=== PATIENT | male | born 1935 | race Caucasian/White ===

== ENCOUNTER → 2016-08-21 | Outpatient (CLI) | payer MEDICARE ==
--- NOTE | 2016-08-21 13:20 | CT ---
EXAMINATION TYPE: CT brain wo con DATE OF EXAM: 08/21/2016 COMPARISON: NONE HISTORY: memory loss CT DLP: [address] of the brain was performed. The ventricles, basal cisterns and sulci overlying the cerebral convexities demonstrate moderate enla rgement. There is no evidence for intracranial hemorrhage or sulcal effacement. There is decreased attenuation about the periventricular white matter and deep white matter of both c erebral hemispheres, compatible with chronic small vessel ischemia. Differential diagnosis does inclu de demyelination. No mass effects are seen.No midline shift. Osseous calvarium is intact. If symptoms persist consider MRI. IMPRESSION: 1. Age related atrophic and chronic small vessel ischemic change without acute intracranial process s een at this time.
--- NOTE | 2016-08-21 14:07 | US ---
EXAMINATION TYPE: US carotid duplex BILAT DATE OF EXAM: 08/21/2016 COMPARISON: NONE CLINICAL HISTORY: R41.3 amnesia. Neck pain EXAM MEASUREMENTS: RIGHT: Peak Systolic Velocity (PSV) cm/sec ----- Right CCA: 63.9 ----- Right ICA: 123.6 ----- Right ECA: 110.2 ICA/CCA ratio: 1.9 RIGHT: End Diastole cm/sec ----- Right CCA: 11.9 ----- Right ICA: 26.2 ----- Right ECA: 10.1 LEFT: Peak Systolic Velocity (PSV) cm/sec ----- Left CCA: 76.9 ----- Left ICA: 95.6 ----- Left ECA: 103.6 ICA/CCA ratio: 1.2 LEFT: End Diastole cm/sec ----- Left CCA: 15.5 ----- Left ICA: 22.2 ----- Left ECA: 11.5 VERTEBRALS (direction of flow): Right Vertebral: Antegrade Left Vertebral: Antegrade Bilateral intimal thickening, plaque: throughout bilateral CCA, bulb, ICA and ECA, no elevated veloci ties, no significant stenosis seen at this time Technically difficult and suboptimal visualization of right ICA due to tortuous vessel IMPRESSION: I DO NOT SEE EVIDENCE OF A HEMODYNAMICALLY SIGNIFICANT STENOSIS IN EITHER CAROTID SYSTEM. Criteria for Assigning % of Stenosis / Diameter reduction (Estimation based on the indirect measurements of the internal carotid artery velocities (ICA PSV). 1. Normal (no stenosis)=ICA PSV < 125 cm/s: ratio < 2.0: ICA EDV<40 cm/s. 2. Less than 50% stenosis=ICA PSV < 125 cm/s: ratio < 2.0: ICA EDV<40 cm/s. 3. 50 to 69% stenosis=ICA PSV of 125 to 230 cm/s: ration 2.0 ? 4.0: ICA EDV 40-100 cm/s. 4. Greater than 70% stenosis to near occlusion= ICA PSV > 230 cm/s: ratio > 4.0: ICA EDV > 100 cm/s. 5. Near occlusion= ICA PSV velocities may be low or undetectable: variable ratio and ICA EDV. 6. Total occlusion=unable to detect flow.
== END | disposition home or self-care (01) ==
LOC: RADCTMAIN 12:42
PROVIDERS: ATTEND Family Medicine
DX: I67.82 Cerebral ischemia (principal)
CPT/HCPCS: 70450; 93880

== ENCOUNTER → 2016-09-11 | Outpatient (CLI) | payer MEDICARE ==
--- NOTE | 2016-09-11 09:23 | US ---
EXAMINATION TYPE: US abdomen complete DATE OF EXAM: 09/11/2016 COMPARISON: CT abdomen and pelvis July 08, 2015. PET/CT December 21, 2015 CLINICAL HISTORY: R10.9 ABD Pain. LUQ per patient. History of lung cancer. EXAM MEASUREMENTS: Liver Length: 11.9 cm Gallbladder Wall: 0.4 cm CBD: 0.4 cm Spleen: 8.7 cm Right Kidney: 10.5 x 4.8 x 5.3 cm Left Kidney: 10.4 x 5.2 x 4.9 cm Pancreas: not visualized ankit to bowel gas Liver: wnl Gallbladder: many stones with shadowing Evidence for sonographic Ritchie's sign: No CBD: wnl Spleen: wnl Right Kidney: No hydronephrosis or masses seen Left Kidney: No hydronephrosis or masses seen Upper IVC: wnl Abd Aorta: calcified The visualized liver is slightly heterogeneous. The intrahepatic portion of the IVC is within normal limits. There is some ectasia and atherosclerotic change of visualized abdominal aorta. Multiple sha dowing mobile gallstones are seen in gallbladder. Common bile duct is unremarkable. The pancreas is obscured by overlying bowel gas. The spleen is unremarkable. Kidneys are symmetric and free of hyd ronephrosis. No renal lesions are seen. IMPRESSION: Gallstones without secondary ultrasound evidence for acute cholecystitis. Suboptimal eval uation of pancreas otherwise no significant finding is seen to account for patient's symptoms.
== END | disposition home or self-care (01) ==
LOC: RADUSWWP 07:47
PROVIDERS: ATTEND Family Medicine
DX: K80.20 Calculus of gallbladder without cholecystitis without obstruction (principal); K86.9 Disease of pancreas, unspecified
CPT/HCPCS: 76700

== ENCOUNTER 2016-09-15 17:58 | Observation (INO) | payer MEDICARE ==
[2016-09-15] MEDS ORDERED: SODIUM CHLORIDE 0.9% 500 ML IV STA (18:27)
[2016-09-15] MEDS ORDERED: RX INFO: IV CONTRAST WAS GIVEN 1 EACH MISC MISCELLANE PRN (18:27)
[2016-09-15] MEDS ORDERED: PANTOPRAZOLE 40 MG/10 ML VIAL IVP STA (18:33)
[2016-09-15 19:18] LABS: Basophils # (A) 0.1 k/uL (0-0.2); Basophils % (A) 1 %; CH 34.5; CHCM 32.8; Eosinophils # (A) 0.1 k/uL (0-0.7); Eosinophils % (A) 1 %; HDW 3.25; Luc # (Auto) 0.22; Luc % (Auto) 2; Lymphocytes # (A) 0.6 k/uL (1.0-4.8); Lymphocytes % (A) 7 %; MCH 35.3 pg (25.0-35.0); MCHC 33.3 g/dL (31.0-37.0); MCV 106.1 fL (80.0-100.0); Macrocytosis Moderate; Mean Platelet Volume 8.4; Monocytes # (A) 0.4 k/uL (0-1.0); Monocytes % (A) 5 %; Neutrophils # (A) 7.8 k/uL (1.3-7.7); Neutrophils % (A) 85 %; RBC 2.83 m/uL (4.30-5.90); RDW 14.9 % (11.5-15.5); WBC 9.2 k/uL (3.8-10.6); WBC (Perox) 9.41
[2016-09-15 19:27] LABS: Partial Thromboplastin Time 23.8 sec (22.0-30.0); Prothrombin Time 9.8 sec (9.0-12.0)
[2016-09-15 19:33] LABS: ALT 21 U/L (21-72); AST 22 U/L (17-59); Alkaline Phosphatase 88 U/L (38-126); Amylase 118 U/L (30-110); Anion Gap 11 mmol/L; Blood Urea Nitrogen 27 mg/dL (9-20); Calcium 9.2 mg/dL (8.4-10.2); Carbon Dioxide 29 mmol/L (22-30); Chloride 105 mmol/L (98-107); Glucose 93 mg/dL (74-99); Non-African American GFR(MDRD) >60 (>60 ml/min/1.73 sqM); Potassium 5.1 mmol/L (3.5-5.1); Sodium 145 mmol/L (137-145); Total Bilirubin 0.5 mg/dL (0.2-1.3)
[2016-09-15] MEDS ORDERED: ONDANSETRON 4 MG/2 ML VIAL IVP STA (19:55)
[2016-09-15] MEDS ORDERED: MORPHINE SULFATE 4 MG/ML SYRINGE IVP STA (19:55)
--- NOTE | 2016-09-15 20:23 | CT ---
EXAMINATION TYPE: CT abdomen pelvis w con DATE OF EXAM: 09/15/2016 COMPARISON: 07/08/2015 HISTORY: History of gall stones. Right upper quadrant pain x 3-[address] DLP: 364.60 mGycm CONTRAST: CT scan of the abdomen and pelvis is performed without Oral Contrast and with IV Contrast, patient in jected with 100 mL of Omnipaque 300. FINDINGS: LUNG BASES-: No visible nodule. No infiltrate. LIVER/GB: Small air-containing gallstones are noted. No evidence for wall thickening. No space occ upying hepatic lesion. Biliary tree is of normal caliber. PANCREAS: No inflammation. No distinct mass. SPLEEN: No splenic enlargement. No lesion seen. ADRENALS: No nodule. No thickening. KIDNEYS/BLADDER: No hydronephrosis. Nonobstructing nephrolithiasis of the lower pole left kidney. No disctinct renal mass. Urinary bladder grossly unremarkable. BOWEL: Normal appendix. Normal bowel caliber. No inflammation. Right inguinal hernia contains a gordy rt segment of small bowel. No evidence for strangulation or bowel obstruction. Moderate fecal stasis. GENITAL ORGANS: No gross abnormality. LYMPH NODES: No greater than 1cm abdominal or pelvic lymph nodes are appreciated. AORTA: No significant abnormality. OSSEOUS STRUCTURES: No significant abnormality is seen. OTHER: No significant additional abnormality is seen. IMPRESSION: 1. Right inguinal hernia contains a short segment of small bowel. No evidence for strangulation or genia wel obstruction. 2. Cholelithiasis. 2. Nonobstructing left-sided nephrolithiasis.
--- NOTE | 2016-09-15 20:23 | XR ---
EXAMINATION TYPE: XR KUB DATE OF EXAM: 09/15/2016 COMPARISON: NONE HISTORY: Pain TECHNIQUE: Single supine KUB image of the abdomen is obtained FINDINGS: Small bowel demonstrates no evidence for dilatation or air fluid levels. Gas and fecal material is seen in non-distended colon. No convincing evidence for pneumoperitoneum. No unusual calcifications. The lung bases are clear. The osseous structures are intact. IMPRESSION: 1. Overall nonobstructive bowel gas pattern.
[2016-09-15] MEDS ORDERED: NALOXONE 0.4 MG/ML 1 ML VIAL IV PRN (20:35)
[2016-09-15] MEDS ORDERED: ONDANSETRON 4 MG/2 ML VIAL IVP PRN (20:40)
[2016-09-15] MEDS ORDERED: MORPHINE SULFATE 4 MG/ML SYRINGE IV PRN (20:40)
--- NOTE | 2016-09-15 20:58 | ED ---
General Adult HPI - General Chief complaint: Abdominal Pain Stated complaint: abd pain-dx w/ gall stones last week Time Seen by Provider: 09/15/16 18:09 Source: patient Mode of arrival: ambulatory Limitations: no limitations - History of Present Illness Initial comments: 81-year-old male presents with a 2 month history of generalized abdominal pain. Patient is accompanied by his who states that over the past several days his pain has worsened. Denies any nausea vomiting or diarrhea. Pain is diffuse although does seem to be located in the left upper quadrant. Sharp in nature. Currently 5 out of 10 in severity. Patient was recently diagnosed with gallstones approximately one month ago and currently has an appointment to see general surgery. Patient denies chest pain or shortness of breath. Denies fever or chills. States he has had dark tarry stools for the last several days. He is currently only taking vitamins no current prescription medications. Denies NSAID use. Denies alcohol abuse. Patient does have past medical history of gastric reflux although he is not currently on any medication. - Related Data Home Medications Medication Instructions Recorded Confirmed Cholecalciferol [Vitamin D3] 1,000 unit PO DAILY 09/15/16 09/15/16 Cyanocobalamin (Vitamin B-12) 1,000 mcg PO DAILY 09/15/16 09/15/16 [Vitamin B-12] Allergies Allergy/AdvReac Type Severity Reaction Status Date / Time No Known Allergies Allergy Verified 09/15/16 18:56 Review of Systems ROS Statement: Those systems with pertinent positive or pertinent negative responses have been documented in the HPI. ROS Other: All systems not noted in ROS Statement are negative. 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-pt denies, history of pneumothorax, hx scarlet fever, chronic gastritis, left upper lobe lung mass History of Any Multi-Drug Resistant Organisms: None Reported Past Surgical History: Adenoidectomy, Tonsillectomy Additional Past Surgical History / Comment(s): LEFT CAROTID ENDARTERECTOMY Past Anesthesia/Blood Transfusion Reactions: No Reported Reaction Past Psychological History: No Psychological Hx Reported Smoking Status: Former smoker Past Alcohol Use History: None Reported Past Drug Use History: None Reported - Past Family History Father Family Medical History: Diabetes Mellitus Brother(s) Family Medical History: Deep Vein Thrombosis (DVT) General Exam Limitations: no limitations General appearance: alert, in no apparent distress Head exam: Present: atraumatic, normocephalic, normal inspection Eye exam: Present: normal appearance, PERRL, EOMI ENT exam: Present: normal exam Neck exam: Present: normal inspection, full ROM. Absent: tenderness Respiratory exam: Present: normal lung sounds bilaterally Cardiovascular Exam: Present: regular rate, normal rhythm GI/Abdominal exam: Present: soft, tenderness, hyperactive bowel sounds. Absent : distended, guarding Rectal exam: Present: heme (+) stool, black stool exam: Present: normal inspection External exam: Present: normal external exam Extremities exam: Present: normal inspection Neurological exam: Present: alert, oriented X3, CN II-XII intact Psychiatric exam: Present: normal affect, normal mood Skin exam: Present: warm, dry Course Vital Signs 09/15/16 09/15/16 09/15/16 18:03 18:14 18:53 Temperature 99.1 F 97.3 F L 98.7 F Pulse Rate 95 83 78 Respiratory 20 16 18 Rate Blood Pressure 147/67 187/77 175/72 O2 Sat by Pulse 98 97 96 Oximetry 09/15/16 20:18 Temperature Pulse Rate 95 Respiratory 18 Rate Blood Pressure 155/70 O2 Sat by Pulse 97 Oximetry - Reevaluation(s) Time: 20:00 Medical Decision Making - Medical Decision Making 81-year-old male presenting with 2 month history of abdominal pain. This pain is worse over the past 2 days. Patient does report melanotic stool. He has received an outpatient workup for his abdominal pain including ultrasound which cholelithiasis and no signs of cholecystitis. On examination patient has generalized tenderness to palpation, hyperactive bowel sounds, non-distended abdomen. Stool is melanotic and Hemoccult positive. Remainder of the physical examination is unremarkable. Patient receives IV pain medication and antiemetics in the emergency department as well as Protonix. Abdominal x-ray shows normal gas pattern, CT of the abdomen and pelvis with IV contrast is obtained and is negative for any acute intra-abdominal process. Laboratory studies reveal hemoglobin 10.0, no elevation in white count, lactic acid is 1 which is normal. Electrolytes are within normal limits. EKG shows normal sinus rhythm with first-degree AV block, ventricular rate of 84 , NE interval is 252, QRS duration is 96, QTC is 444 Patient is made NPO, given IV fluids and will be admitted to internal medicine, Gen. surgery was placed on consult. - Lab Data Result diagrams: 09/15/16 18:50 09/15/16 18:50 Lab Results 09/15/16 09/15/16 09/15/16 Range/Units 18:50 18:50 18:50 WBC 9.2 (3.8-10.6) k/uL RBC 2.83 L (4.30-5.90) m/uL Hgb 10.0 L (13.0-17.5) gm/dL Hct 30.0 L (39.0-53.0) % MCV 106.1 H (80.0-100.0) fL MCH 35.3 H (25.0-35.0) pg MCHC 33.3 (31.0-37.0) g/dL RDW 14.9 (11.5-15.5) % Plt Count 167 (150-450) k/uL Neutrophils % 85 % Lymphocytes % 7 % Monocytes % 5 % Eosinophils % 1 % Basophils % 1 % Neutrophils # 7.8 H (1.3-7.7) k/uL Lymphocytes # 0.6 L (1.0-4.8) k/uL Monocytes # 0.4 (0-1.0) k/uL Eosinophils # 0.1 (0-0.7) k/uL Basophils # 0.1 (0-0.2) k/uL Macrocytosis Moderate PT 9.8 (9.0-12.0) sec INR 1.0 (<1.1) APTT 23.8 (22.0-30.0) sec Sodium 145 (137-145) mmol/L Potassium 5.1 (3.5-5.1) mmol/L Chloride 105 (98-107) mmol/L Carbon Dioxide 29 (22-30) mmol/L Anion Gap 11 mmol/L BUN 27 H (9-20) mg/dL Creatinine 0.91 (0.66-1.25) mg/dL Est GFR (MDRD) Af Amer >60 (>60 ml/min/1.73 sqM) Est GFR (MDRD) Non-Af >60 (>60 ml/min/1.73 sqM) Glucose 93 (74-99) mg/dL Plasma Lactic Acid Jam (0.7-2.0) mmol/L Calcium 9.2 (8.4-10.2) mg/dL Total Bilirubin 0.5 (0.2-1.3) mg/dL AST 22 (17-59) U/L ALT 21 (21-72) U/L Alkaline Phosphatase 88 (38-126) U/L Troponin I (0.000-0.034) ng/mL Total Protein 7.0 (6.3-8.2) g/dL Albumin 3.7 (3.5-5.0) g/dL Amylase 118 H (30-110) U/L Lipase 279 (23-300) U/L Stool Occult Blood (Negative) Blood Type Blood Type Recheck Antibody Screen Spec Expiration Date 09/15/16 09/15/16 09/15/16 Range/Units 18:50 18:50 19:15 WBC (3.8-10.6) k/uL RBC (4.30-5.90) m/uL Hgb (13.0-17.5) gm/dL Hct (39.0-53.0) % MCV (80.0-100.0) fL MCH (25.0-35.0) pg MCHC (31.0-37.0) g/dL RDW (11.5-15.5) % Plt Count (150-450) k/uL Neutrophils % % Lymphocytes % % Monocytes % % Eosinophils % % Basophils % % Neutrophils # (1.3-7.7) k/uL Lymphocytes # (1.0-4.8) k/uL Monocytes # (0-1.0) k/uL Eosinophils # (0-0.7) k/uL Basophils # (0-0.2) k/uL Macrocytosis PT (9.0-12.0) sec INR (<1.1) APTT (22.0-30.0) sec Sodium (137-145) mmol/L Potassium (3.5-5.1) mmol/L Chloride (98-107) mmol/L Carbon Dioxide (22-30) mmol/L Anion Gap mmol/L BUN (9-20) mg/dL Creatinine (0.66-1.25) mg/dL Est GFR (MDRD) Af Amer (>60 ml/min/1.73 sqM) Est GFR (MDRD) Non-Af (>60 ml/min/1.73 sqM) Glucose (74-99) mg/dL Plasma Lactic Acid Jam 1.0 (0.7-2.0) mmol/L Calcium (8.4-10.2) mg/dL Total Bilirubin (0.2-1.3) mg/dL AST (17-59) U/L ALT (21-72) U/L Alkaline Phosphatase (38-126) U/L Troponin I 0.032 (0.000-0.034) ng/mL Total Protein (6.3-8.2) g/dL Albumin (3.5-5.0) g/dL Amylase (30-110) U/L Lipase (23-300) U/L Stool Occult Blood (Negative) Blood Type O Positive Blood Type Recheck No Antibody Screen NEGATIVE Spec Expiration Date 09/18/2016 - 234909/15/16 Range/Units 19:30 WBC (3.8-10.6) k/uL RBC (4.30-5.90) m/uL Hgb (13.0-17.5) gm/dL Hct (39.0-53.0) % MCV (80.0-100.0) fL MCH (25.0-35.0) pg MCHC (31.0-37.0) g/dL RDW (11.5-15.5) % Plt Count (150-450) k/uL Neutrophils % % Lymphocytes % % Monocytes % % Eosinophils % % Basophils % % Neutrophils # (1.3-7.7) k/uL Lymphocytes # (1.0-4.8) k/uL Monocytes # (0-1.0) k/uL Eosinophils # (0-0.7) k/uL Basophils # (0-0.2) k/uL Macrocytosis PT (9.0-12.0) sec INR (<1.1) APTT (22.0-30.0) sec Sodium (137-145) mmol/L Potassium (3.5-5.1) mmol/L Chloride (98-107) mmol/L Carbon Dioxide (22-30) mmol/L Anion Gap mmol/L BUN (9-20) mg/dL Creatinine (0.66-1.25) mg/dL Est GFR (MDRD) Af Amer (>60 ml/min/1.73 sqM) Est GFR (MDRD) Non-Af (>60 ml/min/1.73 sqM) Glucose (74-99) mg/dL Plasma Lactic Acid Jam (0.7-2.0) mmol/L Calcium (8.4-10.2) mg/dL Total Bilirubin (0.2-1.3) mg/dL AST (17-59) U/L ALT (21-72) U/L Alkaline Phosphatase (38-126) U/L Troponin I (0.000-0.034) ng/mL Total Protein (6.3-8.2) g/dL Albumin (3.5-5.0) g/dL Amylase (30-110) U/L Lipase (23-300) U/L Stool Occult Blood Positive (Negative) Blood Type Blood Type Recheck Antibody Screen Spec Expiration Date Disposition Clinical Impression: GI bleed, Abdominal pain Disposition: ADMITTED IP TO THIS [facility] Condition: Stable Referrals: Luis Armando Rubio DO [Primary Care Provider] - 1-2 days Time of Disposition: 20:48 Decision to Admit Reason: Admit from EC Decision Date: 09/15/16 Decision Time: 20:49
[2016-09-15] MEDS: DEXTROSE 5%-0.45% NACL 1,000 ML IV SCH (22:31)
[2016-09-16 01:31] LABS: Basophils # (A) 0.1 k/uL (0-0.2); Basophils % (A) 1 %; CH 34.2; CHCM 31.6; Eosinophils # (A) 0.2 k/uL (0-0.7); Eosinophils % (A) 2 %; HCT 27.6 % (39.0-53.0); HDW 3.23; HGB 9.2 gm/dL (13.0-17.5); Hypochromasia Moderate; Luc # (Auto) 0.27; Luc % (Auto) 4; Lymphocytes # (A) 0.7 k/uL (1.0-4.8); Lymphocytes % (A) 10 %; MCH 36.5 pg (25.0-35.0); MCHC 33.3 g/dL (31.0-37.0); MCV 109.6 fL (80.0-100.0); Macrocytosis Marked; Mean Platelet Volume 8.3; Monocytes # (A) 0.4 k/uL (0-1.0); Monocytes % (A) 5 %; Neutrophils # (A) 5.3 k/uL (1.3-7.7); Neutrophils % (A) 78 %; RBC 2.52 m/uL (4.30-5.90); RDW 14.9 % (11.5-15.5); WBC 6.8 k/uL (3.8-10.6); WBC (Perox) 6.99
[2016-09-16 02:44] LABS: Manual Review Performed
[2016-09-16 02:45] LABS: Polychromasia Present
[2016-09-16] MEDS: PANTOPRAZOLE 40 MG/10 ML VIAL IV SCH ×2 (05:56→16:01)
[2016-09-16] MEDS: DEXTROSE 5%-0.45% NACL 1,000 ML IV SCH ×2 (05:57→13:46)
[2016-09-16 06:50] LABS: Appearance,Urine Clear (Clear); Bacteria,Urine Rare /hpf; Bilirubin,Urine Negative (Negative); Glucose,Urine (UA) Negative (Negative); Ketones,Urine Negative (Negative); Leukocyte Esterase,Urine Large (Negative); Mucus,Urine Rare /hpf; Nitrite,Urine Negative (Negative); PH, Urine 5.5 (5.0-8.0); Particle Count 3053; Protein,Urine Trace (Negative); RBC,Urine 1 /hpf (0-5); Squamous Epithelial Cell,Urine <1 /hpf (0-4); UA Billing (MACRO vs. MICRO) MICRO; Urobilinogen,Urine <2.0 mg/dL (<2.0); WBC,Urine 24 /hpf (0-5)
[2016-09-16 07:18] LABS: Basophils % (A) 1 %; CH 34.7; CHCM 32.1; Eosinophils # (A) 0.2 k/uL (0-0.7); Eosinophils % (A) 4 %; HCT 27.6 % (39.0-53.0); HDW 3.19; HGB 8.7 gm/dL (13.0-17.5); Hypochromasia Slight; Luc # (Auto) 0.17; Luc % (Auto) 4; Lymphocytes # (A) 0.5 k/uL (1.0-4.8); Lymphocytes % (A) 13 %; MCH 34.4 pg (25.0-35.0); MCHC 31.6 g/dL (31.0-37.0); MCV 108.9 fL (80.0-100.0); Macrocytosis Marked; Mean Platelet Volume 8.4; Monocytes # (A) 0.3 k/uL (0-1.0); Monocytes % (A) 7 %; Neutrophils # (A) 2.8 k/uL (1.3-7.7); Neutrophils % (A) 71 %; RBC 2.53 m/uL (4.30-5.90); RDW 14.9 % (11.5-15.5); WBC (Perox) 4.29
[2016-09-16 07:35] LABS: Anion Gap 9 mmol/L; Blood Urea Nitrogen 20 mg/dL (9-20); Calcium 8.3 mg/dL (8.4-10.2); Carbon Dioxide 28 mmol/L (22-30); Chloride 106 mmol/L (98-107); Glucose 93 mg/dL (74-99); Non-African American GFR(MDRD) >60 (>60 ml/min/1.73 sqM); Potassium 3.8 mmol/L (3.5-5.1); Sodium 143 mmol/L (137-145)
--- NOTE | 2016-09-16 09:29 | P.GSCN ---
History of Present Illness Consult date: 09/16/16 Reason for Consult: GI bleed History of present illness: Patient hospitalized with complaints of abdominal pain and rectal bleeding. The patient himself actually is a poor historian and denies having any troubles and is unsure as to why he is in the hospital. Per the chart the patient is been having pain in the abdomen for the last 2 months or so. Pain seemed to be most severe in the left upper quadrant. He does have a history of known gallstones. He had a CAT scan performed showing gallstones as well as a right inguinal hernia. Some thickening of the prepyloric region was also appreciated. No mass was seen. The patient still having a small amount of bloody stools. Hemoglobin has gone from 10.0 to 8.7. He states he has never had an endoscopy before. Both gastritis and colitis are listed in his problem list but I am unsure as to how those diagnoses were made. 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-pt denies, history of pneumothorax, hx scarlet fever, chronic gastritis, left upper lobe lung mass History of Any Multi-Drug Resistant Organisms: None Reported Past Surgical History: Adenoidectomy, Tonsillectomy Additional Past Surgical History / Comment(s): LEFT CAROTID ENDARTERECTOMY Past Anesthesia/Blood Transfusion Reactions: No Reported Reaction Past Psychological History: No Psychological Hx Reported Smoking Status: Former smoker Past Alcohol Use History: None Reported Past Drug Use History: None Reported - Past Family History Father Family Medical History: Diabetes Mellitus Brother(s) Family Medical History: Deep Vein Thrombosis (DVT) Medications and Allergies Home Medications Medication Instructions Recorded Confirmed Type Cholecalciferol [Vitamin D3] 1,000 unit PO DAILY 09/15/16 09/15/16 History Cyanocobalamin (Vitamin B-12) 1,000 mcg PO DAILY 09/15/16 09/15/16 History [Vitamin B-12] Allergies Allergy/AdvReac Type Severity Reaction Status Date / Time No Known Allergies Allergy Verified 09/15/16 18:56 Surgical - Exam Vital Signs Temp Pulse Resp BP Pulse Ox 99.1 F 95 20 147/67 98 09/15/16 18:03 09/15/16 18:03 09/15/16 18:03 09/15/16 18:03 09/15/16 18:03 Physical exam: General: Well-developed, well-nourished HEENT: Normocephalic, sclerae nonicteric Abdomen: Nontender, nondistended Extremities: No edema Neuro: Alert and oriented Results - Labs 09/16/16 06:54 09/16/16 06:54 Abnormal Lab Results - Last 24 Hours (Table) 09/15/16 09/15/16 09/16/16 Range/Units 18:50 18:50 00:00 RBC 2.83 L 2.52 L (4.30-5.90) m/uL Hgb 10.0 L 9.2 L (13.0-17.5) gm/dL Hct 30.0 L 27.6 L (39.0-53.0) % MCV 106.1 H 109.6 H (80.0-100.0) fL MCH 35.3 H 36.5 H (25.0-35.0) pg Plt Count 144 L (150-450) k/uL Neutrophils # 7.8 H (1.3-7.7) k/uL Lymphocytes # 0.6 L 0.7 L (1.0-4.8) k/uL BUN 27 H (9-20) mg/dL Calcium (8.4-10.2) mg/dL Amylase 118 H (30-110) U/L Ur Specific [place] (1.001-1.035) Urine Protein (Negative) Ur Leukocyte Esterase (Negative) Urine WBC (0-5) /hpf Urine WBC Clumps (None) /hpf Urine Bacteria (None) /hpf Urine Mucus (None) /hpf 09/16/16 09/16/16 09/16/16 Range/Units 06:30 06:54 06:54 RBC 2.53 L (4.30-5.90) m/uL Hgb 8.7 L (13.0-17.5) gm/dL Hct 27.6 L (39.0-53.0) % MCV 108.9 H (80.0-100.0) fL MCH (25.0-35.0) pg Plt Count 146 L (150-450) k/uL Neutrophils # (1.3-7.7) k/uL Lymphocytes # (1.0-4.8) k/uL BUN (9-20) mg/dL Calcium 8.3 L (8.4-10.2) mg/dL Amylase (30-110) U/L Ur Specific [place] 1.050 H (1.001-1.035) Urine Protein Trace H (Negative) Ur Leukocyte Esterase Large H (Negative) Urine WBC 24 H (0-5) /hpf Urine WBC Clumps Rare H (None) /hpf Urine Bacteria Rare H (None) /hpf Urine Mucus Rare H (None) /hpf Diabetes panel 09/15/16 09/16/16 Range/Units 18:50 06:54 Sodium 145 143 (137-145) mmol/L Potassium 5.1 3.8 (3.5-5.1) mmol/L Chloride 105 106 (98-107) mmol/L Carbon Dioxide 29 28 (22-30) mmol/L BUN 27 H 20 (9-20) mg/dL Creatinine 0.91 0.75 (0.66-1.25) mg/dL Glucose 93 93 (74-99) mg/dL Calcium 9.2 8.3 L (8.4-10.2) mg/dL AST 22 (17-59) U/L ALT 21 (21-72) U/L Alkaline Phosphatase 88 (38-126) U/L Total Protein 7.0 (6.3-8.2) g/dL Albumin 3.7 (3.5-5.0) g/dL Calcium panel 09/15/16 09/16/16 Range/Units 18:50 06:54 Calcium 9.2 8.3 L (8.4-10.2) mg/dL Albumin 3.7 (3.5-5.0) g/dL Pituitary panel 09/15/16 09/16/16 Range/Units 18:50 06:54 Sodium 145 143 (137-145) mmol/L Potassium 5.1 3.8 (3.5-5.1) mmol/L Chloride 105 106 (98-107) mmol/L Carbon Dioxide 29 28 (22-30) mmol/L BUN 27 H 20 (9-20) mg/dL Creatinine 0.91 0.75 (0.66-1.25) mg/dL Glucose 93 93 (74-99) mg/dL Calcium 9.2 8.3 L (8.4-10.2) mg/dL Adrenal panel 09/15/16 09/16/16 Range/Units 18:50 06:54 Sodium 145 143 (137-145) mmol/L Potassium 5.1 3.8 (3.5-5.1) mmol/L Chloride 105 106 (98-107) mmol/L Carbon Dioxide 29 28 (22-30) mmol/L BUN 27 H 20 (9-20) mg/dL Creatinine 0.91 0.75 (0.66-1.25) mg/dL Glucose 93 93 (74-99) mg/dL Calcium 9.2 8.3 L (8.4-10.2) mg/dL Total Bilirubin 0.5 (0.2-1.3) mg/dL AST 22 (17-59) U/L ALT 21 (21-72) U/L Alkaline Phosphatase 88 (38-126) U/L Total Protein 7.0 (6.3-8.2) g/dL Albumin 3.7 (3.5-5.0) g/dL Assessment and Plan (1) GI bleed Narrative/Plan: Will prep for upper and lower endoscopy tomorrow. Risks of bleeding and perforation were discussed. Status: Acute
[2016-09-16] MEDS ORDERED: PEG 3350-NA SULF,BICARB,CL/KCL 4,000 ML BOTTLE PO ONE (09:30)
[2016-09-16 09:41] LABS: Manual Review Performed
[2016-09-16 12:01] LABS: Basophils % (A) 1 %; CH 34.6; CHCM 32.1; Eosinophils # (A) 0.1 k/uL (0-0.7); Eosinophils % (A) 2 %; HCT 28.7 % (39.0-53.0); HDW 3.18; HGB 9.1 gm/dL (13.0-17.5); Hypochromasia Slight; Luc # (Auto) 0.13; Luc % (Auto) 3; Lymphocytes # (A) 0.4 k/uL (1.0-4.8); Lymphocytes % (A) 9 %; MCH 34.5 pg (25.0-35.0); MCHC 31.7 g/dL (31.0-37.0); Macrocytosis Marked; Mean Platelet Volume 8.3; Monocytes # (A) 0.3 k/uL (0-1.0); Monocytes % (A) 6 %; Neutrophils # (A) 3.8 k/uL (1.3-7.7); Neutrophils % (A) 80 %; RBC 2.63 m/uL (4.30-5.90); RDW 14.8 % (11.5-15.5); WBC 4.7 k/uL (3.8-10.6); WBC (Perox) 4.87
[2016-09-16] MEDS ORDERED: FUROSEMIDE 10 MG/ML 2 ML VIAL IV STA (14:02)
[2016-09-16 14:15] LABS: Manual Review Performed
[2016-09-16 14:18] LABS: Polychromasia Present
--- NOTE | 2016-09-16 14:21 | XR ---
EXAMINATION TYPE: XR chest 1V DATE OF EXAM: 09/16/2016 HISTORY: left lower rib pain. REFERENCE: Previous study dated 05/29/2015. FINDINGS: Left upper lobe Mass. Is less conspicuous on today's examination. The lungs are overinflate d. There is scarring in both apices. The heart is not enlarged. There is blunting of the right CP ang le. I could not exclude a small effusion. IMPRESSION: 1. COPD. 2. UPPER LOBE SCARRING BILATERALLY. 3. I SUSPECT A SMALL RIGHT EFFUSION.
[2016-09-16] MEDS ORDERED: IPRATROPIUM-ALBUTEROL 3 ML NEB INHALATION PRN (22:14)
[2016-09-16] MEDS ORDERED: SODIUM CHLORIDE 0.9% 1,000 ML IV SCH (22:15)
[2016-09-16 23:52] VITALS: RESP 18
[2016-09-17] MEDS: PANTOPRAZOLE 40 MG/10 ML VIAL IV SCH (05:58)
[2016-09-17 07:49] LABS: Anion Gap 9 mmol/L; Blood Urea Nitrogen 11 mg/dL (9-20); Calcium 8.7 mg/dL (8.4-10.2); Carbon Dioxide 29 mmol/L (22-30); Chloride 103 mmol/L (98-107); Glucose 82 mg/dL (74-99); Non-African American GFR(MDRD) >60 (>60 ml/min/1.73 sqM); Potassium 4.2 mmol/L (3.5-5.1); Sodium 141 mmol/L (137-145)
[2016-09-17 08:41] VITALS: BP 141/63; TEMP 97.6
[2016-09-17 08:43] VITALS: PULSE 83
--- NOTE | 2016-09-17 09:02 | US ---
EXAMINATION TYPE: US kidneys/renal and bladder DATE OF EXAM: 09/17/2016 COMPARISON: NONE CLINICAL HISTORY: Nephrolithiasis. EXAM MEASUREMENTS: Right Kidney: 11.0 x 4.9 x 4.9 cm Left Kidney: 11.1 x 4.3 x 4.1 cm Incidental finding of gallstones. Right Kidney: probable right stone measuring 0.5 x 0.4 x 0.4cm Left Kidney: upper pole slightly obscured by overlying bowel gas Bladder: wnl Bilateral Jets seen: yes IMPRESSION: 1. Cholelithiasis. 2. Inferior pole right renal stone without evidence of obstruction.
[2016-09-17 11:20] LABS: Vitamin B12 865 pg/mL
[2016-09-17] MEDS ORDERED: PROPOFOL 10 MG/ML 20 ML VIAL IV ONE (12:35)
[2016-09-17] MEDS ORDERED: LIDOCAINE 1% INJ 10MG/ML (20 ML MDV) ONE (12:35)
[2016-09-17] MEDS ORDERED: IV FLUID CONTINUATION 1,000 ML IV ONE (12:37)
--- NOTE | 2016-09-17 13:05 | P.PCN ---
Date of Procedure: 09/17/16 Preoperative Diagnosis: Postoperative Diagnosis: Procedure(s) Performed: PREOPERATIVE DIAGNOSIS: GI bleed, abdominal pain POSTOPERATIVE DIAGNOSIS: Duodenal ulcerations, gastritis with numerous small gastric ulcerations, diverticulosis PROCEDURE: 1. EGD with biopsy 2. Colonoscopy [place]: [facility] [place] SURGEON: Jack Yepez M.D. SPECIMENS: Duodenum, antral ulcer ENDOSCOPIC PROCEDURE: The patient was on the endoscopy table in the left decubitus position. The Olympus gastroscope was inserted into the oropharynx and passed under direct visualization to the region of the third portion of the duodenum. From that point the scope was slowly withdrawn inspecting all surfaces carefully. The patient had evidence of duodenitis with a few small superficial gastric ulcerations present. The pylorus was widely patent. The stomach revealed numerous small gastric ulceration the 2 largest were in the prepyloric region. A biopsy of that area place. The largest ulcer measured approximately 8-10 mm in size. Retroflexion revealed a normal-appearing hiatus. The patient's esophagus appear normal. The patient was kept on the endoscopy table in the left decubitus position. The Olympus colonoscope was inserted into the anus and passed under direct visualization to the base of the cecum. The appendiceal orifice was visualized. From that point the scope was slowly withdrawn inspecting all surfaces carefully. There were no neoplastic inflammatory or polypoid lesions throughout the cecum, ascending, transverse, descending, sigmoid and rectum. There was extensive diverticulosis noted about the colon. Digital rectal examination was normal. The patient was taken to the recovery room in stable condition per anesthesia guidelines. RECOMMENDATIONS: Continue antiacid therapy. Await biopsies results. Resume diet. Consider short-term follow-up upper endoscopy in 3-6 months. Implants: Indications for Procedure: Operative Findings: Description of Procedure:
[2016-09-17] MEDS ORDERED: SUCRALFATE 1 GM TAB PO SCH (17:30)
--- NOTE | 2016-09-19 11:40 | HP ---
DATE OF ADMISSION: 09/16/16 CHIEF COMPLAINT: Abdominal pain. HISTORY OF PRESENT ILLNESS: Mr. Alfredo is an 81 year old male with a known history of COPD, GERD, dementia, and memory impairment, was brought in by his as he was complaining of generalized abdominal pain. The patient apparently has been having decreased abdominal discomfort for the past two months. Over the past several days, his pain worsened. Otherwise, denied any nausea, vomiting or diarrhea. Patient says she is having left upper quadrant pain, sharp in nature 5 out of 10 in severity. The patient was recently diagnosed with gallstones approximately one month ago and currently has an appointment to see general surgery. Otherwise, denied any complaints of chest pain or short of breath. Denied any fever or chills. The patient states that he had dark tarry stools for the last several days. Currently he is not taking any vitamins or iron pills. Denied any NSAID used. Denied alcohol use. The patient does have history of GERD. The patient had CT scan of the abdomen showed right inguinal hernia, contains a short segment of the small bowel. No evidence of strangulation or bowel obstruction noted. Cholelithiasis, nonobstructing. Left sided nephrolithiasis. REVIEW OF SYSTEMS: Constitutional: The patient denied any complaints of chest pain or short of breath. The patient does have pain in the left upper quadrant. No nausea. No vomiting. No diarrhea. No dysuria. No hematuria. ENDOCRINE: Negative. PSYCHIATRIC: Negative. SKIN: Negative. MUSCULOSKELETAL: Negative. All other review of systems, negative except as above. Otherwise, the patient is a poor historian. 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 PAST SURGICAL HISTORY: appendectomy, tonsillectomy, left carotid endarterectomy. SOCIAL HISTORY: The patient is a former smoker. Quit several years ago. Denied any alcohol. Denied any drugs or IVDA. FAMILY HISTORY: Father had diabetes mellitus. Brother had DVT. ALLERGIES: No known drug allergies. HOME MEDICATIONS: 1. Vitamin D3. 2. Vitamin B12. PHYSICAL EXAMINATION: An 81 year old male lying in bed awake, alert and oriented times two to three, appears to be in no apparent distress. The patient does have underlying memory impairment. VITALS: Blood pressure 123/60. Pulse 74. Respiratory rate 16. Temperature afebrile. Pulse ox 94% on room air. HEENT: Atraumatic, normocephalic. NECK: Supple. No JVD. CVS: S1, S2 heard. No murmurs. No gallop. LUNGS: Bilateral air entry is present. No wheezing. No crackles. Nonlabored breathing. ABDOMEN: Soft, left upper quadrant tenderness below the ribs. No guarding. No rigidity. Bowel sounds present. WINDOWS INFRASTRUCTURE ENGINEER: Awake, alert and oriented times two to three. The patient does have underlying memory impairment, able to move all his extremities. EXTREMITIES: No edema. Pulses palpable bilaterally. No clubbing or cyanosis. PSYCHIATRIC: Cooperative. LABORATORY DATA: WBC 6.5, hemoglobin 9.2. MCV 109.6, platelets 144. Sodium 143, potassium 3.8, chloride 106, bicarb 28, BUN 20, creatinine 0.75. Calcium 8.3. ( ) positive. UA showed large leukocyte esterase. WBC 24. Squamous epithelial less then 1 and rare bacteremia, specific gravity, 1.050. IMPRESSION: 1. Left upper quadrant abdominal pain. CT of the abdomen and pelvis showed no evidence at this time. No evidence of pneumonia. We will continue pain management. 2. Dark tarry colored stools. Possible gastrointestinal bleed. General surgery is planning for endoscopy and colonoscopy tomorrow. 3. Cholelithiasis. 4. Nonobstructing left sided nephrolithiasis. 5. Right inguinal hernia containing small segment of small bowel, no evidence of strangulation or obstruction noted. 6. Memory impairment. 7. History of gastroesophageal reflux disease and chronic gastritis. 8. Macrocytic anemia. 9. Chronic obstructive pulmonary disease. 10. Hyperlipidemia. 11. History of colitis. 12. Peripheral vascular disease with carotid artery involvement status post carotid endarterectomy. 13. History of hemothorax. 14. Deep vein thrombosis prophylaxis with SCDs. DISCUSSION AND PLAN: The patient will be continued on IV Fluids and pain management. CT of the abdomen and pelvis showed no etiology for left upper quadrant pain. We will get ultrasound renal due to nephrolithiasis. The patient does have abnormal urine sample. We will check for urine cultures. The patient otherwise denied any dysuria. No fever or leukocytosis noted. We will get chest x-ray as well and continue with breathing treatments prn. Will follow up closely. Further recommendations based on clinical course. MTDD
== END 2016-09-17 15:00 | disposition home or self-care (01) ==
LOC: EC 17:58 → 5MS5E 20:35
PROVIDERS: ADMIT Hospitalist; ATTEND Hospitalist
DX: K80.20 Calculus of gallbladder without cholecystitis without obstruction (principal); K57.90 Diverticulosis of intestine, part unspecified, without perforation or abscess without bleeding; K29.50 Unspecified chronic gastritis without bleeding; K26.9 Duodenal ulcer, unspecified as acute or chronic, without hemorrhage or perforation; K25.9 Gastric ulcer, unspecified as acute or chronic, without hemorrhage or perforation; K40.90 Unilateral inguinal hernia, without obstruction or gangrene, not specified as recurrent; N20.0 Calculus of kidney; K21.9 Gastro-esophageal reflux disease without esophagitis; J44.9 Chronic obstructive pulmonary disease, unspecified; E78.5 Hyperlipidemia, unspecified; F03.90 Unspecified dementia, unspecified severity, without behavioral disturbance, psychotic disturbance, mood disturbance, and anxiety; I73.9 Peripheral vascular disease, unspecified; I44.0 Atrioventricular block, first degree; D53.9 Nutritional anemia, unspecified; Z85.9 Personal history of malignant neoplasm, unspecified; Z87.19 Personal history of other diseases of the digestive system; Z87.891 Personal history of nicotine dependence
CPT/HCPCS: 96376 ×2; 96361 ×2; 96375 ×2; 96374; 99285; 36415; 93005; 86900; 86901; 88305; 80053; 80048 ×2; 82607; 82150; 83605; 83690; 84484; 85025 ×2; 85610; 85730; 86850; 82272; 81001; 88342; 87086; 71010; 74000; 76770; 74177; 45378; 43239; G0378 ×3; J2270; J1940; J2405; J2001; Q9967; J2704; C9113 ×3

== ENCOUNTER 2017-03-10 10:52 | Day surgery (SDC) | payer MEDICARE ==
[2017-03-09 09:11] VITALS: BMI 21.0
[~2017-03-10 10:52] MED LIST: LACTATED RINGERS 1,000 ML IV SCH; LIDOCAINE 1% 20 ML VIAL (10MG/ML) FOR IV START INTRADERMA PRN
[2017-03-10 11:13] VITALS: TEMP 98.4
[2017-03-10 11:31] LABS: Basophils # (A) 0.1 k/uL (0-0.2); Basophils % (A) 1 %; CH 33.8; CHCM 31.1; Eosinophils # (A) 0.1 k/uL (0-0.7); Eosinophils % (A) 1 %; HCT 28.7 % (39.0-53.0); HDW 3.72; HGB 8.9 gm/dL (13.0-17.5); Hypochromasia Marked; Luc # (Auto) 0.24; Luc % (Auto) 2; Lymphocytes # (A) 0.8 k/uL (1.0-4.8); Lymphocytes % (A) 8 %; MCHC 30.9 g/dL (31.0-37.0); Macrocytosis Marked; Mean Platelet Volume 7.9; Monocytes # (A) 0.3 k/uL (0-1.0); Monocytes % (A) 3 %; Neutrophils # (A) 8.3 k/uL (1.3-7.7); Neutrophils % (A) 84 %; Poikilocytosis Slight; RBC 2.61 m/uL (4.30-5.90); RDW 15.8 % (11.5-15.5); WBC 9.9 k/uL (3.8-10.6); WBC (Perox) 9.46
[2017-03-10 11:44] LABS: ALT 25 U/L (21-72); AST 27 U/L (17-59); Alkaline Phosphatase 105 U/L (38-126); Anion Gap 10 mmol/L; Blood Urea Nitrogen 24 mg/dL (9-20); Calcium 9.7 mg/dL (8.4-10.2); Carbon Dioxide 29 mmol/L (22-30); Chloride 105 mmol/L (98-107); Glucose 96 mg/dL (74-99); Non-African American GFR(MDRD) >60 (>60 ml/min/1.73 sqM); Potassium 4.3 mmol/L (3.5-5.1); Sodium 144 mmol/L (137-145); Total Bilirubin 0.4 mg/dL (0.2-1.3); Total Protein 7.4 g/dL (6.3-8.2)
[2017-03-10] MEDS ORDERED: LIDOCAINE 1% INJ 10MG/ML (20 ML MDV) ONE (12:01)
[2017-03-10] MEDS ORDERED: PROPOFOL 10 MG/ML 20 ML VIAL IV ONE (12:01)
--- NOTE | 2017-03-10 12:22 | P.PCN ---
Date of Procedure: 03/10/17 Procedure(s) Performed: Preoperative Dx: Abdominal pain Postoperative Dx: Gastritis with small superficial bleeding ulcer, small hiatal hernia Procedure: EGD with Bx and electrocautery Anesthesia: Sedation Endoscopist: Dr. Yepez Specimens: Antrum Endoscopic Procedure: The patient was on the endoscopy table in the left decubitus position. The Olympus gastroscope was inserted into the oropharynx and passed under direct visualization to the region of the third portion of the duodenum. From that point the scope was slowly withdrawn inspecting all surfaces carefully. There were no neoplastic inflammatory or polypoid lesions throughout the duodenum. The pylorus was widely patent. The stomach was carefully inspected. There was diffuse gastritis present. A few small superficial ulcerations were once again seen although improved from previous. Prior to us even insufflating the stomach there was noted to be active bleeding coming from a small area of suspected angiodysplasia. This was controlled using a very small amount of electrocautery through the gold probe. Retroflexion revealed a small sliding hiatal hernia. A biopsy of the prepyloric region took place. The esophagus appeared otherwise normal. Recommendations: Add Carafate. Increase Prilosec to twice a day. Patient states today he has not had any pain recently although at times the patient can be confused. If pain recurs we'll repeat CAT scan abdomen and pelvis.
[2017-03-10 12:25] VITALS: RESP 18
[2017-03-10 13:07] VITALS: BP 170/67; PULSE 81
== END 2017-03-10 13:20 | disposition home or self-care (01) ==
LOC: ORWHC2ENDO 10:52
PROVIDERS: ATTEND Surgery
DX: K29.50 Unspecified chronic gastritis without bleeding (principal); K25.4 Chronic or unspecified gastric ulcer with hemorrhage; K44.9 Diaphragmatic hernia without obstruction or gangrene; J44.9 Chronic obstructive pulmonary disease, unspecified; F03.90 Unspecified dementia, unspecified severity, without behavioral disturbance, psychotic disturbance, mood disturbance, and anxiety; K21.9 Gastro-esophageal reflux disease without esophagitis; E78.5 Hyperlipidemia, unspecified; I73.9 Peripheral vascular disease, unspecified; I10 Essential (primary) hypertension; Z85.9 Personal history of malignant neoplasm, unspecified; Z79.899 Other long term (current) drug therapy; Z79.891 Long term (current) use of opiate analgesic
CPT/HCPCS: 88305; 80053; 85025; 88342; 43239; 43255; J2001; J2704

== ENCOUNTER 2017-06-06 17:53 | Inpatient (IN) | payer MEDICARE ==
--- NOTE | 2017-06-06 18:17 | ED ---
General Adult HPI - General Source: patient, EMS, RN notes reviewed Mode of arrival: EMS Limitations: no limitations <Jack Osborn - Last Filed: 06/06/17 19:24> <Billy Parsons - Last Filed: 06/06/17 20:20> - General Chief complaint: Fall Stated complaint: Fall Time Seen by Provider: 06/06/17 18:04 - History of Present Illness Initial comments: Patient 81-year-old male who presents emergency room today with a chief complaint of a fall that occurred just prior to arrival. Patient brought to the emergency room by EMS. Patient states he was walking outside slipped on a second to last step outside falling down onto the right hip. Admits to pain locally. Patient's at bedside states she was unable to help him up on her own called EMS. Patient does admit that he does feel some pain some discomfort to the right hip area. Was given pain medication by EMS. She is currently comfortable at this time does not want any other pain medicine. Patient denies any head injury or loss conscious. Denies any neck, back pain. Denies any other injury from the fall. Patient denies any recent fever, chills, shortness of breath, chest pain, abdominal pain, nausea or vomiting, numbness or tingling , dysuria or hematuria, headaches or visual changes, or any other complaints. ( Jack Osborn) - Related Data Home Medications Medication Instructions Recorded Confirmed Cholecalciferol [Vitamin D3] 1,000 unit PO DAILY 09/15/16 06/06/17 Cyanocobalamin (Vitamin B-12) 1,000 mcg PO DAILY 09/15/16 06/06/17 [Vitamin B-12] Ferrous Sulfate [Feosol] 325 mg PO DAILY 03/09/17 06/06/17 Omeprazole [PriLOSEC] 20 mg PO AC-BRKFST 03/09/17 06/06/17 traMADol HCl [Ultram] 50 mg PO TID PRN 03/09/17 06/06/17 Acetaminophen-Codeine 300-30mg 1 tab PO Q8H PRN 06/06/17 06/06/17 [Tylenol #3] Sucralfate [Carafate] 1 gm PO ACHS PRN 06/06/17 06/06/17 Allergies Allergy/AdvReac Type Severity Reaction Status Date / Time No Known Allergies Allergy Verified 06/06/17 18:24 Review of Systems ROS Other: All systems not noted in ROS Statement are negative. <Jack Osborn - Last Filed: 06/06/17 19:24> ROS Other: All systems not noted in ROS Statement are negative. <Billy Parsons - Last Filed: 06/06/17 20:20> ROS Statement: Those systems with pertinent positive or pertinent negative responses have been documented in the HPI. 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-pt denies, history of pneumothorax, hx scarlet fever, chronic gastritis, hx lung cancer with radiation History of Any Multi-Drug Resistant Organisms: None Reported Past Surgical History: Adenoidectomy, Tonsillectomy Additional Past Surgical History / Comment(s): LEFT CAROTID ENDARTERECTOMY Past Anesthesia/Blood Transfusion Reactions: No Reported Reaction Past Psychological History: Depression Smoking Status: Former smoker - Past Family History Father Family Medical History: Diabetes Mellitus Brother(s) Family Medical History: Deep Vein Thrombosis (DVT) <Jack Osborn - Last Filed: 06/06/17 19:24> General Exam Limitations: no limitations <Jack Osborn - Last Filed: 06/06/17 19:24> <Billy Parsons - Last Filed: 06/06/17 20:20> - General Exam Comments Initial Comments: General: The patient is awake and alert, in no distress, and does not appear acutely ill. Eye: Pupils are equal, round and reactive to light, extra-ocular movements are intact. No nystagmus. There is normal conjunctiva bilaterally. No signs of icterus. Ears, nose, mouth and throat: There are moist mucous membranes and no oral lesions. Neck: The neck is supple, there is no tenderness or JVD. Cardiovascular: There is a regular rate and rhythm. No murmur, rub or gallop is appreciated. Respiratory: Lungs are clear to auscultation, respirations are non-labored, breath sounds are equal. No wheezes, stridor, rales, or rhonchi. Gastrointestinal: Soft, non-distended, non-tender abdomen without masses or organomegaly noted. There is no rebound or guarding present. No CVA tenderness. Musculoskeletal: No tenderness to the cervical, thoracic spine. Patient's right leg does show some mild shortening and rotation. There is tenderness over the lateral aspect of the right hip. Sensation intact. Pulses equal bilaterally 2+. Neurological: A&O x 3. CN II-XII intact, There are no obvious motor or sensory deficits. Coordination appears grossly intact. Speech is normal. Skin: Skin is warm and dry and no rashes or lesions are noted. Psychiatric: Cooperative, appropriate mood & affect, normal judgment. (Jack Osborn) Course <Jack Osborn - Last Filed: 06/06/17 19:24> <Billy Parsons - Last Filed: 06/06/17 20:20> Vital Signs 06/06/17 06/06/17 06/06/17 18:03 19:25 19:58 Temperature 97.7 F 97.9 F Pulse Rate 85 74 84 Respiratory 17 16 18 Rate Blood Pressure 193/79 190/114 184/74 O2 Sat by Pulse 98 95 96 Oximetry - Reevaluation(s) Reevaluation #1: 06/06/17 19:29 I did proceed a [id number] evaluation the patient did discuss findings with him. Patient does have demonstration about subcapital hip fracture. He will be with the assessment and plan. (Billy Parsons) EKG Findings - EKG Results: EKG: interpreted by CINDY, sinus rhythm (EKG shows sinus rhythm first-degree AV block some artifact is present rate of 83. Interval 232 QRS duration 94 QT since QTC 370/444 nonspecific configuration) <Billy Parsons - Last Filed: 06/06/17 20:20> Medical Decision Making <Jack Osborn - Last Filed: 06/06/17 19:24> - Lab Data Result diagrams: 06/06/17 19:20 06/06/17 19:20 <Billy Parsons - Last Filed: 06/06/17 20:20> - Medical Decision Making Patient's x-ray of the right hip does show a subcapital fracture. Results were discussed with patient and family. Patient's labs currently pending. Chest x- ray was obtained and showing no acute abnormalities. Results discussed with attending physician Dr. Parsons. Case discussed with [facility] physician contact center assistant Graicela Bustos who will accept admission for Dr. Heithoff. Patient will have Hospital consult for medical clearance. (Jack Osborn) - Lab Data Lab Results 06/06/17 06/06/17 06/06/17 Range/Units 19:20 19:20 19:20 WBC 8.8 (3.8-10.6) k/uL RBC 2.91 L (4.30-5.90) m/uL Hgb 9.7 L (13.0-17.5) gm/dL Hct 30.6 L (39.0-53.0) % MCV 105.2 H (80.0-100.0) fL MCH 33.5 (25.0-35.0) pg MCHC 31.8 (31.0-37.0) g/dL RDW 16.6 H (11.5-15.5) % Plt Count 258 (150-450) k/uL Neutrophils % 84 % Lymphocytes % 8 % Monocytes % 4 % Eosinophils % 1 % Basophils % 1 % Neutrophils # 7.4 (1.3-7.7) k/uL Lymphocytes # 0.7 L (1.0-4.8) k/uL Monocytes # 0.3 (0-1.0) k/uL Eosinophils # 0.1 (0-0.7) k/uL Basophils # 0.1 (0-0.2) k/uL Hypochromasia Moderate Poikilocytosis Slight Anisocytosis Slight Macrocytosis Moderate PT 9.7 (9.0-12.0) sec INR 1.0 (<1.2) APTT 22.6 (22.0-30.0) sec Sodium 142 (137-145) mmol/L Potassium 3.9 (3.5-5.1) mmol/L Chloride 101 (98-107) mmol/L Carbon Dioxide 31 H (22-30) mmol/L Anion Gap 10 mmol/L BUN 21 H (9-20) mg/dL Creatinine 0.80 (0.66-1.25) mg/dL Est GFR (CKD-EPI)AfAm >90 (>60 ml/min/1.73 sqM) Est GFR (CKD-EPI)NonAf 83 (>60 ml/min/1.73 sqM) Glucose 104 H (74-99) mg/dL Calcium 9.3 (8.4-10.2) mg/dL Total Bilirubin 0.4 (0.2-1.3) mg/dL AST 26 (17-59) U/L ALT 20 L (21-72) U/L Alkaline Phosphatase 97 (38-126) U/L Total Protein 7.3 (6.3-8.2) g/dL Albumin 3.8 (3.5-5.0) g/dL Disposition Time of Disposition: 19:25 <Jack Osborn - Last Filed: 06/06/17 19:24> <Billy Parsons - Last Filed: 06/06/17 20:20> Clinical Impression: Subcapital fracture of femur Disposition: ADMITTED IP TO THIS HOSP Condition: Stable
[2017-06-06] MEDS ORDERED: SODIUM CHLORIDE 0.9% 1,000 ML IV STA (18:36)
--- NOTE | 2017-06-06 18:50 | XR ---
EXAMINATION TYPE: XR Hip RT and AP Pelvis DATE OF EXAM: 06/06/2017 COMPARISON: NONE HISTORY: Right hip pain after a fall TECHNIQUE: A single AP view of the pelvis is obtained. Two views of the right hip are obtained. FINDINGS: There is a subcapital fracture of the right hip with mild impaction and 2 mm medial displac ement of the distal fracture fragment. This is not comminuted. Moderate femoral acetabular arthropath y seen bilaterally. Remaining pelvic osseous structures appear intact. Probable bone island is seen w ithin the right superior pubic ramus. Extensive atherosclerosis is noted with degenerative changes of the lumbosacral junction. IMPRESSION: Acute minimally displaced noncomminuted subcapital right hip fracture.
--- NOTE | 2017-06-06 19:03 | XR ---
EXAMINATION TYPE: XR chest 1V DATE OF EXAM: 06/06/2017 COMPARISON: 09/16/2016 HISTORY: Colon cancer and chest pain after fall TECHNIQUE: Single frontal view of the chest is obtained. FINDINGS: Spiculated density within the left apex represents the patient's known cancer. Pleural par enchymal scarring in the right lung apex is noted as well as to lesser degree within the left lung ap ex. Pulmonary hyperinflation represents underlying COPD. Cardiomediastinal silhouette is within destiney l limits of size. No displaced rib fractures are identified. IMPRESSION: 1. No identified acute displaced rib fractures. 2. Left upper lobe density represents the patient's underlying known lung carcinoma. 3. Pulmonary emphysematous changes.
[2017-06-06] MEDS ORDERED: ACETAMINOPHEN TAB 325 MG TAB PO PRN (19:25)
[2017-06-06] MEDS ORDERED: MORPHINE SULFATE/PF 10MG/10ML VL IV PRN (19:25)
[2017-06-06] MEDS ORDERED: NALOXONE 0.4 MG/ML 1 ML VIAL IV PRN (19:25)
[2017-06-06] MEDS ORDERED: SODIUM CHLORIDE 0.9% 1,000 ML IV ONE (19:25)
[2017-06-06] MEDS ORDERED: MORPHINE SULFATE 4 MG/ML SYRINGE IV STA (19:31)
[2017-06-06] MEDS ORDERED: hydrALAZINE HCL 20 MG/ML 1 ML VIAL IVP PRN ×2 (19:32→21:28)
[2017-06-06 19:49] LABS: ALT 20 U/L (21-72); AST 26 U/L (17-59); Albumin 3.8 g/dL (3.5-5.0); Alkaline Phosphatase 97 U/L (38-126); Anion Gap 10 mmol/L; Blood Urea Nitrogen 21 mg/dL (9-20); Calcium 9.3 mg/dL (8.4-10.2); Carbon Dioxide 31 mmol/L (22-30); Chloride 101 mmol/L (98-107); Glucose 104 mg/dL (74-99); Potassium 3.9 mmol/L (3.5-5.1); Sodium 142 mmol/L (137-145); Total Bilirubin 0.4 mg/dL (0.2-1.3); Total Protein 7.3 g/dL (6.3-8.2)
[2017-06-06 19:51] LABS: Anisocytosis Slight; Basophils # (A) 0.1 k/uL (0-0.2); Basophils % (A) 1 %; Eosinophils # (A) 0.1 k/uL (0-0.7); Eosinophils % (A) 1 %; HCT 30.6 % (39.0-53.0); HGB 9.7 gm/dL (13.0-17.5); Hypochromasia Moderate; Lymphocytes # (A) 0.7 k/uL (1.0-4.8); Lymphocytes % (A) 8 %; MCH 33.5 pg (25.0-35.0); MCHC 31.8 g/dL (31.0-37.0); MCV 105.2 fL (80.0-100.0); Macrocytosis Moderate; Mean Platelet Volume 7.9; Monocytes # (A) 0.3 k/uL (0-1.0); Monocytes % (A) 4 %; Neutrophils # (A) 7.4 k/uL (1.3-7.7); Neutrophils % (A) 84 %; Platelet Count 258 k/uL (150-450); Poikilocytosis Slight; RBC 2.91 m/uL (4.30-5.90); RDW 16.6 % (11.5-15.5); WBC 8.8 k/uL (3.8-10.6)
[2017-06-06 19:53] LABS: Partial Thromboplastin Time 22.6 sec (22.0-30.0); Prothrombin Time 9.7 sec (9.0-12.0)
[2017-06-06] MEDS ORDERED: IPRATROPIUM-ALBUTEROL 3 ML NEB INHALATION PRN (21:28)
[2017-06-06] MEDS ORDERED: SUCRALFATE 1 GM TAB PO PRN (21:29)
[2017-06-06 22:06] VITALS: BMI 24.3
[2017-06-06] MEDS: HEPARIN SODIUM,PORCINE 5,000 UNIT/ML 1 ML VIAL SQ SCH (22:31)
[2017-06-06] MEDS: amLODIPine 5 MG TAB PO SCH (22:31)
[2017-06-07 04:19] LABS: Appearance,Urine Clear (Clear); Bilirubin,Urine Negative (Negative); Blood,Urine Negative (Negative); Color,Urine Light Yellow; Glucose,Urine (UA) Negative (Negative); Hyaline Casts,Urine 1 /lpf (0-2); Ketones,Urine Negative (Negative); Leukocyte Esterase,Urine Small (Negative); Mucus,Urine Rare /hpf; Nitrite,Urine Negative (Negative); Protein,Urine Negative (Negative); RBC,Urine 1 /hpf (0-5); Urobilinogen,Urine <2.0 mg/dL (<2.0); WBC,Urine 7 /hpf (0-5)
[2017-06-07] MEDS ORDERED: PANTOPRAZOLE 40 MG TABLET PO SCH (07:30)
[2017-06-07] MEDS: IPRATROPIUM-ALBUTEROL 3 ML NEB INHALATION SCH ×3 (08:22→21:09)
[2017-06-07] MEDS: SYMBICORT 160-4.5 MCG INHALER INHALATION SCH ×2 (08:22→21:09)
--- NOTE | 2017-06-07 09:13 | CONS ---
CONSULTATION DATE OF SERVICE: 06/06/2017. REASON FOR CONSULTATION: Advice regarding COPD and other multiple medical issues requested by Dr. Zhang. HISTORY OF PRESENT ILLNESS: This 81-year-old gentleman with a past medical history of COPD, dementia, history of GERD, hyperlipidemia, memory impairment, history of colitis, history of adenoidectomy and tonsillectomy being followed by Dr. Rubio in the outpatient setting apparently fell in the driveway. The patient slipped and fell and patient was lying there until the came and EMS was called and the patient was noted to have right hip fracture. Patient admitted for further evaluation and treatment. There is no history of chest pain. No history of palpitation. No history of headache, loss of consciousness or seizures at this time. Patient had history of left lung cancer with radiation. The patient has some wheezing at this time. The chest x-ray showed some scarring of the left upper lobe. There is no history of fever, rigors or chills. PAST MEDICAL HISTORY: History of COPD, dementia, lung cancer left with radiation, hyperlipidemia, memory impairment, adenoidectomy. MEDICATIONS: Medications prior to admission include: 1. Ultram 50 mg t.i.d. p.r.n. 2. Carafate 1 gram a.c., at bedtime, p.r.n. 3. Prilosec 20 mg at breakfast. 4. Iron sulfate 325 mg daily. 5. Vitamin B12, 1000 mcg p.o. daily. 6. Vitamin D3, 1000 daily. 7. Tylenol No. 3 one tablet p.o. q.8 p.r.n. ALLERGIES: Allergies are none. FAMILY HISTORY: History of diabetes mellitus in the family. SOCIAL HISTORY: Previous history of smoking. No history of smoking currently or alcohol. REVIEW OF SYSTEMS: ENT: Diminished hearing and diminished vision. CARDIOVASCULAR SYSTEM: No angina. RESPIRATORY SYSTEM: As mentioned earlier. GI: No nausea. : No dysuria. NERVOUS SYSTEM: No numbness, otherwise mentioned. ALLERGY/IMMUNOLOGY: No history of asthma. MUSCULOSKELETAL: As mentioned earlier. HEMATOLOGY/ONCOLOGY: As mentioned earlier. ENDOCRINE: No history of diabetes or hypothyroidism. CONSTITUTIONAL: As mentioned earlier. DERMATOLOGY: Negative. RHEUMATOLOGY: Negative. PSYCHIATRY: As mentioned earlier. PHYSICAL EXAMINATION: The patient is alert and oriented x3. Pulse 84, blood pressure 184/74, respiration 18, temperature 97.9, pulse ox 96% on room air. HEENT: Conjunctivae normal. Oral mucosa moist. Neck is no jugular venous distention. No carotid bruit. No lymph node enlargement. CARDIOVASCULAR SYSTEM: S1 and S2 muffled. No S3, no S4. RESPIRATORY SYSTEM: Breathing efforts were slightly increased. Bilateral scattered rhonchi and crackles. Expiratory wheezing also present. ABDOMEN: Soft, nontender. No mass palpable. LEGS: Status post right hip fracture. NERVOUS SYSTEM: Higher functions as mentioned. Moves all 4 limbs. No focal motor or sensory deficits. LYMPHATICS: No lymphadenopathy of the neck, axillae or groin. SKIN: No ulcer, rash or bleeding. JOINTS: Mentioned earlier. LABS: WBC 8.8, hemoglobin 9.7. Other labs are noted. Sodium 142, potassium 3.9. Glucose 104. Chest x-ray reviewed personally. EKG showed normal sinus rhythm per baseline. ASSESSMENT: 1. Status post right hip fracture. 2. Chronic obstructive pulmonary disease. 3. Left upper lobe lung cancer, status post radiation. 4. History of dementia. 5. Gastroesophageal reflux disease. 6. Hyperlipidemia. 7. History of colitis. 8. History of peripheral vascular disease. 9. History of carotid artery, history of carotid artery involvement. 10.History of pneumothorax. 11.History of chronic gastritis. 12.History of depression. 13.Remote history of nicotine dependence. 14.FULL CODE. RECOMMENDATIONS AND DISCUSSION: This 81-year-old gentleman presented with multiple medical issues. At this time, I recommend to continue current medication, continue symptomatic treatment. The patient appears to be medically stable. I would recommend optimize bronchodilator treatment and I would clear the patient for surgery. I would also recommend pulmonary evaluation by Dr. Fair/Dr. Catalan. Otherwise, see orders for details. DVT prophylaxis. Incentive spirometry. Further recommendations to follow. A copy of dictation forwarded to Dr. Rubio who is the primary physician. Thank you Dr. Zhang for letting us participate in the care of this patient. Please see orders for further details. MMODL / IJN: [id number] /
[2017-06-07] MEDS: PANTOPRAZOLE 40 MG TABLET PO SCH (09:14)
[2017-06-07] MEDS: HEPARIN SODIUM,PORCINE 5,000 UNIT/ML 1 ML VIAL SQ SCH (09:14)
[2017-06-07] MEDS: CYANOCOBALAMIN 500 MCG TAB PO SCH (09:14)
[2017-06-07] MEDS: amLODIPine 5 MG TAB PO SCH ×2 (09:14→20:02)
--- NOTE | 2017-06-07 09:14 | P.HPOR ---
History of Present Illness H&P Date: 06/07/17 This is an 81-year-old male who was admitted for right hip fracture after a fall on 06/07/2017. Patient states he was walking down concrete steps and slipped falling onto his right hip. Patient was then brought to the emergency room via EMS. Patient states he did not hit his head or lose consciousness. Today patient complains of mild right hip pain with range of motion. Patient denies any neck pain, bilateral upper extremity pain, left lower extremity pain , neck pain, fever/chills, numbness, weakness or tingling. Patient denies any significant past medical history. Review of Systems See HPI. 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-pt denies, history of pneumothorax, hx scarlet fever, chronic gastritis, hx lung cancer with radiation History of Any Multi-Drug Resistant Organisms: None Reported Past Surgical History: Adenoidectomy, Tonsillectomy Additional Past Surgical History / Comment(s): LEFT CAROTID ENDARTERECTOMY Past Anesthesia/Blood Transfusion Reactions: No Reported Reaction Past Psychological History: Depression Additional Psychological History / Comment(s): lives in house with Smoking Status: Former smoker Past Alcohol Use History: None Reported Additional Past Alcohol Use History / Comment(s): quit smoking approx 15 yrs ago , smoked for approx 20 yrs Past Drug Use History: None Reported - Past Family History Father Family Medical History: Diabetes Mellitus Brother(s) Family Medical History: Deep Vein Thrombosis (DVT) Medications and Allergies Home Medications Medication Instructions Recorded Confirmed Type Cholecalciferol [Vitamin D3] 1,000 unit PO DAILY 09/15/16 06/06/17 History Cyanocobalamin (Vitamin B-12) 1,000 mcg PO DAILY 09/15/16 06/06/17 History [Vitamin B-12] Ferrous Sulfate [Feosol] 325 mg PO DAILY 03/09/17 06/06/17 History Omeprazole [PriLOSEC] 20 mg PO AC-BRKFST 03/09/17 06/06/17 History traMADol HCl [Ultram] 50 mg PO TID PRN 03/09/17 06/06/17 History Acetaminophen-Codeine 300-30mg 1 tab PO Q8H PRN 06/06/17 06/06/17 History [Tylenol #3] Sucralfate [Carafate] 1 gm PO ACHS PRN 06/06/17 06/06/17 History Allergies Allergy/AdvReac Type Severity Reaction Status Date / Time No Known Allergies Allergy Verified 06/06/17 18:24 Physical Examination On exam patient is alert and oriented 3 and lying comfortably in bed in no acute distress. There is no deformity of the right lower extremity. There is tenderness to palpation over the right hip. Patient has pain with range of motion of the right lower extremity and with log roll. Calf is soft and nontender. Dorsalis pedis and posterior tibial pulses are 2+.Right lower extremity is warm and well perfused. Exam of the head, neck, bilateral upper extremities, back, and left lower extremity are within normal limits. Results X-rays of the right hip and pelvis show a subcapital fracture of the right femur. - Labs Labs: Abnormal Lab Results - Last 24 Hours (Table) 06/06/17 06/06/17 06/07/17 Range/Units 19:20 19:20 01:40 RBC 2.91 L (4.30-5.90) m/uL Hgb 9.7 L (13.0-17.5) gm/dL Hct 30.6 L (39.0-53.0) % MCV 105.2 H (80.0-100.0) fL RDW 16.6 H (11.5-15.5) % Lymphocytes # 0.7 L (1.0-4.8) k/uL Carbon Dioxide 31 H (22-30) mmol/L BUN 21 H (9-20) mg/dL Glucose 104 H (74-99) mg/dL ALT 20 L (21-72) U/L Ur Leukocyte Esterase Small H (Negative) Urine WBC 7 H (0-5) /hpf Urine Mucus Rare H (None) /hpf H & H 06/06/17 Range/Units 19:20 Hgb 9.7 L (13.0-17.5) gm/dL Hct 30.6 L (39.0-53.0) % Coagulation 06/06/17 Range/Units 19:20 INR 1.0 (<1.2) Result Diagrams: 06/06/17 19:20 06/06/17 19:20 Assessment and Plan (1) Subcapital fracture of femur Current Visit: Yes Status: Acute Code(s): S72.019A - UNSP INTRACAPSULAR FRACTURE OF UNSP FEMUR, INIT FOR CLOS FX SNOMED Code(s): 072771932 Plan: #1. Nonweightbearing to right lower extremity. #2. NPO #3. Right hip hemiarthroplasty scheduled for today, pending medical clearance and consent.
[2017-06-07 09:31] LABS: Anisocytosis Slight; Basophils % (A) 1 %; Eosinophils # (A) 0.1 k/uL (0-0.7); Eosinophils % (A) 1 %; HCT 28.7 % (39.0-53.0); HGB 9.1 gm/dL (13.0-17.5); Hypochromasia Slight; Lymphocytes # (A) 0.6 k/uL (1.0-4.8); Lymphocytes % (A) 9 %; MCH 33.1 pg (25.0-35.0); MCHC 31.7 g/dL (31.0-37.0); MCV 104.5 fL (80.0-100.0); Macrocytosis Moderate; Mean Platelet Volume 7.5; Monocytes # (A) 0.5 k/uL (0-1.0); Monocytes % (A) 7 %; Neutrophils # (A) 5.4 k/uL (1.3-7.7); Neutrophils % (A) 79 %; Platelet Count 216 k/uL (150-450); Poikilocytosis Slight; RBC 2.75 m/uL (4.30-5.90); RDW 16.5 % (11.5-15.5); WBC 6.9 k/uL (3.8-10.6)
[2017-06-07 10:50] LABS: ALT 23 U/L (21-72); AST 25 U/L (17-59); Albumin 3.4 g/dL (3.5-5.0); Alkaline Phosphatase 94 U/L (38-126); Anion Gap 9 mmol/L; Blood Urea Nitrogen 15 mg/dL (9-20); Calcium 9.2 mg/dL (8.4-10.2); Carbon Dioxide 29 mmol/L (22-30); Chloride 103 mmol/L (98-107); Glucose 82 mg/dL (74-99); Sodium 141 mmol/L (137-145); Total Bilirubin 0.6 mg/dL (0.2-1.3); Total Protein 6.6 g/dL (6.3-8.2)
[2017-06-07] MEDS ORDERED: ROPIVACAINE 246.25 MG, EPINEPHrine 0.5 MG, KETOROLAC 30 MG, cloNIDine HCL/PF 80 MCG, WA... MISCELLANE ONE ×5 (10:54)
[2017-06-07] MEDS: cefTRIAXone IN SWFI 1,000 MG/10 ML SYRINGE IVP SCH (11:07)
[2017-06-07] MEDS ORDERED: IV FLUID CONTINUATION 1,000 ML IV ONE ×2 (13:45→16:07)
[2017-06-07] MEDS ORDERED: DEXAMETHASONE SOD PHOS (MDV) 100 MG/10 ML VIAL IV ONE (14:30)
[2017-06-07] MEDS ORDERED: ONDANSETRON 4 MG/2 ML VIAL IVP ONE (14:31)
[2017-06-07] MEDS ORDERED: ONDANSETRON 4 MG/2 ML VIAL ONE (14:33)
[2017-06-07] MEDS ORDERED: ePHEDrine SULFATE/0.9% NACL/PF 50 MG/5 ML SYRINGE IV ONE (14:37)
[2017-06-07] MEDS ORDERED: PHENYLEPHRINE-0.9% NACL SYG 1 MG/10 ML SYRINGE ONE (14:37)
[2017-06-07] MEDS ORDERED: MIDAZOLAM 2 MG/2 ML VIAL ONE (14:37)
[2017-06-07] MEDS ORDERED: fentaNYL (PF) 50 MCG/ML 2 ML AMP ONE (14:37)
[2017-06-07] MEDS ORDERED: ceFAZolin 1,000 MG VIAL ONE (14:37)
[2017-06-07] MEDS ORDERED: PROPOFOL 10 MG/ML 20 ML VIAL IV ONE (14:37)
[2017-06-07] MEDS ORDERED: DIAZEPAM 5 MG TAB PO PRN (14:41)
[2017-06-07] MEDS ORDERED: NALOXONE 0.4 MG/ML 1 ML VIAL IV PRN (14:41)
[2017-06-07] MEDS ORDERED: MAGNESIUM HYDROXIDE 2,400 MG/10 ML CUP PO PRN (14:41)
[2017-06-07] MEDS ORDERED: traMADol 50 MG TAB PO PRN ×2 (14:45)
[2017-06-07] MEDS ORDERED: SODIUM CHLORIDE 0.9% 50 ML with ceFAZolin 2,000 MG IV ONE ×2 (14:50)
[2017-06-07] MEDS ORDERED: ceFAZolin 3,000 MG in SODIUM CHLORIDE 0.9% IRRIGATIO 3,000 ML IRRIGATION ONE (15:21)
--- NOTE | 2017-06-07 15:40 | P.OP ---
Date of Procedure: 06/07/17 Preoperative Diagnosis: Subcapital fracture right hip Postoperative Diagnosis: Subcapital fracture right hip Procedure(s) Performed: Right hip hemiarthroplasty Implants: Zhang and nephew Polarstem size 4 standard Zhang & Nephew tandem unipolar, 50 mm Zhang & Nephew tandem unipolar 12/14 taper sleeve, +4 mm All components were press-fit. Anesthesia: spinal Surgeon: Jorge Zhang Strength And Conditioning Coach #1: Graciela Bustos Estimated Blood Loss (ml): 100 Pathology: other (Femoral head) Condition: stable Disposition: PACU Indications for Procedure: This is an 81-year-old gentleman that sustained a fall at home. He had pain in his right hip and was brought to the emergency room. X-rays demonstrated that subcapital fracture of his right hip. Patient was then admitted to the hospital. After reviewing x-rays and examining the patient, I discussed with the family and the patient the surgical and nonsurgical treatment options. I recommended a right hip hemiarthroplasty and informed consent was obtained. Operative Findings: The operative findings are consistent with a subcapital fracture of the right hip Description of Procedure: Patient was seen and evaluated in the preoperative area, consent was reviewed and the operative site was marked with a skin marker. Patient was then brought to the operating room and given 2 g of Ancef intravenously. A spinal anesthetic was administered by the anesthesia department. Patient was then placed in a lateral decubitus position and held with a Montral hip positioner. The bony prominences were well-padded and an axillary roll was placed. The hip was then prepped and draped in the usual sterile fashion. A universal timeout was then performed which confirmed the patient's name, surgical site, ALLERGIES, and procedure. A standard anterolateral approach the hip was performed. Skin and subcutaneous tissues were sharply incised with an incision centered over the tip of the greater trochanter. The incision was carefully dissected down to the fascia. The fascia was then split in line with skin incision and a Charnley retractor was gently placed. The abductors were then identified, and the anterior one third of the abductors were released off the trochanter and one large sleeve. The fracture hematoma was evacuated and the proximal femur was exposed by externally rotating the femur. The fracture site was readily visualized. Next , using an osteotomy guide, the proximal femur was osteotomized at the appropriate level of the above the lesser trochanter. This bone was then removed. Attention was then turned to the femoral head. Using a corkscrew, the femoral head was removed from the acetabulum without incident. The acetabulum was inspected, and found to have no significant arthrosis. Femoral head was then measured. Attention was then redirected to the femur. Proximal femur was re-exposed and a box osteotome was used to lateralize the proximal femur. A wood handler was then used to locate the femoral canal. Sequential broaching was then performed to the appropriate size. The calcar was then planed and trial head and neck were placed. The hip was then gently reduced. Leg lengths were checked and found to be equal. Hip was then taken through a full range of motion was stable throughout. The hip was then gently dislocated with the aid of a bone hook. The trial head and neck were then removed. The femoral broach was then inspected and found to have a secure fit. The broach was then removed. The hip was then copiously irrigated with antibiotic solution with a pulse lavage. Components were then opened and the femoral stem was then impacted into the proximal femur. The trunnion was cleaned and dried, and the femoral head and neck were then impacted. Hip was again gently reduced. Again leg lengths were checked and found to be equal, and the hip was taken through a full range of motion and found to be stable. The hip was again irrigated with pulsatile lavage, then followed by the Irrrisept solution. The abductors were then repaired through drill holes to the bone to the greater trochanter, utilizing #5 Ethibond suture. Next the fascia was repaired with #2 strata fix suture. The subcutaneous tissue was then repaired with 3-0 Vicryl. The subcuticular tissue was then repaired with 3-0 strata fix suture. Skin was then closed with Dermabond glue. A sterile silver dressing was then applied and the patient was transported to the recovery room in stable condition. Strength And Conditioning Coach MALBE Kennedy was required due to the complexity of surgery the need for skilled surgical supply assistant. She assisted with positioning the patient , draping the patient, retraction during the surgery, and closure of the wound.
[2017-06-07] MEDS ORDERED: SODIUM CHLORIDE 0.9% 1,000 ML IV ONE (15:51)
--- NOTE | 2017-06-07 17:07 | P.CNPUL ---
History of Present Illness Consult date: 06/07/17 Requesting physician: Jorge Zhang Reason for consult: COPD, abnormal CXR/CT, other Chief complaint: Acute subcapital right hip fracture History of present illness: Grayson is a 81-year-old white male patient of Dr. Rubio, with past medical history of severe COPD, squamous cell carcinoma of the lung, status post radiation, hypertension, DJD of lumbar spine, PVD, hyperlipidemia, chronic anemia, clinical monoclonal gammopathy, osteoarthritis, past history of alcoholism, who presented to the emergency department on 06/06/2017 at 1753 after sustaining a fall on the concrete surface that resulted in acute subcapital right hip fracture. Patient did not lose consciousness, did not hit his head, and there was no other evidence of other injuries. Patient immediately felt acute right hip pain, and was unable to bear weight on his right leg. His and his daughter were unable to help him get up, and phoned 911 for assistance. Right hip and pelvis x-ray revealed minimally displaced, non-comminuted right subcapital hip fracture. Chest x-ray did not show any evidence of acute rib fractures. Patient does have moderate amount of discomfort with range of motion of the right hip. Patient does not wear oxygen at baseline, did have 6 doses of high dose radiation treatments in 2016 Dr. Devine from [facility], and PET/CT of the chest following the radiation on 09/15/2015 showed adequate response with a decrease in the size of the left upper lobe mass, and the patient has been doing well since his treatments. As far as the patient's COPD, his underlying FEV1 is 35% of predicted based on the PFT from only 05/27/2015, patient used to be on oxygen, but not currently. Not on any inhalers or nebulized treatments at this time, although in the past was maintained on a combination of Advair, Spiriva and albuterol nebulized treatments. On today's examination, patient is resting comfortably in bed, not in any acute distress, does admit to pain in the right hip with range of motion , denies any acute dyspnea, currently on room air, with O2 sat 97%. Lung sounds are clear to auscultation, no wheezes or rhonchi noted. Orthopedic surgery is planning on right hip hemiarthroplasty this afternoon. Review of Systems All systems: negative Constitutional: Denies chills, Denies fever Eyes: denies blurred vision, denies pain Ears, nose, mouth and throat: Denies headache, Denies sore throat Cardiovascular: Denies chest pain, Denies shortness of breath Respiratory: Denies cough Gastrointestinal: Denies abdominal pain, Denies diarrhea, Denies nausea, Denies vomiting Musculoskeletal: Reports fractures, Reports limitation of motion, Denies myalgias Integumentary: Denies pruritus, Denies rash Neurological: Denies numbness, Denies weakness Psychiatric: Denies anxiety, Denies depression Endocrine: Denies fatigue, Denies weight change 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-pt denies, history of pneumothorax, hx scarlet fever, chronic gastritis, hx lung cancer with radiation History of Any Multi-Drug Resistant Organisms: None Reported Past Surgical History: Adenoidectomy, Tonsillectomy Additional Past Surgical History / Comment(s): LEFT CAROTID ENDARTERECTOMY Past Anesthesia/Blood Transfusion Reactions: No Reported Reaction Past Psychological History: Depression Additional Psychological History / Comment(s): lives in house with Smoking Status: Former smoker Past Alcohol Use History: None Reported Additional Past Alcohol Use History / Comment(s): quit smoking approx 15 yrs ago , smoked for approx 20 yrs Past Drug Use History: None Reported - Past Family History Father Family Medical History: Diabetes Mellitus Brother(s) Family Medical History: Deep Vein Thrombosis (DVT) Medications and Allergies Home Medications Medication Instructions Recorded Confirmed Type Cholecalciferol [Vitamin D3] 1,000 unit PO DAILY 09/15/16 06/06/17 History Cyanocobalamin (Vitamin B-12) 1,000 mcg PO DAILY 09/15/16 06/06/17 History [Vitamin B-12] Ferrous Sulfate [Feosol] 325 mg PO DAILY 03/09/17 06/06/17 History Omeprazole [PriLOSEC] 20 mg PO AC-BRKFST 03/09/17 06/06/17 History traMADol HCl [Ultram] 50 mg PO TID PRN 03/09/17 06/06/17 History Acetaminophen-Codeine 300-30mg 1 tab PO Q8H PRN 06/06/17 06/06/17 History [Tylenol #3] Sucralfate [Carafate] 1 gm PO ACHS PRN 06/06/17 06/06/17 History Allergies Allergy/AdvReac Type Severity Reaction Status Date / Time No Known Allergies Allergy Verified 06/07/17 13:50 Physical Exam Vitals: Vital Signs Temp Pulse Pulse Resp BP BP Pulse Ox 06/07/17 16:31 80 16 132/62 93 L 06/07/17 16:15 81 16 131/63 94 L 06/07/17 16:02 97.4 F L 88 16 114/56 94 L 06/07/17 13:58 98.7 F 85 16 161/70 97 06/07/17 13:07 97.7 F 86 18 124/77 97 06/07/17 08:47 74 06/07/17 08:36 76 06/07/17 07:00 97.6 F 72 16 160/68 96 06/06/17 23:00 97.9 F 91 16 185/84 94 L 06/06/17 19:58 84 18 184/74 96 06/06/17 19:25 97.9 F 74 16 190/114 95 06/06/17 18:03 97.7 F 85 17 193/79 98 Intake and Output 06/07/17 06/07/17 06/07/17 06:59 14:59 22:59 Intake Total 1100 1001 Output Total 600 200 300 Balance -600 900 701 Intake: IV 1100 1001 Output: Urine 600 200 200 Estimated Blood Loss 100 Other: # Voids 1 GENERAL EXAM: Alert, pleasant, 81-year-old white male comfortable in no apparent distress. HEAD: Normocephalic/atraumatic. EYES: Normal reaction of pupils, equal size. Conjunctiva pink, sclera white. NOSE: Clear with pink turbinates. THROAT: No erythema or exudates. NECK: No masses, no JVD, no thyroid enlargement, no adenopathy. CHEST: No chest wall deformity. Symmetrical expansion. LUNGS: Equal air entry with no crackles, wheeze, rhonchi or dullness. CVS: Regular rate and rhythm, normal S1 and S2, no gallops, no murmurs, no rubs ABDOMEN: Soft, nontender. No hepatosplenomegaly, normal bowel sounds, no guarding or rigidity. EXTREMITIES: No clubbing, no edema, no cyanosis, 2+ pulses and upper and lower extremities. There is limitation in the range of motion of the right hip, and tenderness to palpation over right hip joint. Right calf is soft and nontender , right lower extremity is warm. MUSCULOSKELETAL: Muscle strength and tone normal. SPINE: No scoliosis or deformity SKIN: No rashes CENTRAL NERVOUS SYSTEM: Alert and oriented -3. No focal deficits, tone is normal in all 4 extremities. PSYCHIATRIC: Alert and oriented -3. Appropriate affect. Intact judgment and insight. Results - Laboratory Findings CBC and BMP: 06/07/17 08:46 06/07/17 08:46 PT/INR, D-dimer PT 9.7 sec (9.0-12.0) 06/06/17 19:20 INR 1.0 (<1.2) 06/06/17 19:20 Abnormal lab findings: Abnormal Labs 06/06/17 06/06/17 06/07/17 19:20 19:20 01:40 RBC 2.91 L Hgb 9.7 L Hct 30.6 L MCV 105.2 H RDW 16.6 H Lymphocytes # 0.7 L Carbon Dioxide 31 H BUN 21 H Creatinine Glucose 104 H ALT 20 L Albumin Ur Leukocyte Esterase Small H Urine WBC 7 H Urine Mucus Rare H 06/07/17 06/07/17 08:46 08:46 RBC 2.75 L Hgb 9.1 L Hct 28.7 L MCV 104.5 H RDW 16.5 H Lymphocytes # 0.6 L Carbon Dioxide BUN Creatinine 0.64 L Glucose ALT Albumin 3.4 L Ur Leukocyte Esterase Urine WBC Urine Mucus - Diagnostic Findings Chest x-ray: report reviewed Additional studies: Hip/pelvis x-ray reviewed, twelve-lead EKG reviewed Assessment and Plan Plan: Assessment: #1. Acute subcapital fracture of right femur, status post mechanical fall on the concrete surface #2. Chronic macrocytic anemia #3. Severe COPD, with underlying FEV1 of 35% of predicted, Gold stage III #4. History of squamous cell carcinoma of lung, status post radiation therapy, and the subsequent PET/CT of the chest postradiation from 09/15/2015 showed decrease in the size of the left upper lobe mass #5. Hypertension #6. DJD of the lumbar spine #7. Osteoarthritis #8. Peripheral vascular disease #9. Hyperlipidemia #10. History of alcoholism #11. History of carotid artery disease #12. History of diverticular disease #13. Coronary arteriosclerosis #14. History of nicotine dependence, currently in remission Plan: Patient's COPD is stable at this time, patient denies any acute dyspnea, he is on room air, no evidence of wheezing or chest congestion noted. As far as the patient's squamous cell carcinoma of the lung, will be followed up on an outpatient basis. Patient is stable to proceed with right hip hemiarthroplasty from pulmonary standpoint. Postop patient will need incentive spirometry. Continue with Symbicort, DuoNeb nebulized treatments, Rocephin. We'll continue to follow and make necessary adjustments based on her clinical status I performed a history & physical examination of the patient and discussed their management with my nurse practitioner, Jeanette Mccall. I reviewed the nurse practitioner's note and agree with the documented findings and plan of care. Lung sounds are clear. The findings and the impression was discussed with the patient. I attest to the documentation by the nurse practitioner. Time with Patient: Greater than 30
[2017-06-07] MEDS: SODIUM CHLORIDE 0.9% 1,000 ML IV SCH (17:11)
[2017-06-07] MEDS: ceFAZolin IN SWFI 2 GM/20 ML SYRINGE IVP SCH ×2 (17:26→23:02)
[2017-06-07 17:43] LABS: Anisocytosis Slight; Basophils % (A) 0 %; Eosinophils % (A) 0 %; HCT 29.2 % (39.0-53.0); HGB 9.2 gm/dL (13.0-17.5); Hypochromasia Moderate; Lymphocytes # (A) 0.4 k/uL (1.0-4.8); Lymphocytes % (A) 3 %; MCH 33.5 pg (25.0-35.0); MCHC 31.6 g/dL (31.0-37.0); Macrocytosis Moderate; Mean Platelet Volume 7.8; Monocytes # (A) 0.2 k/uL (0-1.0); Monocytes % (A) 2 %; Neutrophils # (A) 11.4 k/uL (1.3-7.7); Neutrophils % (A) 94 %; Platelet Count 230 k/uL (150-450); Poikilocytosis Slight; RBC 2.75 m/uL (4.30-5.90); RDW 16.6 % (11.5-15.5); WBC 12.2 k/uL (3.8-10.6)
--- NOTE | 2017-06-07 18:35 | P.PN ---
Subjective Progress Note Date: 06/07/17 Progress note being dictated for Dr. Griffin Hospital course this is an 81-year-old gentleman admitted with acute right femur fracture, severe COPD and multiple other medical issues. Evaluated by orthopedics and Scheduled for surgery today. Maintained on IV antibiotics of Rocephin, nebulized bronchodilators. Maintaining O2 sats in the high 90s on room air. Denies chest pain, palpitations or shortness of breath. Complains of right hip pain. Objective - Vital Signs Vital signs: Vital Signs Temp 97.6 F 06/07/17 07:00 Pulse 74 06/07/17 08:47 Resp 16 06/07/17 07:00 BP 160/68 06/07/17 07:00 Pulse Ox 96 06/07/17 07:00 Intake & Output 06/06/17 06/07/17 06/07/17 18:59 06:59 18:59 Output Total 1000 Balance -1000 Weight 77.111 kg 77.111 kg Output: Urine 1000 - Exam PHYSICAL EXAM: VITAL SIGNS: As above GENERAL: Sitting up in bed, no acute distress HEENT: Conjunctivae normal. eyes normal. NECK: No JVD. No thyroid enlargement. No LNs CARDIOVASCULAR: S1, S2 muffled. No murmur RESPIRATION: Breath sounds diminished in the bases. No rhonchi or crackles. No wheezing, No bronchial breathing. ABDOMEN: Soft, nontender . No guarding. no masses palpable.Bowel sounds heard. LEGS: Status post right hip fracture PSYCHIATRY: Alert and oriented -3, mood and affect normal. NERVOUS SYSTEM: Cranial N 2-12 grossly normal. Moves all 4 limbs. Diffuse weakness No focal deficits. Skin: no ulcer no rash - Labs CBC & Chem 7: 06/07/17 17:13 06/07/17 08:46 Labs: Abnormal Lab Results - Last 24 Hours (Table) 06/06/17 06/06/17 06/07/17 Range/Units 19:20 19:20 01:40 RBC 2.91 L (4.30-5.90) m/uL Hgb 9.7 L (13.0-17.5) gm/dL Hct 30.6 L (39.0-53.0) % MCV 105.2 H (80.0-100.0) fL RDW 16.6 H (11.5-15.5) % Lymphocytes # 0.7 L (1.0-4.8) k/uL Carbon Dioxide 31 H (22-30) mmol/L BUN 21 H (9-20) mg/dL Glucose 104 H (74-99) mg/dL ALT 20 L (21-72) U/L Ur Leukocyte Esterase Small H (Negative) Urine WBC 7 H (0-5) /hpf Urine Mucus Rare H (None) /hpf 06/07/17 Range/Units 08:46 RBC 2.75 L (4.30-5.90) m/uL Hgb 9.1 L (13.0-17.5) gm/dL Hct 28.7 L (39.0-53.0) % MCV 104.5 H (80.0-100.0) fL RDW 16.5 H (11.5-15.5) % Lymphocytes # 0.6 L (1.0-4.8) k/uL Carbon Dioxide (22-30) mmol/L BUN (9-20) mg/dL Glucose (74-99) mg/dL ALT (21-72) U/L Ur Leukocyte Esterase (Negative) Urine WBC (0-5) /hpf Urine Mucus (None) /hpf Assessment and Plan Assessment: 1. Status post right hip fracture 2. COPD 3. Left upper lobe lung cancer, status post radiation 4. History of dementia 5. Gastroesophageal reflux disease 6. Peripheral vascular disease Plan: Continue on current medication regime ,monitoring and symptomatic treatment. Maintain antibiotics, nebulized bronchodilators. Aggressive pulmonary toileting. Awaiting orthopedic surgery today. Follow closely with pulmonary and orthopedics. The impression and plan of care has been dictated as directed. : I performed a history and examination of this patient, discussed the same with the dictator. I agree with the dictator's note ,documented as a scribe. Any additional findings or plans will be noted.
[2017-06-07] MEDS: SENNOSIDES-DOCUSATE SODIUM 1 EACH TAB PO SCH (20:02)
--- NOTE | 2017-06-07 20:55 | XR ---
PROCEDURE: XR Hip Limited RT - 1V DATE AND TIME: 06/07/2017 8:36 PM REFERRING PHYSICIAN: Graciela Bustos CLINICAL INDICATION: PHH, s/p hemiarthroplasty TECHNIQUE: Department protocol. FINDINGS: Right hip prosthesis appears in anatomic position and alignment. No unexpected postoperative findings. IMPRESSION: Postoperative 1 view
[2017-06-08] MEDS: SODIUM CHLORIDE 0.9% 1,000 ML IV SCH ×2 (06:24→22:53)
[2017-06-08 08:07] LABS: Anisocytosis Slight; Basophils % (A) 0 %; Eosinophils # (A) 0.1 k/uL (0-0.7); Eosinophils % (A) 0 %; HCT 24.4 % (39.0-53.0); HGB 7.8 gm/dL (13.0-17.5); Hypochromasia Moderate; Lymphocytes # (A) 0.4 k/uL (1.0-4.8); Lymphocytes % (A) 4 %; MCH 33.5 pg (25.0-35.0); MCHC 31.9 g/dL (31.0-37.0); Macrocytosis Moderate; Mean Platelet Volume 8.1; Monocytes # (A) 0.8 k/uL (0-1.0); Monocytes % (A) 7 %; Neutrophils # (A) 10.1 k/uL (1.3-7.7); Neutrophils % (A) 87 %; Platelet Count 216 k/uL (150-450); Poikilocytosis Slight; RBC 2.33 m/uL (4.30-5.90); RDW 16.7 % (11.5-15.5); WBC 11.6 k/uL (3.8-10.6)
[2017-06-08] MEDS: amLODIPine 5 MG TAB PO SCH ×2 (08:13→22:31)
[2017-06-08] MEDS: RIVAROXABAN 10 MG TAB PO SCH (08:13)
[2017-06-08] MEDS: CYANOCOBALAMIN 500 MCG TAB PO SCH (08:14)
[2017-06-08] MEDS: PANTOPRAZOLE 40 MG TABLET PO SCH (08:14)
[2017-06-08] MEDS: cefTRIAXone IN SWFI 1,000 MG/10 ML SYRINGE IVP SCH (08:20)
[2017-06-08 08:42] LABS: Anion Gap 10 mmol/L; Blood Urea Nitrogen 20 mg/dL (9-20); Calcium 8.6 mg/dL (8.4-10.2); Carbon Dioxide 27 mmol/L (22-30); Chloride 104 mmol/L (98-107); Glucose 105 mg/dL (74-99); Potassium 4.4 mmol/L (3.5-5.1); Sodium 141 mmol/L (137-145)
[2017-06-08] MEDS: IPRATROPIUM-ALBUTEROL 3 ML NEB INHALATION SCH ×3 (09:20→21:04)
[2017-06-08] MEDS: SYMBICORT 160-4.5 MCG INHALER INHALATION SCH ×2 (09:20→21:04)
--- NOTE | 2017-06-08 12:25 | P.PN ---
Subjective Progress Note Date: 06/08/17 This is an 81 year-old male who is status post right hip hemiarthroplasty. This is postoperative day #1. Patient does have some confusion as he did not remember his surgery yesterday. Patient denies any pain in the right hip. Patient states he has not been up and out of bed yet. Patient denies any new complaints today. Patient denies any fever/chills, numbness, weakness, tingling , abdominal pain, shortness of breath or chest pain. Objective - Vital Signs Vital signs: Vital Signs Temp 96.9 F L 06/08/17 07:00 Pulse 76 06/08/17 12:19 Resp 16 06/08/17 07:00 BP 114/53 06/08/17 07:00 Pulse Ox 93 L 06/08/17 07:00 Intake & Output 06/07/17 06/08/17 06/08/17 18:59 06:59 18:59 Intake Total 2201 500 Output Total 500 800 Balance 1701 -300 Intake: IV 2201 Oral 500 Output: Urine 400 800 Uretheral (Leonardo) 400 Estimated Blood Loss 100 Other: Voiding Method Indwelling Catheter Indwelling Catheter # Voids 1 - Exam Vital signs are stable. Patient is in no acute distress and is alert and oriented 3. Calf is soft and nontender to palpation. Dressing is clean, dry, and intact. Patient has full foot and ankle motion without pain or difficulty. Neurovascular status and circulatory status are intact. - Labs CBC & Chem 7: 06/08/17 07:50 06/08/17 07:50 Labs: Abnormal Lab Results - Last 24 Hours (Table) 06/07/17 06/08/17 06/08/17 Range/Units 17:13 07:50 07:50 WBC 12.2 H 11.6 H (3.8-10.6) k/uL RBC 2.75 L 2.33 L (4.30-5.90) m/uL Hgb 9.2 L 7.8 L (13.0-17.5) gm/dL Hct 29.2 L 24.4 L (39.0-53.0) % MCV 106.0 H 105.0 H (80.0-100.0) fL RDW 16.6 H 16.7 H (11.5-15.5) % Neutrophils # 11.4 H 10.1 H (1.3-7.7) k/uL Lymphocytes # 0.4 L 0.4 L (1.0-4.8) k/uL Glucose 105 H (74-99) mg/dL Assessment and Plan (1) Subcapital fracture of femur Current Visit: Yes Status: Acute Code(s): S72.019A - UNSP INTRACAPSULAR FRACTURE OF UNSP FEMUR, INIT FOR CLOS FX SNOMED Code(s): 314065037 (2) S/P hip hemiarthroplasty Current Visit: Yes Status: Acute Code(s): Z96.649 - PRESENCE OF UNSPECIFIED ARTIFICIAL HIP JOINT SNOMED Code(s): 570309796 Plan: Continue routine postop care. Continue hip precautions with abductor pillow Continue antocoagulation with Xarelto Weightbearing as tolerated with a walker Leave dressing in place for 7-10 days Likely discharge to rehab in the near future.
--- NOTE | 2017-06-08 14:44 | P.PN ---
Subjective Progress Note Date: 06/08/17 Principal diagnosis: Acute subcapital fracture of right femur, status post right hip hemiarthroplasty , postop day 1 Grayson is a 81-year-old white male patient of Dr. Rubio, with past medical history of severe COPD, squamous cell carcinoma of the lung, status post radiation, hypertension, DJD of lumbar spine, PVD, hyperlipidemia, chronic anemia, clinical monoclonal gammopathy, osteoarthritis, past history of alcoholism, who presented to the emergency department on 06/06/2017 at 1753 after sustaining a fall on the concrete surface that resulted in acute subcapital right hip fracture. Patient did not lose consciousness, did not hit his head, and there was no other evidence of other injuries. Patient immediately felt acute right hip pain, and was unable to bear weight on his right leg. His and his daughter were unable to help him get up, and phoned 911 for assistance. Right hip and pelvis x-ray revealed minimally displaced, non-comminuted right subcapital hip fracture. Chest x-ray did not show any evidence of acute rib fractures. Patient does have moderate amount of discomfort with range of motion of the right hip. Patient does not wear oxygen at baseline, did have 6 doses of high dose radiation treatments in 2016 Dr. Devine from [facility], and PET/CT of the chest following the radiation on 09/15/2015 showed adequate response with a decrease in the size of the left upper lobe mass, and the patient has been doing well since his treatments. As far as the patient's COPD, his underlying FEV1 is 35% of predicted based on the PFT from only 05/27/2015, patient used to be on oxygen, but not currently. Not on any inhalers or nebulized treatments at this time, although in the past was maintained on a combination of Advair, Spiriva and albuterol nebulized treatments. On today's examination, patient is resting comfortably in bed, not in any acute distress, does admit to pain in the right hip with range of motion , denies any acute dyspnea, currently on room air, with O2 sat 97%. Lung sounds are clear to auscultation, no wheezes or rhonchi noted. Orthopedic surgery is planning on right hip hemiarthroplasty this afternoon. On 06/08/2017 patient seen in follow-up. He is resting comfortably in bed, denies any acute distress. Denies any dyspnea, remains on room air, with O2 sat 93%. He is afebrile. Hemodynamically stable. Lung sounds are clear to auscultation. No wheezes, no rhonchi, no rales. Patient is compliant with his incentive spirometry, and is able to achieve 1250 on it today. Denies any specific complaints, his pain is controlled. Has not been up out of bed yet. There is abductor pillow in between his legs. From pulmonary standpoint he remains stable, continue encouraging pulmonary toileting, continue nebulized treatments, Symbicort, Rocephin. She has been started on Xarelto for DVT prophylaxis per orthopedic surgery. Objective - Vital Signs Vital signs: Vital Signs Temp 96.9 F L 06/08/17 07:00 Pulse 76 06/08/17 12:19 Resp 16 06/08/17 07:00 BP 114/53 06/08/17 07:00 Pulse Ox 93 L 06/08/17 07:00 Intake & Output 06/07/17 06/08/17 06/08/17 18:59 06:59 18:59 Intake Total 2201 500 Output Total 500 800 Balance 1701 -300 Intake: IV 2201 Oral 500 Output: Urine 400 800 Uretheral (Leonardo) 400 Estimated Blood Loss 100 Other: Voiding Method Indwelling Catheter Indwelling Catheter # Voids 1 # Bowel Movements 1 - Exam GENERAL EXAM: Alert, pleasant, 81-year-old white male comfortable in no apparent distress. HEAD: Normocephalic/atraumatic. EYES: Normal reaction of pupils, equal size. Conjunctiva pink, sclera white. NOSE: Clear with pink turbinates. THROAT: No erythema or exudates. NECK: No masses, no JVD, no thyroid enlargement, no adenopathy. CHEST: No chest wall deformity. Symmetrical expansion. LUNGS: Equal air entry with no crackles, wheeze, rhonchi or dullness. CVS: Regular rate and rhythm, normal S1 and S2, no gallops, no murmurs, no rubs ABDOMEN: Soft, nontender. No hepatosplenomegaly, normal bowel sounds, no guarding or rigidity. EXTREMITIES: No clubbing, no edema, no cyanosis, 2+ pulses and upper and lower extremities. Abductor pillow is place to keep bilateral hips abducted. Right calf is soft and nontender, right lower extremity is warm. MUSCULOSKELETAL: Muscle strength and tone normal. SPINE: No scoliosis or deformity SKIN: No rashes CENTRAL NERVOUS SYSTEM: Alert and oriented -3. No focal deficits, tone is normal in all 4 extremities. PSYCHIATRIC: Alert and oriented -3. Appropriate affect. Intact judgment and insight. - Labs CBC & Chem 7: 06/08/17 07:50 06/08/17 07:50 Labs: Abnormal Lab Results - Last 24 Hours (Table) 06/07/17 06/08/17 06/08/17 Range/Units 17:13 07:50 07:50 WBC 12.2 H 11.6 H (3.8-10.6) k/uL RBC 2.75 L 2.33 L (4.30-5.90) m/uL Hgb 9.2 L 7.8 L (13.0-17.5) gm/dL Hct 29.2 L 24.4 L (39.0-53.0) % MCV 106.0 H 105.0 H (80.0-100.0) fL RDW 16.6 H 16.7 H (11.5-15.5) % Neutrophils # 11.4 H 10.1 H (1.3-7.7) k/uL Lymphocytes # 0.4 L 0.4 L (1.0-4.8) k/uL Glucose 105 H (74-99) mg/dL Assessment and Plan Plan: Assessment: #1. Acute subcapital fracture of right femur, status post mechanical fall on the concrete surface #2. Chronic macrocytic anemia #3. Severe COPD, with underlying FEV1 of 35% of predicted, Gold stage III #4. History of squamous cell carcinoma of lung, status post radiation therapy, and the subsequent PET/CT of the chest postradiation from 09/15/2015 showed decrease in the size of the left upper lobe mass #5. Hypertension #6. DJD of the lumbar spine #7. Osteoarthritis #8. Peripheral vascular disease #9. Hyperlipidemia #10. History of alcoholism #11. History of carotid artery disease #12. History of diverticular disease #13. Coronary arteriosclerosis #14. History of nicotine dependence, currently in remission Plan: Patient denies any dyspnea, vital signs are stable, he remains on room air. Continue encouraging incentive spirometry. Continue with nebulized treatments, Symbicort, Rocephin. Anticoagulation per orthopedic surgery. I performed a history & physical examination of the patient and discussed their management with my nurse practitioner, Jeanette Mccall. I reviewed the nurse practitioner's note and agree with the documented findings and plan of care. Lung sounds are clear. The findings and the impression was discussed with the patient. I attest to the documentation by the nurse practitioner. Time with Patient: Less than 30
[2017-06-08] MEDS: MORPHINE ORAL SOLN 10 MG/5 ML CUP PO PRN ×2 (18:39→22:35)
--- NOTE | 2017-06-08 20:06 | P.PN ---
Subjective Progress Note Date: 06/08/17 Progress note being dictated for Dr. Griffin Hospital course this is an 81-year-old gentleman admitted with acute right femur fracture, severe COPD and multiple other medical issues. Evaluated by orthopedics and Scheduled for surgery today. Maintained on IV antibiotics of Rocephin, nebulized bronchodilators. Maintaining O2 sats in the high 90s on room air. Denies chest pain, palpitations or shortness of breath. Complains of right hip pain. 06/08/2017 status post right hip hemiarthroplasty, postop day #1. Sitting up in chair, incentive spirometer up to 1000, denies pain. Passing flatus, positive bowel movement. Anticoagulated on Xarelto as per orthopedics. Maintained on nebulized bronchodilators, antibiotics, Symbicort, maintaining O2 sats in the low 90s on room air. Denies chest pain, palpitations or increasing shortness of breath. Denies lightheadedness dizziness or focal deficits. Objective - Vital Signs Vital signs: Vital Signs Temp 97.0 F L 06/08/17 15:23 Pulse 89 06/08/17 15:23 Resp 18 06/08/17 16:00 BP 105/43 06/08/17 15:23 Pulse Ox 96 06/08/17 15:23 Intake & Output 06/08/17 06/08/17 06/09/17 06:59 18:59 06:59 Intake Total 500 Output Total 800 200 Balance -300 -200 Intake: Oral 500 Output: Urine 800 200 Uretheral (Leonardo) 400 200 Other: Voiding Method Indwelling Catheter Toilet # Voids 1 # Bowel Movements 1 - Exam PHYSICAL EXAM: VITAL SIGNS: As above GENERAL: Sitting up in chair, no acute distress HEENT: Conjunctivae normal. eyes normal. Oral mucosa moist NECK: No JVD. No thyroid enlargement. No LNs CARDIOVASCULAR: S1, S2 muffled. No murmur RESPIRATION: Breath sounds diminished in the bases. No rhonchi or crackles. No wheezing ABDOMEN: Soft, nontender . No guarding. no masses palpable.Bowel sounds heard. LEGS: Status post right hip hemiarthroplasty PSYCHIATRY: Alert and oriented -3, mood and affect normal. NERVOUS SYSTEM: Cranial N 2-12 grossly normal. Moves all 4 limbs. Diffuse weakness No focal deficits. Skin: no ulcer no rash - Labs CBC & Chem 7: 06/08/17 07:50 06/08/17 07:50 Labs: Abnormal Lab Results - Last 24 Hours (Table) 06/08/17 06/08/17 Range/Units 07:50 07:50 WBC 11.6 H (3.8-10.6) k/uL RBC 2.33 L (4.30-5.90) m/uL Hgb 7.8 L (13.0-17.5) gm/dL Hct 24.4 L (39.0-53.0) % MCV 105.0 H (80.0-100.0) fL RDW 16.7 H (11.5-15.5) % Neutrophils # 10.1 H (1.3-7.7) k/uL Lymphocytes # 0.4 L (1.0-4.8) k/uL Glucose 105 H (74-99) mg/dL Assessment and Plan Assessment: 1. right hip fracture, status post right hip hemiarthroplasty 2. COPD 3. Left upper lobe lung cancer, status post radiation 4. History of dementia 5. Gastroesophageal reflux disease 6. Peripheral vascular disease Plan: Continue on current medication regime ,monitoring and symptomatic treatment. Aggressive pulmonary toileting, incentive spirometer reinforced. Maintain nebulized bronchodilators, antibiotics. Anticoagulated on Xarelto, pain medication as per orthopedics. Maintain antibiotics, nebulized bronchodilators. Aggressive pulmonary toileting. Follow closely with pulmonary and orthopedics. PT/OT. Potential discharge to subacute rehab. At discharge. The impression and plan of care has been dictated as directed. : I performed a history and examination of this patient, discussed the same with the dictator. I agree with the dictator's note ,documented as a scribe. Any additional findings or plans will be noted.
[2017-06-08] MEDS: SENNOSIDES-DOCUSATE SODIUM 1 EACH TAB PO SCH (22:31)
[2017-06-09] MEDS: IPRATROPIUM-ALBUTEROL 3 ML NEB INHALATION SCH ×3 (07:05→20:57)
[2017-06-09] MEDS: SYMBICORT 160-4.5 MCG INHALER INHALATION SCH ×2 (07:05→20:57)
[2017-06-09] MEDS: MORPHINE ORAL SOLN 10 MG/5 ML CUP PO PRN (08:08)
[2017-06-09 09:22] LABS: Calcium 8.5 mg/dL (8.4-10.2); Potassium 4.1 mmol/L (3.5-5.1)
[2017-06-09 09:24] LABS: Appearance,Urine Cloudy (Clear); Bilirubin,Urine Negative (Negative); Blood,Urine Moderate (Negative); Color,Urine Yellow; Glucose,Urine (UA) Negative (Negative); Hyaline Casts,Urine 1 /lpf (0-2); Ketones,Urine Negative (Negative); Leukocyte Esterase,Urine Small (Negative); Mucus,Urine Rare /hpf; Nitrite,Urine Negative (Negative); Protein,Urine 1+ (Negative); RBC,Urine 60 /hpf (0-5); Specific Gravity,Urine 1.018 (1.001-1.035); Squamous Epithelial Cell,Urine <1 /hpf (0-4); Urobilinogen,Urine <2.0 mg/dL (<2.0); WBC,Urine 13 /hpf (0-5)
[2017-06-09] MEDS: RIVAROXABAN 10 MG TAB PO SCH (09:37)
[2017-06-09] MEDS: amLODIPine 5 MG TAB PO SCH ×2 (09:38→20:40)
[2017-06-09] MEDS: PANTOPRAZOLE 40 MG TABLET PO SCH (09:38)
[2017-06-09] MEDS: cefTRIAXone IN SWFI 1,000 MG/10 ML SYRINGE IVP SCH (09:38)
[2017-06-09] MEDS: CYANOCOBALAMIN 500 MCG TAB PO SCH (09:38)
[2017-06-09 10:05] LABS: Anisocytosis Slight; Basophils % (A) 0 %; Eosinophils # (A) 0.1 k/uL (0-0.7); Eosinophils % (A) 1 %; HCT 24.1 % (39.0-53.0); HGB 7.5 gm/dL (13.0-17.5); Hypochromasia Moderate; Lymphocytes # (A) 0.6 k/uL (1.0-4.8); Lymphocytes % (A) 7 %; MCH 33.5 pg (25.0-35.0); MCHC 31.1 g/dL (31.0-37.0); MCV 107.9 fL (80.0-100.0); Macrocytosis Marked; Mean Platelet Volume 8.8; Monocytes # (A) 0.6 k/uL (0-1.0); Monocytes % (A) 6 %; Neutrophils # (A) 8.3 k/uL (1.3-7.7); Neutrophils % (A) 84 %; Platelet Count 190 k/uL (150-450); RBC 2.24 m/uL (4.30-5.90); RDW 17.1 % (11.5-15.5); WBC 9.8 k/uL (3.8-10.6)
[2017-06-09 11:13] LABS: Large Platelets Present
--- NOTE | 2017-06-09 14:03 | P.PN ---
Subjective Progress Note Date: 06/09/17 Principal diagnosis: Acute subcapital fracture of right femur, status post right hip hemiarthroplasty , postop day 1 Grayson is a 81-year-old white male patient of Dr. Rubio, with past medical history of severe COPD, squamous cell carcinoma of the lung, status post radiation, hypertension, DJD of lumbar spine, PVD, hyperlipidemia, chronic anemia, clinical monoclonal gammopathy, osteoarthritis, past history of alcoholism, who presented to the emergency department on 06/06/2017 at 1753 after sustaining a fall on the concrete surface that resulted in acute subcapital right hip fracture. Patient did not lose consciousness, did not hit his head, and there was no other evidence of other injuries. Patient immediately felt acute right hip pain, and was unable to bear weight on his right leg. His and his daughter were unable to help him get up, and phoned 911 for assistance. Right hip and pelvis x-ray revealed minimally displaced, non-comminuted right subcapital hip fracture. Chest x-ray did not show any evidence of acute rib fractures. Patient does have moderate amount of discomfort with range of motion of the right hip. Patient does not wear oxygen at baseline, did have 6 doses of high dose radiation treatments in 2016 Dr. Devine from [facility], and PET/CT of the chest following the radiation on 09/15/2015 showed adequate response with a decrease in the size of the left upper lobe mass, and the patient has been doing well since his treatments. As far as the patient's COPD, his underlying FEV1 is 35% of predicted based on the PFT from only 05/27/2015, patient used to be on oxygen, but not currently. Not on any inhalers or nebulized treatments at this time, although in the past was maintained on a combination of Advair, Spiriva and albuterol nebulized treatments. On today's examination, patient is resting comfortably in bed, not in any acute distress, does admit to pain in the right hip with range of motion , denies any acute dyspnea, currently on room air, with O2 sat 97%. Lung sounds are clear to auscultation, no wheezes or rhonchi noted. Orthopedic surgery is planning on right hip hemiarthroplasty this afternoon. On 06/08/2017 patient seen in follow-up. He is resting comfortably in bed, denies any acute distress. Denies any dyspnea, remains on room air, with O2 sat 93%. He is afebrile. Hemodynamically stable. Lung sounds are clear to auscultation. No wheezes, no rhonchi, no rales. Patient is compliant with his incentive spirometry, and is able to achieve 1250 on it today. Denies any specific complaints, his pain is controlled. Has not been up out of bed yet. There is abductor pillow in between his legs. From pulmonary standpoint he remains stable, continue encouraging pulmonary toileting, continue nebulized treatments, Symbicort, Rocephin. She has been started on Xarelto for DVT prophylaxis per orthopedic surgery. On 06/09/2017 patient seen in follow-up on medical surgical floor. He is resting comfortably in bed, denies any acute distress. He was up out of bed with physical therapy, and a walker. He states he tolerated it well. Denies any dyspnea, denies any acute distress. His right hip pain is controlled. He is on room air, with O2 sat at 93%. Afebrile, hemodynamically stable. Lung sounds are clear to auscultation, right hip surgical incision is covered with a surgical dressing. No shadowing noted. Patient continues on Xarelto per orthopedic surgery. Pedal pulses are 1+, extremities are warm, calves are soft and nontender. Today's lab work shows that of ECF 9.8, hemoglobin is 7.5. Electrolytes are within normal limits, BUN is 25, creatinine is 0.98. Patient reports a fair appetite. Objective - Vital Signs Vital signs: Vital Signs Temp 98.6 F 06/09/17 07:00 Pulse 88 06/09/17 13:46 Resp 16 06/09/17 13:46 BP 109/48 06/09/17 07:00 Pulse Ox 93 L 06/09/17 07:00 Intake & Output 06/08/17 06/09/17 06/09/17 18:59 06:59 18:59 Intake Total 300 Output Total 200 Balance -200 300 Intake: Oral 300 Output: Urine 200 Uretheral (Leonardo) 200 Other: Voiding Method Toilet Toilet Toilet # Voids 1 0 # Bowel Movements 1 - Exam GENERAL EXAM: Alert, pleasant, 81-year-old white male comfortable in no apparent distress. HEAD: Normocephalic/atraumatic. EYES: Normal reaction of pupils, equal size. Conjunctiva pink, sclera white. NOSE: Clear with pink turbinates. THROAT: No erythema or exudates. NECK: No masses, no JVD, no thyroid enlargement, no adenopathy. CHEST: No chest wall deformity. Symmetrical expansion. LUNGS: Equal air entry with no crackles, wheeze, rhonchi or dullness. CVS: Regular rate and rhythm, normal S1 and S2, no gallops, no murmurs, no rubs ABDOMEN: Soft, nontender. No hepatosplenomegaly, normal bowel sounds, no guarding or rigidity. EXTREMITIES: No clubbing, no edema, no cyanosis, 2+ pulses and upper and lower extremities. Right calf is soft and nontender, right lower extremity is warm. MUSCULOSKELETAL: Muscle strength and tone normal. SPINE: No scoliosis or deformity SKIN: No rashes CENTRAL NERVOUS SYSTEM: Alert and oriented -3. No focal deficits, tone is normal in all 4 extremities. PSYCHIATRIC: Alert and oriented -3. Appropriate affect. Intact judgment and insight. - Labs CBC & Chem 7: 06/09/17 08:12 06/09/17 08:12 Labs: Abnormal Lab Results - Last 24 Hours (Table) 06/09/17 06/09/17 06/09/17 Range/Units 08:05 08:12 08:12 RBC 2.24 L (4.30-5.90) m/uL Hgb 7.5 L (13.0-17.5) gm/dL Hct 24.1 L (39.0-53.0) % MCV 107.9 H (80.0-100.0) fL RDW 17.1 H (11.5-15.5) % Neutrophils # 8.3 H (1.3-7.7) k/uL Lymphocytes # 0.6 L (1.0-4.8) k/uL BUN 25 H (9-20) mg/dL Urine Protein 1+ H (Negative) Urine Blood Moderate H (Negative) Ur Leukocyte Esterase Small H (Negative) Urine RBC 60 H (0-5) /hpf Urine WBC 13 H (0-5) /hpf Urine Mucus Rare H (None) /hpf Microbiology - Last 24 Hours (Table) 06/09/17 08:05 Urine Culture - Preliminary Urine,Catheterized Assessment and Plan Plan: Assessment: #1. Acute subcapital fracture of right femur, post mechanical fall on the concrete surface, status post right hip hemiarthroplasty, postop day 2 #2. Chronic macrocytic anemia #3. Severe COPD, with underlying FEV1 of 35% of predicted, Gold stage III #4. History of squamous cell carcinoma of lung, status post radiation therapy, and the subsequent PET/CT of the chest postradiation from 09/15/2015 showed decrease in the size of the left upper lobe mass #5. Hypertension #6. DJD of the lumbar spine #7. Osteoarthritis #8. Peripheral vascular disease #9. Hyperlipidemia #10. History of alcoholism #11. History of carotid artery disease #12. History of diverticular disease #13. Coronary arteriosclerosis #14. History of nicotine dependence, currently in remission Plan: Continue current plan of care, continue increasing activity per orthopedic surgery and PT/OT recommendations. Continue DuoNeb, Symbicort, pain control. From pulmonary standpoint patient remains stable, and can be transferred to the subacute rehab once cleared by the orthopedic surgery I performed a history & physical examination of the patient and discussed their management with my nurse practitioner, Jeanette Mccall. I reviewed the nurse practitioner's note and agree with the documented findings and plan of care. Lung sounds are clear. The findings and the impression was discussed with the patient. I attest to the documentation by the nurse practitioner. Time with Patient: Less than 30
[2017-06-09] MEDS: SODIUM CHLORIDE 0.9% 1,000 ML IV SCH (14:15)
--- NOTE | 2017-06-09 14:38 | P.PN ---
Subjective Progress Note Date: 06/09/17 This is an 81 year-old male who is status post right hip hemiarthroplasty. This is postoperative day #2. Patient does complain of pain in the right hip today. According to nursing, the patient has been out of bed and into a chair. Patient denies any new complaints today. Patient denies any fever/chills, numbness, weakness, tingling, abdominal pain, shortness of breath or chest pain. Objective - Vital Signs Vital signs: Vital Signs Temp 98.6 F 06/09/17 07:00 Pulse 88 06/09/17 13:46 Resp 16 06/09/17 13:46 BP 109/48 06/09/17 07:00 Pulse Ox 93 L 06/09/17 07:00 Intake & Output 06/08/17 06/09/17 06/09/17 18:59 06:59 18:59 Intake Total 300 520 Output Total 200 Balance -200 300 520 Intake: Intake, IV Titration 520 Amount Sodium Chloride 0.9% 1, 520 000 ml @ 65 mls/hr IV . [id number] [facility] Rx#:[id number] Oral 300 Output: Urine 200 Uretheral (Leonardo) 200 Other: Voiding Method Toilet Toilet Toilet # Voids 1 0 # Bowel Movements 1 - Exam Vital signs are stable. Patient is in no acute distress and is alert and oriented 3. Calf is soft and nontender to palpation. Dressing is clean, dry, and intact. Patient has full foot and ankle motion without pain or difficulty. Neurovascular status and circulatory status are intact. - Labs CBC & Chem 7: 06/09/17 08:12 06/09/17 08:12 Labs: Abnormal Lab Results - Last 24 Hours (Table) 06/09/17 06/09/17 06/09/17 Range/Units 08:05 08:12 08:12 RBC 2.24 L (4.30-5.90) m/uL Hgb 7.5 L (13.0-17.5) gm/dL Hct 24.1 L (39.0-53.0) % MCV 107.9 H (80.0-100.0) fL RDW 17.1 H (11.5-15.5) % Neutrophils # 8.3 H (1.3-7.7) k/uL Lymphocytes # 0.6 L (1.0-4.8) k/uL BUN 25 H (9-20) mg/dL Urine Protein 1+ H (Negative) Urine Blood Moderate H (Negative) Ur Leukocyte Esterase Small H (Negative) Urine RBC 60 H (0-5) /hpf Urine WBC 13 H (0-5) /hpf Urine Mucus Rare H (None) /hpf Microbiology - Last 24 Hours (Table) 06/09/17 08:05 Urine Culture - Preliminary Urine,Catheterized Assessment and Plan (1) Subcapital fracture of femur Current Visit: Yes Status: Acute Code(s): S72.019A - UNSP INTRACAPSULAR FRACTURE OF UNSP FEMUR, INIT FOR CLOS FX SNOMED Code(s): 817708169 (2) S/P hip hemiarthroplasty Current Visit: Yes Status: Acute Code(s): Z96.649 - PRESENCE OF UNSPECIFIED ARTIFICIAL HIP JOINT SNOMED Code(s): 962547208 Plan: Continue routine postop care. Continue hip precautions with abductor pillow Continue antocoagulation with Xarelto Weightbearing as tolerated with a walker Leave dressing in place for 7-10 days Discharge to rehab when cleared medically.
[2017-06-09 16:19] LABS: Anisocytosis Slight; Basophils % (A) 0 %; Eosinophils % (A) 1 %; HCT 22.9 % (39.0-53.0); Hypochromasia Marked; Lymphocytes # (A) 0.5 k/uL (1.0-4.8); Lymphocytes % (A) 6 %; MCHC 30.5 g/dL (31.0-37.0); MCV 108.2 fL (80.0-100.0); Macrocytosis Marked; Mean Platelet Volume 8.5; Monocytes # (A) 0.7 k/uL (0-1.0); Monocytes % (A) 8 %; Neutrophils # (A) 7.9 k/uL (1.3-7.7); Neutrophils % (A) 83 %; Platelet Count 187 k/uL (150-450); RBC 2.12 m/uL (4.30-5.90); RDW 16.9 % (11.5-15.5); WBC 9.5 k/uL (3.8-10.6)
[2017-06-09] MEDS ORDERED: FUROSEMIDE 10 MG/ML 2 ML VIAL IV ONE (16:37)
[2017-06-09] MEDS ORDERED: FUROSEMIDE 10 MG/ML 2 ML VIAL IV PRN (16:50)
[2017-06-09 17:20] LABS: Large Platelets Present
--- NOTE | 2017-06-09 19:36 | P.PN ---
Subjective Progress Note Date: 06/09/17 Progress note being dictated for Dr. Griffin Hospital course this is an 81-year-old gentleman admitted with acute right femur fracture, severe COPD and multiple other medical issues. Evaluated by orthopedics and Scheduled for surgery today. Maintained on IV antibiotics of Rocephin, nebulized bronchodilators. Maintaining O2 sats in the high 90s on room air. Denies chest pain, palpitations or shortness of breath. Complains of right hip pain. 06/08/2017 status post right hip hemiarthroplasty, postop day #1. Sitting up in chair, incentive spirometer up to 1000, denies pain. Passing flatus, positive bowel movement. Anticoagulated on Xarelto as per orthopedics. Maintained on nebulized bronchodilators, antibiotics, Symbicort, maintaining O2 sats in the low 90s on room air. Denies chest pain, palpitations or increasing shortness of breath. Denies lightheadedness dizziness or focal deficits. 06/09/2017 postop day #2. Continues to do well, participating with physical therapy, ambulating with walker. Improving diet intake, no nausea or vomiting. Passing flatus, no bowel movement. Anticoagulated on Xarelto as per orthopedics. Pain controlled. Hemoglobin 7.5. Required Straight cath today, recently voided with postvoid residual pending. Urine culture pending. Denies chest pain, palpitations or increasing shortness of breath. Objective - Vital Signs Vital signs: Vital Signs Temp 98.7 F 06/09/17 18:27 Pulse 100 06/09/17 18:27 Resp 12 06/09/17 18:27 BP 116/53 06/09/17 18:27 Pulse Ox 96 06/09/17 15:00 Intake & Output 06/08/17 06/09/17 06/09/17 18:59 06:59 18:59 Intake Total 300 520 Output Total 200 Balance -200 300 520 Intake: Intake, IV Titration 520 Amount Sodium Chloride 0.9% 1, 520 000 ml @ 65 mls/hr IV . [id number] [facility] Rx#:[id number] Oral 300 Blood Product 0 Rc As-1 Unit 0 [id number] Output: Urine 200 Uretheral (Leonardo) 200 Other: Voiding Method Toilet Toilet Toilet # Voids 1 0 # Bowel Movements 1 - Exam PHYSICAL EXAM: VITAL SIGNS: As above GENERAL: Sitting up in bed, no acute distress HEENT: Conjunctivae normal. eyes normal. Oral mucosa moist NECK: No JVD. No thyroid enlargement. No LNs CARDIOVASCULAR: S1, S2 muffled. No murmur RESPIRATION: Breath sounds diminished in the bases. No rhonchi or crackles. No wheezing ABDOMEN: Soft, nontender . No guarding. no masses palpable.Bowel sounds heard. LEGS: Status post right hip hemiarthroplasty, dressing clean dry and intact PSYCHIATRY: Alert and oriented -3, mood and affect normal. NERVOUS SYSTEM: Cranial N 2-12 grossly normal. Moves all 4 limbs. Diffuse weakness No focal deficits. Skin: no ulcer no rash - Labs CBC & Chem 7: 06/09/17 15:37 06/09/17 08:12 Labs: Abnormal Lab Results - Last 24 Hours (Table) 06/07/17 06/09/17 06/09/17 Range/Units 08:46 08:05 08:12 RBC 2.24 L (4.30-5.90) m/uL Hgb 7.5 L (13.0-17.5) gm/dL Hct 24.1 L (39.0-53.0) % MCV 107.9 H (80.0-100.0) fL MCHC (31.0-37.0) g/dL RDW 17.1 H (11.5-15.5) % Neutrophils # 8.3 H (1.3-7.7) k/uL Lymphocytes # 0.6 L (1.0-4.8) k/uL BUN (9-20) mg/dL Urine Protein 1+ H (Negative) Urine Blood Moderate H (Negative) Ur Leukocyte Esterase Small H (Negative) Urine RBC 60 H (0-5) /hpf Urine WBC 13 H (0-5) /hpf Urine Mucus Rare H (None) /hpf Crossmatch See Detail 06/09/17 06/09/17 Range/Units 08:12 15:37 RBC 2.12 L (4.30-5.90) m/uL Hgb 7.0 L* (13.0-17.5) gm/dL Hct 22.9 L (39.0-53.0) % MCV 108.2 H (80.0-100.0) fL MCHC 30.5 L (31.0-37.0) g/dL RDW 16.9 H (11.5-15.5) % Neutrophils # 7.9 H (1.3-7.7) k/uL Lymphocytes # 0.5 L (1.0-4.8) k/uL BUN 25 H (9-20) mg/dL Urine Protein (Negative) Urine Blood (Negative) Ur Leukocyte Esterase (Negative) Urine RBC (0-5) /hpf Urine WBC (0-5) /hpf Urine Mucus (None) /hpf Crossmatch Microbiology - Last 24 Hours (Table) 06/09/17 08:05 Urine Culture - Preliminary Urine,Catheterized Assessment and Plan Assessment: 1. right hip fracture, status post right hip hemiarthroplasty 2. COPD 3. Left upper lobe lung cancer, status post radiation 4. History of dementia 5. Gastroesophageal reflux disease 6. Peripheral vascular disease Plan: Continue on current medication regime ,monitoring and symptomatic treatment. Bladder scan for Postvoid residuals. Hemoglobin trending down, repeat hemoglobin this afternoon .Aggressive pulmonary toileting, incentive spirometer reinforced. Maintain nebulized bronchodilators, antibiotics. Anticoagulated ,pain medication as per orthopedics. PT/OT. Discharge planning in progress for subacute rehab soon-recheck hemoglobin pending. The impression and plan of care has been dictated as directed. : I performed a history and examination of this patient, discussed the same with the dictator. I agree with the dictator's note ,documented as a scribe. Any additional findings or plans will be noted.
[2017-06-09] MEDS: SENNOSIDES-DOCUSATE SODIUM 1 EACH TAB PO SCH (20:38)
[2017-06-10] MEDS: SODIUM CHLORIDE 0.9% 1,000 ML IV SCH (06:12)
[2017-06-10] MEDS: SYMBICORT 160-4.5 MCG INHALER INHALATION SCH (07:09)
[2017-06-10] MEDS: IPRATROPIUM-ALBUTEROL 3 ML NEB INHALATION SCH ×2 (07:09→16:01)
[2017-06-10 07:26] VITALS: RESP 16
[2017-06-10] MEDS: amLODIPine 5 MG TAB PO SCH (08:22)
[2017-06-10] MEDS: RIVAROXABAN 10 MG TAB PO SCH (08:22)
[2017-06-10] MEDS: cefTRIAXone IN SWFI 1,000 MG/10 ML SYRINGE IVP SCH (08:22)
[2017-06-10] MEDS: PANTOPRAZOLE 40 MG TABLET PO SCH (08:22)
[2017-06-10] MEDS: CYANOCOBALAMIN 500 MCG TAB PO SCH (08:22)
--- NOTE | 2017-06-10 08:30 | P.PN ---
Subjective Progress Note Date: 06/10/17 This is an 81 year-old male who is status post right hip hemiarthroplasty. This is postoperative day #3. Patient states he is doing well and denies any significant pain in the right hip. Nursing states the patient has been out of bed and into a chair and working with physical therapy. Patient's hemoglobin is trending down and is being monitored. Patient denies any dizziness. Patient denies any new complaints today. Patient denies any fever/chills, numbness, weakness, tingling, abdominal pain, shortness of breath or chest pain. Objective - Vital Signs Vital signs: Vital Signs Temp 97.5 F L 06/10/17 07:33 Pulse 89 06/10/17 07:33 Resp 16 06/10/17 07:33 BP 120/61 06/10/17 07:33 Pulse Ox 95 06/10/17 07:00 Intake & Output 06/09/17 06/10/17 06/10/17 18:59 06:59 18:59 Intake Total 520 310 Output Total 950 Balance 520 -640 Intake: Intake, IV Titration 520 Amount Sodium Chloride 0.9% 1, 520 000 ml @ 65 mls/hr IV . [id number] [facility] Rx#:[id number] Blood Product 0 310 Rc As-1 Unit 0 310 [id number] Rc Cpda-1 Unit 0 [id number] Output: Urine 950 Other: Voiding Method Toilet Urinal - Exam Vital signs are stable. Patient is in no acute distress and is alert and oriented 3. Calf is soft and nontender to palpation. Dressing is clean, dry, and intact. Patient has full foot and ankle motion without pain or difficulty. Neurovascular status and circulatory status are intact. - Labs CBC & Chem 7: 06/09/17 15:37 06/09/17 08:12 Labs: Abnormal Lab Results - Last 24 Hours (Table) 06/07/17 06/09/17 06/09/17 Range/Units 08:46 08:05 08:12 RBC 2.24 L (4.30-5.90) m/uL Hgb 7.5 L (13.0-17.5) gm/dL Hct 24.1 L (39.0-53.0) % MCV 107.9 H (80.0-100.0) fL MCHC (31.0-37.0) g/dL RDW 17.1 H (11.5-15.5) % Neutrophils # 8.3 H (1.3-7.7) k/uL Lymphocytes # 0.6 L (1.0-4.8) k/uL BUN (9-20) mg/dL Urine Protein 1+ H (Negative) Urine Blood Moderate H (Negative) Ur Leukocyte Esterase Small H (Negative) Urine RBC 60 H (0-5) /hpf Urine WBC 13 H (0-5) /hpf Urine Mucus Rare H (None) /hpf Crossmatch See Detail 06/09/17 06/09/17 Range/Units 08:12 15:37 RBC 2.12 L (4.30-5.90) m/uL Hgb 7.0 L* (13.0-17.5) gm/dL Hct 22.9 L (39.0-53.0) % MCV 108.2 H (80.0-100.0) fL MCHC 30.5 L (31.0-37.0) g/dL RDW 16.9 H (11.5-15.5) % Neutrophils # 7.9 H (1.3-7.7) k/uL Lymphocytes # 0.5 L (1.0-4.8) k/uL BUN 25 H (9-20) mg/dL Urine Protein (Negative) Urine Blood (Negative) Ur Leukocyte Esterase (Negative) Urine RBC (0-5) /hpf Urine WBC (0-5) /hpf Urine Mucus (None) /hpf Crossmatch Microbiology - Last 24 Hours (Table) 06/09/17 08:05 Urine Culture - Preliminary Urine,Catheterized Assessment and Plan (1) Subcapital fracture of femur Current Visit: Yes Status: Acute Code(s): S72.019A - UNSP INTRACAPSULAR FRACTURE OF UNSP FEMUR, INIT FOR CLOS FX SNOMED Code(s): 963292715 (2) S/P hip hemiarthroplasty Current Visit: Yes Status: Acute Code(s): Z96.649 - PRESENCE OF UNSPECIFIED ARTIFICIAL HIP JOINT SNOMED Code(s): 409561975 Plan: Continue routine postop care. Continue hip precautions with abductor pillow Continue antocoagulation with Xarelto Weightbearing as tolerated with a walker Leave dressing in place for 10-14 days Hgb: 7. Appreciate input from medicine. Discharge to rehab when cleared medically.
[2017-06-10 08:47] LABS: Anion Gap 7 mmol/L; Blood Urea Nitrogen 27 mg/dL (9-20); Calcium 8.4 mg/dL (8.4-10.2); Carbon Dioxide 29 mmol/L (22-30); Chloride 103 mmol/L (98-107); Glucose 90 mg/dL (74-99); Potassium 3.9 mmol/L (3.5-5.1); Sodium 139 mmol/L (137-145)
[2017-06-10 09:08] LABS: Anisocytosis Slight; Basophils % (A) 0 %; Eosinophils % (A) 0 %; HCT 26.4 % (39.0-53.0); Hypochromasia Slight; Lymphocytes # (A) 0.7 k/uL (1.0-4.8); Lymphocytes % (A) 7 %; MCHC 32.7 g/dL (31.0-37.0); Macrocytosis Slight; Mean Platelet Volume 8.4; Monocytes # (A) 0.6 k/uL (0-1.0); Monocytes % (A) 6 %; Neutrophils # (A) 8.5 k/uL (1.3-7.7); Neutrophils % (A) 84 %; Platelet Count 165 k/uL (150-450); Poikilocytosis Slight; RDW 19.9 % (11.5-15.5); WBC 10.2 k/uL (3.8-10.6)
[2017-06-10 09:14] LABS: HGB 8.6 gm/dL (13.0-17.5)
--- NOTE | 2017-06-10 10:51 | P.PN ---
Subjective Progress Note Date: 06/10/17 Principal diagnosis: Acute subcapital fracture of right femur, status post right hip hemiarthroplasty , postop day 1 Grayson is a 81-year-old white male patient of Dr. Rubio, with past medical history of severe COPD, squamous cell carcinoma of the lung, status post radiation, hypertension, DJD of lumbar spine, PVD, hyperlipidemia, chronic anemia, clinical monoclonal gammopathy, osteoarthritis, past history of alcoholism, who presented to the emergency department on 06/06/2017 at 1753 after sustaining a fall on the concrete surface that resulted in acute subcapital right hip fracture. Patient did not lose consciousness, did not hit his head, and there was no other evidence of other injuries. Patient immediately felt acute right hip pain, and was unable to bear weight on his right leg. His and his daughter were unable to help him get up, and phoned 911 for assistance. Right hip and pelvis x-ray revealed minimally displaced, non-comminuted right subcapital hip fracture. Chest x-ray did not show any evidence of acute rib fractures. Patient does have moderate amount of discomfort with range of motion of the right hip. Patient does not wear oxygen at baseline, did have 6 doses of high dose radiation treatments in 2016 Dr. Devine from [facility], and PET/CT of the chest following the radiation on 09/15/2015 showed adequate response with a decrease in the size of the left upper lobe mass, and the patient has been doing well since his treatments. As far as the patient's COPD, his underlying FEV1 is 35% of predicted based on the PFT from only 05/27/2015, patient used to be on oxygen, but not currently. Not on any inhalers or nebulized treatments at this time, although in the past was maintained on a combination of Advair, Spiriva and albuterol nebulized treatments. On today's examination, patient is resting comfortably in bed, not in any acute distress, does admit to pain in the right hip with range of motion , denies any acute dyspnea, currently on room air, with O2 sat 97%. Lung sounds are clear to auscultation, no wheezes or rhonchi noted. Orthopedic surgery is planning on right hip hemiarthroplasty this afternoon. On 06/08/2017 patient seen in follow-up. He is resting comfortably in bed, denies any acute distress. Denies any dyspnea, remains on room air, with O2 sat 93%. He is afebrile. Hemodynamically stable. Lung sounds are clear to auscultation. No wheezes, no rhonchi, no rales. Patient is compliant with his incentive spirometry, and is able to achieve 1250 on it today. Denies any specific complaints, his pain is controlled. Has not been up out of bed yet. There is abductor pillow in between his legs. From pulmonary standpoint he remains stable, continue encouraging pulmonary toileting, continue nebulized treatments, Symbicort, Rocephin. She has been started on Xarelto for DVT prophylaxis per orthopedic surgery. On 06/09/2017 patient seen in follow-up on medical surgical floor. He is resting comfortably in bed, denies any acute distress. He was up out of bed with physical therapy, and a walker. He states he tolerated it well. Denies any dyspnea, denies any acute distress. His right hip pain is controlled. He is on room air, with O2 sat at 93%. Afebrile, hemodynamically stable. Lung sounds are clear to auscultation, right hip surgical incision is covered with a surgical dressing. No shadowing noted. Patient continues on Xarelto per orthopedic surgery. Pedal pulses are 1+, extremities are warm, calves are soft and nontender. Today's lab work shows that of ECF 9.8, hemoglobin is 7.5. Electrolytes are within normal limits, BUN is 25, creatinine is 0.98. Patient reports a fair appetite. On 06/10/2017 patient seen in follow-up on medical surgical floor. He denies any right hip pain, is complaining of some tenderness over the tailbone area. Patient is incontinent of urine at times, tailbone area was inspected for signs of breakdown, no skin breakdown noted, no redness. Nursing staff was alerted to keep the patient clean and dry, and repositioned. From pulmonary standpoint patient denies any dyspnea, denies any chest pain, chest congestion or coughing. He remains on room air, he needs encouragement with incentive spirometry. He has been up out of bed in the chair, and working with physical therapy. Lung sounds are clear to auscultation. Yesterday patient received 2 units of packed red blood cells for hemoglobin of 7.0, his hemoglobin today is 8.6. Patient remains hemodynamically stable, denies any dizziness, denies any chest pain, or dyspnea. Electrolyte profile is within normal limits, B1 is 27, creatinine 0.85. Discharge planning is in progress for placement to the [facility] nursing and rehab possibly today. Objective - Vital Signs Vital signs: Vital Signs Temp 97.5 F L 06/10/17 07:33 Pulse 89 06/10/17 07:33 Resp 16 06/10/17 07:33 BP 120/61 06/10/17 07:33 Pulse Ox 95 06/10/17 07:00 Intake & Output 06/09/17 06/10/17 06/10/17 18:59 06:59 18:59 Intake Total 520 310 Output Total 950 Balance 520 -640 Intake: Intake, IV Titration 520 Amount Sodium Chloride 0.9% 1, 520 000 ml @ 65 mls/hr IV . [id number] [facility] Rx#:[id number] Blood Product 0 310 Rc As-1 Unit 0 310 [id number] Rc Cpda-1 Unit 0 [id number] Output: Urine 950 Other: Voiding Method Toilet Urinal - Exam GENERAL EXAM: Alert, pleasant, 81-year-old white male comfortable in no apparent distress. HEAD: Normocephalic/atraumatic. EYES: Normal reaction of pupils, equal size. Conjunctiva pink, sclera white. NOSE: Clear with pink turbinates. THROAT: No erythema or exudates. NECK: No masses, no JVD, no thyroid enlargement, no adenopathy. CHEST: No chest wall deformity. Symmetrical expansion. LUNGS: Equal air entry with no crackles, wheeze, rhonchi or dullness. CVS: Regular rate and rhythm, normal S1 and S2, no gallops, no murmurs, no rubs ABDOMEN: Soft, nontender. No hepatosplenomegaly, normal bowel sounds, no guarding or rigidity. EXTREMITIES: No clubbing, no edema, no cyanosis, 2+ pulses and upper and lower extremities. Right calf is soft and nontender, right lower extremity is warm. MUSCULOSKELETAL: Muscle strength and tone normal. SPINE: No scoliosis or deformity SKIN: No rashes CENTRAL NERVOUS SYSTEM: Alert and oriented -3. No focal deficits, tone is normal in all 4 extremities. PSYCHIATRIC: Alert and oriented -3. Appropriate affect. Intact judgment and insight. - Labs CBC & Chem 7: 06/10/17 07:46 06/10/17 07:46 Labs: Abnormal Lab Results - Last 24 Hours (Table) 06/07/17 06/09/17 06/09/17 Range/Units 08:46 08:12 15:37 RBC 2.24 L 2.12 L (4.30-5.90) m/uL Hgb 7.5 L 7.0 L* (13.0-17.5) gm/dL Hct 24.1 L 22.9 L (39.0-53.0) % MCV 107.9 H 108.2 H (80.0-100.0) fL MCHC 30.5 L (31.0-37.0) g/dL RDW 17.1 H 16.9 H (11.5-15.5) % Neutrophils # 8.3 H 7.9 H (1.3-7.7) k/uL Lymphocytes # 0.6 L 0.5 L (1.0-4.8) k/uL BUN (9-20) mg/dL Crossmatch See Detail 06/10/17 06/10/17 Range/Units 07:46 07:46 RBC 2.70 L (4.30-5.90) m/uL Hgb 8.6 L D (13.0-17.5) gm/dL Hct 26.4 L (39.0-53.0) % MCV (80.0-100.0) fL MCHC (31.0-37.0) g/dL RDW 19.9 H (11.5-15.5) % Neutrophils # 8.5 H (1.3-7.7) k/uL Lymphocytes # 0.7 L (1.0-4.8) k/uL BUN 27 H (9-20) mg/dL Crossmatch Microbiology - Last 24 Hours (Table) 06/09/17 08:05 Urine Culture - Preliminary Urine,Catheterized Assessment and Plan Plan: Assessment: #1. Acute subcapital fracture of right femur, post mechanical fall on the concrete surface, status post right hip hemiarthroplasty, postop day 3 #2. Chronic macrocytic anemia #3. Severe COPD, with underlying FEV1 of 35% of predicted, Gold stage III #4. History of squamous cell carcinoma of lung, status post radiation therapy, and the subsequent PET/CT of the chest postradiation from 09/15/2015 showed decrease in the size of the left upper lobe mass #5. Hypertension #6. DJD of the lumbar spine #7. Osteoarthritis #8. Peripheral vascular disease #9. Hyperlipidemia #10. History of alcoholism #11. History of carotid artery disease #12. History of diverticular disease #13. Coronary arteriosclerosis #14. History of nicotine dependence, currently in remission Plan: Patient remains stable from pulmonary standpoint, denies any acute dyspnea, chest pain, cough, chest congestion. Vital signs are stable, patient is on room air. Continue encouraging incentive spirometry, continue increasing activity as tolerated. From pulmonary standpoint patient is stable for transfer to the [facility] nursing and rehab today I performed a history & physical examination of the patient and discussed their management with my nurse practitioner, Jeanette Mccall. I reviewed the nurse practitioner's note and agree with the documented findings and plan of care. Lung sounds are clear. The findings and the impression was discussed with the patient. I attest to the documentation by the nurse practitioner. Time with Patient: Less than 30
[2017-06-10 15:06] VITALS: BP 133/60; PULSE 95; TEMP 98.3
--- NOTE | 2017-06-10 15:54 | P.DS ---
Providers Date of admission: 06/06/17 19:29 Expected date of discharge: 06/10/17 Attending physician: Jorge Zhang Consults: 06/06/17 21:29 Consult Physician Routine Consulting Provider: Morenita Catalan Consult Reason/Comments: copd Do you want consulting provider notified?: Yes 06/10/17 10:20 Consult Physician Routine Consulting Provider: Seth Durand Consult Reason/Comments: medical rx Do you want consulting provider notified?: Yes Primary care physician: Luis Armando Rubio - Patricia Diagnosis(es) (1) Subcapital fracture of femur Current Visit: Yes Status: Acute (2) S/P hip hemiarthroplasty Current Visit: Yes Status: Acute Hospital Course: This is a 81-year-old male who sustained a right hip fracture after a fall on . The patient was admitted through the emergency room for orthopedic evaluation. The patient was evaluated and after discussion and consideration patient elects to proceed with right hip hemiarthroplasty. The patient is seen preoperatively by Dr. Zhang and medically cleared for surgery by Dr. Griffin. Patient is admitted to [facility] on 06/06/2017 and right hip hemiarthroplasty was done on 06/07/2017. The procedures performed without complication or sequelae. The patient is doing well postoperatively. The patient is being followed by pulmonology and internal medicine for history of COPD and lung cancer. Labs and vital signs are stable on day of discharge. Patient does have chronic anemia which worsened postoperatively. Hemoglobin has improved after blood transfusion. Patient is asymptomatic. On day of discharge patient's hip incision is healing well. There is minimal erythema. There is no drainage noted at this time. There is minimal soft tissue swelling to the hip and thigh. Patient has full foot and ankle motion without difficulty or pain. Neurovascular status to the right lower extremity is intact. Patient is discharged to rehab in good condition. Please see med rec for accurate list of home medications. Patient Condition at Discharge: Stable Plan - Discharge Summary Discharge Rx Participant: No New Discharge Prescriptions: New Rivaroxaban [Xarelto] 10 mg PO DAILY #30 tab Sennosides [Senokot] 1 tab PO BID #60 tablet traMADol HCl [Ultram] 50 mg PO Q6H PRN #60 tab PRN Reason: Pain amLODIPine [Norvasc] 5 mg PO BID tab Ipratropium-Albuterol Nebulize [Duoneb 0.5 mg-3 mg/3 ml Soln] 3 ml INHALATION RT-TID ampul.neb Budesonide-Formot 160-4.5 Mcg [Symbicort 160-4.5 Mcg Inhaler] 2 puff INHALATION RT-BID puff Continue Cholecalciferol [Vitamin D3] 1,000 unit PO DAILY Cyanocobalamin (Vitamin B-12) [Vitamin B-12] 1,000 mcg PO DAILY Ferrous Sulfate [Iron (65 MG Elemental)] 325 mg PO DAILY Omeprazole [PriLOSEC] 20 mg PO AC-BRKFST Sucralfate [Carafate] 1 gm PO ACHS PRN PRN Reason: stomach Discontinued traMADol HCl [Ultram] 50 mg PO TID PRN PRN Reason: Pain Acetaminophen-Codeine 300-30mg [Tylenol #3] 1 tab PO Q8H PRN PRN Reason: Pain Discharge Medication List Cholecalciferol [Vitamin D3] 1,000 unit PO DAILY 09/15/16 [History] Cyanocobalamin (Vitamin B-12) [Vitamin B-12] 1,000 mcg PO DAILY 09/15/16 [ History] Ferrous Sulfate [Iron (65 MG Elemental)] 325 mg PO DAILY 03/09/17 [History] Omeprazole [PriLOSEC] 20 mg PO AC-BRKFST 03/09/17 [History] Sucralfate [Carafate] 1 gm PO ACHS PRN 06/06/17 [History] Rivaroxaban [Xarelto] 10 mg PO DAILY #30 tab 06/09/17 [Rx] Sennosides [Senokot] 1 tab PO BID #60 tablet 06/09/17 [Rx] traMADol HCl [Ultram] 50 mg PO Q6H PRN #60 tab 06/09/17 [Rx] Budesonide-Formot 160-4.5 Mcg [Symbicort 160-4.5 Mcg Inhaler] 2 puff INHALATION RT-BID puff 06/10/17 [Rx] Ipratropium-Albuterol Nebulize [Duoneb 0.5 mg-3 mg/3 ml Soln] 3 ml INHALATION RT -TID ampul.neb 06/10/17 [Rx] amLODIPine [Norvasc] 5 mg PO BID tab 06/10/17 [Rx] Follow up Appointment(s)/Referral(s): Luis Armando Rubio DO [Primary Care Provider] - 1-2 days Jorge Zhang DO [Doctor of Osteopathic Medicine] - 2 Weeks Activity/Diet/Wound Care/Special Instructions: Weightbearing as tolerated with walker Leave dressing intact. Dressing may be removed by nurse in 10-14 days. May shower with dressing on. Continue hip precations with abductor pillow for 6 weeks Follow-up with [facility] in 2 weeks, please call with any questions or concerns [phone] Discharge Disposition: TRANSFER TO SNF/ECF
--- NOTE | 2017-06-10 16:48 | CDI ---
Last Revision, February 2017 Documentation Clarification Form Date: 06/10/2017 From: Ambar Salamanca Admit Date: 06/06/2017 7:29:00 PM Patient Name: Grayson Alfredo Visit Number: [id number] Discharge Date: ATTENTION: The Clinical Documentation Specialists (CDI) and [facility] Coding Staff appreciate your assistance in clarifying documentation. Please respond to the clarification below the line at the bottom and electronically sign. The CDI & [facility] Coding staff will review the response and follow-up if needed. Please note: Queries are made part of the Legal Health Record. If you have any questions, please contact the author of this message via ITS. Dr. Jorge Zhang: A diagnosis of anemia lacks specificity to accurately reflect your patients severity of condition and clarification is needed. History/Risk Factors: Per pulmonary, patient has chronic macrocytic anemia. Clinical indicators: Patient admitted via ER with a subcapital right hip fracture. To OR for a right hip hemiarthroplasty. Developed worsening anemia postoperatively requiring blood transfusion, ordered by medical management. Per the DC Summary 06/10: "Patient does have chronic anemia which worsened postoperatively. Hemoglobin has improved after blood transfusion. Patient is asymptomatic." Hemoglobin preop: 9.7; postop: 7.0 Hematocrit preop: 30.6; postop: 22.9 Treatment: 2 units of PRBCs transfused. In order to capture the severity of condition, please clarify the type of anemia and etiology if known: Acute blood loss anemia Acute on chronic blood loss anemia Chronic blood loss anemia Hemolytic anemia Drug induced anemia Nutritional anemia Anemia of chronic kidney disease Unable to determine Other, please specify Please also clarify if the postoperative anemia was an expected or unexpected outcome of the patient's surgery. Please continue to document in your progress notes and discharge summary in order to capture severity of illness and risk of mortality. Include clinical findings that support your diagnosis. Unable to determine MTDD
--- NOTE | 2017-06-10 21:37 | PN ---
PROGRESS NOTE DATE OF SURGERY: June 10, 2017. PRESENTING COMPLAINT: Right hip fracture. INTERVAL HISTORY: Patient is status post right hip surgery feeling much better. Has some pain, tolerating his diet. Breathing is stable. Due to go to the [facility] today. REVIEW OF SYSTEMS: Done for constitutional, cardiovascular, GI, pulmonary; relevant findings as above. CURRENT MEDICATIONS: Reviewed that include bronchodilators and Xarelto for DVT prophylaxis. PHYSICAL EXAMINATION: Temperature 98.3, pulse 95, respirations 16, blood pressure 133/60, pulse ox 93% on room air. General appearance: Sitting up in bed comfortable. Eyes: Pupils equal, conjunctivae pale. HEENT: External appearance of nose and ears normal. Oral cavity normal. Neck JVD not raised. Mass not palpable. Respiratory effort normal. Lungs decreased breath sounds. Cardiovascular: First and second sounds normal. No edema. ABDOMEN: Soft, nontender. Liver and spleen not palpable. Psychiatry: Awake, answering simple questions. Mood and affect normal. INVESTIGATIONS: White count 10.2, hemoglobin 8.6, potassium 3.9. ASSESSMENT: 1. Right hip septic capital fracture secondary to mechanical fall followed by right total hip arthroplasty. 2. Chronic colonic diverticulosis. 3. Peripheral artery disease. 4. Chronic obstructive pulmonary disease in an ex-smoker. 5. Essential hypertension. 6. Benign forgetfulness of the elderly. 7. 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 PLAN: Patient doing well. Going to get discharged to the ECF. Should follow up with family doctor upon discharge and Pulmonary for further followup of the lung cancer. Care was discussed with the patient. Thank you Dr. Zhang, copy to Dr. Rubio. MMBRITTANYL / IJN: [id number] /
== END 2017-06-10 17:06 | DRG 470 ==
LOC: EC 17:53 → 4MS4W 19:29
PROVIDERS: ADMIT Orthopaedic Surgery; ATTEND Orthopaedic Surgery
PROC: 0SRR0JA Replacement of Right Hip Joint, Femoral Surface with Synthetic Substitute, Uncemented, Open Approach (ICD-10-PCS; principal; 2017-06-07 11:15)
PROC: 30233N1 Transfusion of Nonautologous Red Blood Cells into Peripheral Vein, Percutaneous Approach (ICD-10-PCS; 2017-06-08)
DX: S72.011A Unspecified intracapsular fracture of right femur, initial encounter for closed fracture (principal); D53.9 Nutritional anemia, unspecified; F03.90 Unspecified dementia, unspecified severity, without behavioral disturbance, psychotic disturbance, mood disturbance, and anxiety; J44.9 Chronic obstructive pulmonary disease, unspecified; E78.5 Hyperlipidemia, unspecified; F32.9 Major depressive disorder, single episode, unspecified; I10 Essential (primary) hypertension; I25.10 Atherosclerotic heart disease of native coronary artery without angina pectoris; I73.9 Peripheral vascular disease, unspecified; K21.9 Gastro-esophageal reflux disease without esophagitis; K57.30 Diverticulosis of large intestine without perforation or abscess without bleeding; M19.90 Unspecified osteoarthritis, unspecified site; M47.816 Spondylosis without myelopathy or radiculopathy, lumbar region; R32 Unspecified urinary incontinence; W01.0XXA Fall on same level from slipping, tripping and stumbling without subsequent striking against object, initial encounter; Y92.009 Unspecified place in unspecified non-institutional (private) residence as the place of occurrence of the external cause; Z79.01 Long term (current) use of anticoagulants; Z83.3 Family history of diabetes mellitus; Z85.118 Personal history of other malignant neoplasm of bronchus and lung; Z87.891 Personal history of nicotine dependence; Z92.3 Personal history of irradiation; Z79.899 Other long term (current) drug therapy; Z79.891 Long term (current) use of opiate analgesic
CPT/HCPCS: 36415; 71045; 73501; 73502; 80048; 80053; 81001; 85025; 85610; 85730; 86850; 86900; 86901; 86920; 87086; 88305; 88311; 93005; 94640; 96361; 96374; 99285

== ENCOUNTER 2017-07-02 15:30 | Inpatient (IN) | payer MEDICARE ==
--- NOTE | 2017-07-02 16:12 | ED ---
General Adult HPI - General Chief complaint: Recheck/Abnormal Lab/Rx Stated complaint: Abn labs Time Seen by Provider: 07/02/17 15:41 Source: patient, RN notes reviewed, old records reviewed Mode of arrival: ambulatory Limitations: no limitations - History of Present Illness Initial comments: 81-year-old male presented from the intermediate with low hemoglobin. Patient is postop right hip replacement, he's been at the intermediate, routine laboratory studies were obtained and this did show new anemia. Patient reports he been having dark stools for several days. He denies any pain complaints. Denies chest pain or shortness of breath. Denies lightheadedness. Patient does not believe he is on any blood thinners, however On review of his medication list, Xarelto is listed. Patient does have past medical history of peptic ulcer. - Related Data Home Medications Medication Instructions Recorded Confirmed Cholecalciferol [Vitamin D3] 1,000 unit PO DAILY@1700 09/15/07/02/17 Ferrous Sulfate [Iron (65 MG 325 mg PO BID@0800,1700 03/09/17 07/02/17 Elemental)] Omeprazole [PriLOSEC] 20 mg PO DAILY@0600 03/09/17 07/02/17 Sucralfate [Carafate] 1 gm PO ACHS PRN 06/06/17 07/02/17 Acetaminophen Tab [Tylenol Tab] 325 mg PO Q4H PRN 07/02/17 07/02/17 Bisacodyl [Dulcolax] 10 mg RECTAL DAILY PRN 07/02/17 07/02/17 Budesonide-Formot 160-4.5 Mcg 2 puff INHALATION RT-BID@0800,1700 07/02/17 [Symbicort 160-4.5 Mcg Inhaler] Ipratropium-Albuterol Nebulize 3 ml INHALATION RT-TID@08,12,17 07/02/17 07/02/17 [Duoneb 0.5 mg-3 mg/3 ml Soln] Lactose-Reduced Food [Ensure Plus] 0.5 can PO TID@0800,1200,1700 07/02/17 Magnesium Hydroxide [Milk of 2,400 mg PO ONCE PRN 07/02/17 07/02/17 Magnesia Concentrate] Na Phos,M-B/Na Phos,Di-Ba [Fleet 133 ml RECTAL ONCE 07/02/17 07/02/17 Adult] Rivaroxaban [Xarelto] 10 mg PO DAILY@1700 07/02/17 07/02/17 Sennosides [Senokot] 1 tab PO BID@0800,1700 07/02/17 07/02/17 Tuberculin Ppd (Skin Test) 5 units INTRADERMA ONCE 07/02/17 07/02/17 [Tubersol] amLODIPine [Norvasc] 5 mg PO DAILY@0800 07/02/17 07/02/17 Previous Rx's Medication Instructions Recorded traMADol HCl [Ultram] 50 mg PO Q6H PRN #60 tab 06/09/17 Allergies Allergy/AdvReac Type Severity Reaction Status Date / Time No Known Allergies Allergy Verified 07/02/17 15:42 Review of Systems ROS Statement: Those systems with pertinent positive or pertinent negative responses have been documented in the HPI. ROS Other: All systems not noted in ROS Statement are negative. 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-pt denies, history of pneumothorax, hx scarlet fever, chronic gastritis, hx lung cancer with radiation History of Any Multi-Drug Resistant Organisms: None Reported Past Surgical History: Adenoidectomy, Tonsillectomy Additional Past Surgical History / Comment(s): LEFT CAROTID ENDARTERECTOMY Past Anesthesia/Blood Transfusion Reactions: No Reported Reaction Past Psychological History: Depression Smoking Status: Former smoker Past Alcohol Use History: None Reported Past Drug Use History: None Reported - Past Family History Father Family Medical History: Diabetes Mellitus Brother(s) Family Medical History: Deep Vein Thrombosis (DVT) General Exam Limitations: no limitations General appearance: alert, in no apparent distress Head exam: Present: atraumatic, normocephalic Eye exam: Present: normal appearance, PERRL ENT exam: Present: normal exam, normal oropharynx Neck exam: Present: normal inspection. Absent: tenderness, meningismus Respiratory exam: Present: normal lung sounds bilaterally. Absent: respiratory distress Cardiovascular Exam: Present: regular rate, normal rhythm GI/Abdominal exam: Present: soft. Absent: distended, tenderness Rectal exam: Present: black stool Extremities exam: Present: normal inspection, other (Right hip incision is clean dry and intact) Back exam: Present: normal inspection Neurological exam: Present: alert, oriented X3, CN II-XII intact. Absent: motor sensory deficit Psychiatric exam: Present: normal affect, normal mood Skin exam: Present: warm, dry, intact. Absent: cyanosis, diaphoretic Course Vital Signs 07/02/17 07/02/17 15:51 17:55 Temperature 97.8 F 98.0 F Pulse Rate 85 89 Respiratory 14 20 Rate Blood Pressure 151/68 150/65 O2 Sat by Pulse 99 97 Oximetry EKG Findings - EKG Comments: EKG Findings:: EKG shows normal sinus rhythm with first-degree AV block, no ST segment elevation. Rate of 88, DC interval 240, QRS duration 106, QTC 447 Medical Decision Making - Medical Decision Making 81-year-old male presenting with outpatient laboratory study revealing anemia with hemoglobin 6.9. Patient denies any complaints, he is asymptomatic. He does report dark stools. Hemoccult testing is positive. Repeat hemoglobin emergency Department is 8.0. Electrolytes within normal limits. Normal white blood cell count. There is mild elevation in troponin is 0.036. Patient is asymptomatic, no chest pain or dyspnea. This level will be trended. EKG is normal sinus, no ST segment elevation, there is some nonspecific ST segment changes in the lateral precordium. Patient is chest pain-free with a hemoglobin of 8, both hemoglobin and troponin will be trended. Patient is started on Protonix in the emergency department. Repeat hemoglobin will be obtained in 5 hours as well as in the morning. Patient is admitted with gastroenterology on consult. Case discussed with Dr. Camp who will accept admission. - Lab Data Result diagrams: 07/02/17 15:40 07/02/17 15:40 Lab Results 07/02/17 07/02/17 07/02/17 Range/Units 15:40 15:40 15:40 WBC 9.4 (3.8-10.6) k/uL RBC 2.44 L (4.30-5.90) m/uL Hgb 8.0 L (13.0-17.5) gm/dL Hct 24.9 L (39.0-53.0) % MCV 101.9 H (80.0-100.0) fL MCH 32.8 (25.0-35.0) pg MCHC 32.2 (31.0-37.0) g/dL RDW 18.8 H (11.5-15.5) % Plt Count 254 (150-450) k/uL Neutrophils % 86 % Lymphocytes % 8 % Monocytes % 4 % Eosinophils % 0 % Basophils % 0 % Neutrophils # 8.1 H (1.3-7.7) k/uL Lymphocytes # 0.7 L (1.0-4.8) k/uL Monocytes # 0.4 (0-1.0) k/uL Eosinophils # 0.0 (0-0.7) k/uL Basophils # 0.0 (0-0.2) k/uL Hypochromasia Slight Anisocytosis Slight Macrocytosis Moderate PT (9.0-12.0) sec INR (<1.2) APTT (22.0-30.0) sec Sodium 146 H (137-145) mmol/L Potassium 3.5 (3.5-5.1) mmol/L Chloride 106 (98-107) mmol/L Carbon Dioxide 26 (22-30) mmol/L Anion Gap 14 mmol/L BUN 25 H (9-20) mg/dL Creatinine 0.70 (0.66-1.25) mg/dL Est GFR (CKD-EPI)AfAm >90 (>60 ml/min/1.73 sqM) Est GFR (CKD-EPI)NonAf 88 (>60 ml/min/1.73 sqM) Glucose 105 H (74-99) mg/dL Calcium 9.0 (8.4-10.2) mg/dL Total Bilirubin 0.3 (0.2-1.3) mg/dL AST 19 (17-59) U/L ALT 13 L (21-72) U/L Alkaline Phosphatase 101 (38-126) U/L Total Creatine Kinase 45 L (55-170) U/L CK-MB (CK-2) 1.5 (0.0-2.4) ng/mL CK-MB (CK-2) Rel Index 3.3 Troponin I 0.036 H* (0.000-0.034) ng/mL Total Protein 6.5 (6.3-8.2) g/dL Albumin 3.2 L (3.5-5.0) g/dL Stool Occult Blood (Negative) Blood Type Blood Type Recheck Antibody Screen Spec Expiration Date 07/02/17 07/02/17 07/02/17 Range/Units 15:40 15:40 15:40 WBC (3.8-10.6) k/uL RBC (4.30-5.90) m/uL Hgb (13.0-17.5) gm/dL Hct (39.0-53.0) % MCV (80.0-100.0) fL MCH (25.0-35.0) pg MCHC (31.0-37.0) g/dL RDW (11.5-15.5) % Plt Count (150-450) k/uL Neutrophils % % Lymphocytes % % Monocytes % % Eosinophils % % Basophils % % Neutrophils # (1.3-7.7) k/uL Lymphocytes # (1.0-4.8) k/uL Monocytes # (0-1.0) k/uL Eosinophils # (0-0.7) k/uL Basophils # (0-0.2) k/uL Hypochromasia Anisocytosis Macrocytosis PT 10.0 (9.0-12.0) sec INR 1.0 (<1.2) APTT 21.3 L (22.0-30.0) sec Sodium (137-145) mmol/L Potassium (3.5-5.1) mmol/L Chloride (98-107) mmol/L Carbon Dioxide (22-30) mmol/L Anion Gap mmol/L BUN (9-20) mg/dL Creatinine (0.66-1.25) mg/dL Est GFR (CKD-EPI)AfAm (>60 ml/min/1.73 sqM) Est GFR (CKD-EPI)NonAf (>60 ml/min/1.73 sqM) Glucose (74-99) mg/dL Calcium (8.4-10.2) mg/dL Total Bilirubin (0.2-1.3) mg/dL AST (17-59) U/L ALT (21-72) U/L Alkaline Phosphatase (38-126) U/L Total Creatine Kinase (55-170) U/L CK-MB (CK-2) (0.0-2.4) ng/mL CK-MB (CK-2) Rel Index Troponin I (0.000-0.034) ng/mL Total Protein (6.3-8.2) g/dL Albumin (3.5-5.0) g/dL Stool Occult Blood Positive (Negative) Blood Type O Positive Blood Type Recheck No Antibody Screen NEGATIVE Spec Expiration Date 07/05/2017 - 2340 Disposition Clinical Impression: GI bleed Disposition: ADMITTED IP TO THIS [facility] Condition: Stable Referrals: Luis Armando Rubio DO [Primary Care Provider] - 1-2 days Decision to Admit Reason: Admit from EC Decision Date: 07/02/17 Decision Time: 17:53
[2017-07-02 16:58] LABS: Anisocytosis Slight; Basophils % (A) 0 %; Eosinophils % (A) 0 %; HCT 24.9 % (39.0-53.0); Hypochromasia Slight; Lymphocytes # (A) 0.7 k/uL (1.0-4.8); Lymphocytes % (A) 8 %; MCH 32.8 pg (25.0-35.0); MCHC 32.2 g/dL (31.0-37.0); MCV 101.9 fL (80.0-100.0); Macrocytosis Moderate; Mean Platelet Volume 8.3; Monocytes # (A) 0.4 k/uL (0-1.0); Monocytes % (A) 4 %; Neutrophils # (A) 8.1 k/uL (1.3-7.7); Neutrophils % (A) 86 %; Platelet Count 254 k/uL (150-450); RBC 2.44 m/uL (4.30-5.90); RDW 18.8 % (11.5-15.5); WBC 9.4 k/uL (3.8-10.6)
[2017-07-02 17:00] LABS: ALT 13 U/L (21-72); AST 19 U/L (17-59); Albumin 3.2 g/dL (3.5-5.0); Alkaline Phosphatase 101 U/L (38-126); Anion Gap 14 mmol/L; Blood Urea Nitrogen 25 mg/dL (9-20); Carbon Dioxide 26 mmol/L (22-30); Chloride 106 mmol/L (98-107); Glucose 105 mg/dL (74-99); Potassium 3.5 mmol/L (3.5-5.1); Sodium 146 mmol/L (137-145); Total Bilirubin 0.3 mg/dL (0.2-1.3); Total Protein 6.5 g/dL (6.3-8.2)
[2017-07-02 17:14] LABS: Partial Thromboplastin Time 21.3 sec (22.0-30.0)
[2017-07-02] MEDS ORDERED: PANTOPRAZOLE 40 MG/10 ML VIAL IVP STA (17:23)
[2017-07-02 17:29] LABS: Creatine Kinase MB 1.5 ng/mL (0.0-2.4)
[2017-07-02 17:32] LABS: Troponin I 0.036 ng/mL (0.000-0.034)
[2017-07-02] MEDS ORDERED: NALOXONE 0.4 MG/ML 1 ML VIAL IV PRN (17:34)
[2017-07-02] MEDS ORDERED: ONDANSETRON 4 MG/2 ML VIAL IVP PRN (17:34)
[2017-07-02] MEDS: SODIUM CHLORIDE 0.9% 1,000 ML IV SCH (17:51)
[2017-07-03 06:44] LABS: Anisocytosis Slight; Basophils # (A) 0.1 k/uL (0-0.2); Basophils % (A) 1 %; Eosinophils # (A) 0.1 k/uL (0-0.7); Eosinophils % (A) 1 %; HCT 22.3 % (39.0-53.0); Hypochromasia Marked; Lymphocytes # (A) 0.5 k/uL (1.0-4.8); Lymphocytes % (A) 9 %; MCH 32.6 pg (25.0-35.0); MCV 105.1 fL (80.0-100.0); Macrocytosis Marked; Mean Platelet Volume 8.5; Monocytes # (A) 0.3 k/uL (0-1.0); Monocytes % (A) 5 %; Neutrophils # (A) 4.9 k/uL (1.3-7.7); Neutrophils % (A) 82 %; Platelet Count 196 k/uL (150-450); RBC 2.13 m/uL (4.30-5.90); WBC 5.9 k/uL (3.8-10.6)
[2017-07-03 06:48] LABS: HGB 6.9 gm/dL (13.0-17.5)
[2017-07-03 07:02] LABS: ALT 20 U/L (21-72); AST 16 U/L (17-59); Albumin 2.5 g/dL (3.5-5.0); Alkaline Phosphatase 92 U/L (38-126); Anion Gap 8 mmol/L; Blood Urea Nitrogen 17 mg/dL (9-20); Calcium 8.2 mg/dL (8.4-10.2); Carbon Dioxide 28 mmol/L (22-30); Chloride 108 mmol/L (98-107); Glucose 80 mg/dL (74-99); Potassium 3.6 mmol/L (3.5-5.1); Sodium 144 mmol/L (137-145); Total Bilirubin 0.3 mg/dL (0.2-1.3); Total Protein 5.4 g/dL (6.3-8.2)
[2017-07-03] MEDS: SODIUM CHLORIDE 0.9% 1,000 ML IV SCH ×2 (09:47→23:12)
[2017-07-03] MEDS: PANTOPRAZOLE 40 MG/10 ML VIAL IVP SCH ×2 (10:09→23:11)
[2017-07-03] MEDS ORDERED: ACETAMINOPHEN TAB 325 MG TAB PO PRN (12:16)
[2017-07-03] MEDS ORDERED: traMADol 50 MG TAB PO PRN (12:16)
[2017-07-03] MEDS ORDERED: SUCRALFATE 1 GM TAB PO PRN (12:16)
--- NOTE | 2017-07-03 14:02 | P.HPIM ---
History of Present Illness 78-year-old was sent from assisted because of low hemoglobin which has gone down from 8.7 rate now 6.9. Patient is on anticoagulation on Xarelto after his recent hip surgery about 3 weeks ago. Patient denied any abdominal pain was comparing of dark stools although patient is otherwise supplementation major couple stools yesterday patient is not a very good historian patient evidently had the couple more stools day before although he doesn't remember the how frequently he is going to the bathroom. Patient denied any fever chills. Patient hemoglobin today morning is 6.9 is a 61 unit of transfusion patient was started on Protonix antiplatelet correlation is on hold will use SCDs for DVT prophylaxis. Monitor for any more clinical GI bleed. No hematemesis or hematochezia Review of Systems REVIEW OF SYSTEMS: CONSTITUTIONAL: No fever, no malaise, no fatigue. HEENT: No recent visual problems or hearing problems. Denied any sore throat. CARDIOVASCULAR: No chest pain, orthopnea, PND, no palpitations, no syncope. PULMONARY: No shortness of breath, no cough, no hemoptysis. GASTROINTESTINAL as mentioned in HPI NEUROLOGICAL: No headaches, no weakness, no numbness. HEMATOLOGICAL: Denies any bleeding or petechiae. GENITOURINARY: Denies any burning micturition, frequency, or urgency. MUSCULOSKELETAL/RHEUMATOLOGICAL: Denies any joint pain, swelling, or any muscle pain. ENDOCRINE: Denies any polyuria or polydipsia. The rest of the 14-point review of systems is negative. 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-pt denies, history of pneumothorax, hx scarlet fever, chronic gastritis, hx lung cancer with radiation History of Any Multi-Drug Resistant Organisms: None Reported Past Surgical History: Adenoidectomy, Tonsillectomy Additional Past Surgical History / Comment(s): LEFT CAROTID ENDARTERECTOMY recent right hip surgery Past Anesthesia/Blood Transfusion Reactions: No Reported Reaction Past Psychological History: Depression Additional Psychological History / Comment(s): lives in house with Smoking Status: Former smoker Past Alcohol Use History: None Reported Additional Past Alcohol Use History / Comment(s): quit smoking approx 15 yrs ago , smoked for approx 20 yrs Past Drug Use History: None Reported - Past Family History Father Family Medical History: Diabetes Mellitus Brother(s) Family Medical History: Deep Vein Thrombosis (DVT) Medications and Allergies Home Medications Medication Instructions Recorded Confirmed Type Cholecalciferol [Vitamin D3] 1,000 unit PO DAILY@1700 09/15/16 07/02/17 History Ferrous Sulfate [Iron (65 MG 325 mg PO BID@0800,1700 03/09/17 07/02/17 History Elemental)] Omeprazole [PriLOSEC] 20 mg PO DAILY@0600 03/09/17 07/02/17 History Sucralfate [Carafate] 1 gm PO ACHS PRN 06/06/17 07/02/17 History traMADol HCl [Ultram] 50 mg PO Q6H PRN #60 tab 06/09/17 07/02/17 Rx Acetaminophen Tab [Tylenol Tab] 325 mg PO Q4H PRN 07/02/17 07/02/17 History Bisacodyl [Dulcolax] 10 mg RECTAL DAILY PRN 07/02/17 07/02/17 History Budesonide-Formot 160-4.5 Mcg 2 puff INHALATION RT-BID@0800,1700 07/02/17 History [Symbicort 160-4.5 Mcg Inhaler] Ipratropium-Albuterol Nebulize 3 ml INHALATION RT-TID@08,12,17 07/02/17 History [Duoneb 0.5 mg-3 mg/3 ml Soln] Lactose-Reduced Food [Ensure Plus] 0.5 can PO TID@0800,1200,0 07/02/17 History Magnesium Hydroxide [Milk of 2,400 mg PO ONCE PRN 07/02/17 07/02/17 History Magnesia Concentrate] Na Phos,M-B/Na Phos,Di-Ba [Fleet 133 ml RECTAL ONCE 07/02/17 07/02/17 History Adult] Rivaroxaban [Xarelto] 10 mg PO DAILY@1700 07/02/17 07/02/17 History Sennosides [Senokot] 1 tab PO BID@0800,1700 07/02/17 07/02/17 History Tuberculin Ppd (Skin Test) 5 units INTRADERMA ONCE 07/02/17 07/02/17 History [Tubersol] amLODIPine [Norvasc] 5 mg PO DAILY@0800 07/02/17 07/02/17 History Allergies Allergy/AdvReac Type Severity Reaction Status Date / Time No Known Allergies Allergy Verified 07/02/17 15:42 Physical Exam Vitals: Vital Signs Temp Pulse Pulse Resp BP BP Pulse Ox 07/03/17 12:30 96.8 F L 95 16 144/65 96 07/03/17 10:08 97.7 F 82 16 135/62 96 07/03/17 09:38 97.3 F L 85 16 135/62 97 07/03/17 09:28 97.3 F L 90 16 143/65 96 07/03/17 04:00 97.3 F L 106 H 18 116/57 95 07/02/17 21:30 97.8 F 90 18 143/67 96 07/02/17 21:03 97.8 F 90 18 143/67 96 07/02/17 18:39 98.8 F 86 16 165/70 97 07/02/17 17:55 98.0 F 89 20 150/65 97 07/02/17 15:51 97.8 F 85 14 151/68 99 Intake and Output 07/02/17 07/03/17 07/03/17 22:59 06:59 14:59 Intake Total 310 Output Total 250 500 Balance -250 -500 310 Intake: Blood Product 310 Rc As-1 Unit 310 [id number] Output: Urine 250 500 Other: # Voids 1 2 Weight 68.039 kg 67.6 kg PHYSICAL EXAMINATION: GENERAL: The patient is alert and oriented x3, not in any acute distress. Well developed, well nourished. HEENT: Pupils are round and equally reacting to light. EOMI. No scleral icterus. He does have conjunctival pallor. Normocephalic, atraumatic. No pharyngeal erythema. No thyromegaly. CARDIOVASCULAR: S1 and S2 present. No murmurs, rubs, or gallops. PULMONARY: Chest is clear to auscultation, no wheezing or crackles. ABDOMEN: Soft, nontender, nondistended, normoactive bowel sounds. No palpable organomegaly. MUSCULOSKELETAL: No joint swelling or deformity. EXTREMITIES: No cyanosis, clubbing, or pedal edema. NEUROLOGICAL: Gross neurological examination did not reveal any focal deficits. SKIN: No rashes. Results CBC & Chem 7: 07/03/17 06:03 07/03/17 06:03 Labs: Abnormal Lab Results - Last 24 Hours (Table) 07/02/17 07/02/17 07/02/17 Range/Units 15:40 15:40 15:40 RBC 2.44 L (4.30-5.90) m/uL Hgb 8.0 L (13.0-17.5) gm/dL Hct 24.9 L (39.0-53.0) % MCV 101.9 H (80.0-100.0) fL RDW 18.8 H (11.5-15.5) % Neutrophils # 8.1 H (1.3-7.7) k/uL Lymphocytes # 0.7 L (1.0-4.8) k/uL APTT (22.0-30.0) sec Sodium 146 H (137-145) mmol/L Chloride (98-107) mmol/L BUN 25 H (9-20) mg/dL Creatinine (0.66-1.25) mg/dL Glucose 105 H (74-99) mg/dL Calcium (8.4-10.2) mg/dL AST (17-59) U/L ALT 13 L (21-72) U/L Total Creatine Kinase 45 L (55-170) U/L Troponin I 0.036 H* (0.000-0.034) ng/mL Total Protein (6.3-8.2) g/dL Albumin 3.2 L (3.5-5.0) g/dL Crossmatch 07/02/17 07/02/17 07/03/17 Range/Units 15:40 15:40 06:03 RBC 2.13 L (4.30-5.90) m/uL Hgb 6.9 L* (13.0-17.5) gm/dL Hct 22.3 L (39.0-53.0) % MCV 105.1 H (80.0-100.0) fL RDW 19.0 H (11.5-15.5) % Neutrophils # (1.3-7.7) k/uL Lymphocytes # 0.5 L (1.0-4.8) k/uL APTT 21.3 L (22.0-30.0) sec Sodium (137-145) mmol/L Chloride (98-107) mmol/L BUN (9-20) mg/dL Creatinine (0.66-1.25) mg/dL Glucose (74-99) mg/dL Calcium (8.4-10.2) mg/dL AST (17-59) U/L ALT (21-72) U/L Total Creatine Kinase (55-170) U/L Troponin I (0.000-0.034) ng/mL Total Protein (6.3-8.2) g/dL Albumin (3.5-5.0) g/dL Crossmatch See Detail 07/03/17 Range/Units 06:03 RBC (4.30-5.90) m/uL Hgb (13.0-17.5) gm/dL Hct (39.0-53.0) % MCV (80.0-100.0) fL RDW (11.5-15.5) % Neutrophils # (1.3-7.7) k/uL Lymphocytes # (1.0-4.8) k/uL APTT (22.0-30.0) sec Sodium (137-145) mmol/L Chloride 108 H (98-107) mmol/L BUN (9-20) mg/dL Creatinine 0.63 L (0.66-1.25) mg/dL Glucose (74-99) mg/dL Calcium 8.2 L (8.4-10.2) mg/dL AST 16 L (17-59) U/L ALT 20 L (21-72) U/L Total Creatine Kinase (55-170) U/L Troponin I (0.000-0.034) ng/mL Total Protein 5.4 L (6.3-8.2) g/dL Albumin 2.5 L (3.5-5.0) g/dL Crossmatch Thrombosis Risk Factor Assmnt - Choose All That Apply Each Risk Factor Represents 3 Points: Age 75 years or older Thrombosis Risk Factor Assessment Total Risk Factor Score: 3 Thrombosis Risk Factor Assessment Level: Moderate Risk Assessment and Plan Plan: -Possible acute blood loss anemia possibility of upper GI bleed from possibly a peptic ulcer disease-history is not impressive for significant bleed as he only had 1 or 2 bowel movements a day. Anyways we'll monitor his hemoglobin here will transfuse 1 unit of blood. The drop in hemoglobin from yesterday can be hemodilution 3 affect. Patient is on Protonix. -Recent hip surgery: Depending on the recommendations from gastro-oncology will decide on further anticoagulation for recent hip surgery. -COPD with a possible minimal exacerbation will not require any systemic strides continue on inhalational steroids -Hyperlipidemia -Gastric esophageal reflux disease next and-due to prophylaxis with SCDs because of acute GI bleed -Peripheral vascular disease
[2017-07-03] MEDS ORDERED: LACTOSE REDUCED FOOD PO SCH (17:00)
[2017-07-03] MEDS ORDERED: IPRATROPIUM-ALBUTEROL 3 ML NEB INHALATION SCH (17:00)
[2017-07-03] MEDS ORDERED: Potassium Replacement Protocol 1 EACH MISC MISCELLANE PRN (17:29)
[2017-07-03] MEDS ORDERED: Magnesium Replacement Protocol 1 EACH MISC MISCELLANE PRN (17:30)
[2017-07-03] MEDS ORDERED: POTASSIUM CHLORIDE ER 20 MEQ TAB.ER PO SCH (18:00)
[2017-07-03] MEDS: MAGNESIUM SULFATE-D5W PMX 1 GM in DEXTROSE/WATER 1 100ML.BAG IVPB SCH ×2 (18:26→22:20)
[2017-07-03] MEDS: SYMBICORT 160-4.5 MCG INHALER INHALATION SCH (18:47)
[2017-07-03] MEDS ORDERED: IPRATROPIUM-ALBUTEROL 3 ML NEB INHALATION PRN (20:08)
[2017-07-04 06:35] LABS: Anisocytosis Slight; HCT 25.4 % (39.0-53.0); HGB 7.9 gm/dL (13.0-17.5); Hypochromasia Moderate; MCH 31.3 pg (25.0-35.0); Macrocytosis Moderate; Mean Platelet Volume 8.4; Platelet Count 198 k/uL (150-450); RBC 2.51 m/uL (4.30-5.90); RDW 19.1 % (11.5-15.5); WBC 6.3 k/uL (3.8-10.6)
[2017-07-04] MEDS: IPRATROPIUM-ALBUTEROL 3 ML NEB INHALATION SCH ×3 (07:54→20:07)
[2017-07-04] MEDS: SYMBICORT 160-4.5 MCG INHALER INHALATION SCH ×2 (07:54→20:06)
[2017-07-04] MEDS: PANTOPRAZOLE 40 MG/10 ML VIAL IVP SCH (08:46)
[2017-07-04] MEDS: amLODIPine 5 MG TAB PO SCH (08:46)
[2017-07-04] MEDS: SODIUM CHLORIDE 0.9% 1,000 ML IV SCH (08:46)
[2017-07-04] MEDS ORDERED: Potassium Replacement Protocol 1 EACH MISC MISCELLANE PRN (09:06)
[2017-07-04] MEDS ORDERED: POTASSIUM CHLORIDE ER 20 MEQ TAB.ER PO SCH (10:00)
--- NOTE | 2017-07-04 10:36 | P.CONS ---
History of Present Illness - Reason for Consult Consult date: 07/03/17 Anemia and suspected GI bleeding - History of Present Illness The patient is an 81-year-old male who was transferred from [facility] because of finding of low hemoglobin. The patient had right hip surgery around 3 weeks ago and was at rehab since that time with a target discharge date early next week. His hemoglobin which was 8.7 was found to be around 7.3 and repeat level of the hospital was 6.9. The patient reported dark stools for a few days but denied hematemesis. No hematochezia. No abdominal pains, dysphagia, odynophagia, nausea or vomiting. He does have reflux symptoms and I have performed an upper endoscopy in November 2013 and found erosive gastritis which at that time was related to use of NSAIDs. The patient was on Xarelto which is on hold. He has received 1 unit of packed cells. Currently he is receiving Protonix as well. Review of Systems Constitutional: Denies fever, chills, sweats, weight gain, or loss. HEENT: Negative for migraines, blurred vision or loss, earaches, drainage, tinnitus, oral mucosal lesions, dysphagia, or odynophagia. CARDIAC: Negative for chest pain, arrhythmias, or palpitation. RESPIRATORY: Negative for shortness of breath, hemoptysis, cough, or sputum production. GI: See HPI for pertinent findings. : Negative for hematuria, urgency, frequency, polyuria, or dysuria. GYNc: Denies possibility of . MUSCULOSKELETAL: Negative for muscle aches, swelling, arthritis, and arthralgias. NEUROLOGIC: Negative for stroke or TIA. ENDOCRINE: Negative for thyroid problems. SKIN: Negative for rash or itching. 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-pt denies, history of pneumothorax, hx scarlet fever, chronic gastritis, hx lung cancer with radiation History of Any Multi-Drug Resistant Organisms: None Reported Past Surgical History: Adenoidectomy, Tonsillectomy Additional Past Surgical History / Comment(s): LEFT CAROTID ENDARTERECTOMY recent right hip surgery Past Anesthesia/Blood Transfusion Reactions: No Reported Reaction Past Psychological History: Depression Additional Psychological History / Comment(s): lives in house with Smoking Status: Former smoker Past Alcohol Use History: None Reported Additional Past Alcohol Use History / Comment(s): quit smoking approx 15 yrs ago , smoked for approx 20 yrs Past Drug Use History: None Reported - Past Family History Father Family Medical History: Diabetes Mellitus Brother(s) Family Medical History: Deep Vein Thrombosis (DVT) Medications and Allergies Home Medications Medication Instructions Recorded Confirmed Type Cholecalciferol [Vitamin D3] 1,000 unit PO DAILY@1700 09/15/16 07/02/17 History Ferrous Sulfate [Iron (65 MG 325 mg PO BID@0800,1700 03/09/17 07/02/17 History Elemental)] Omeprazole [PriLOSEC] 20 mg PO DAILY@0600 03/09/17 07/02/17 History Sucralfate [Carafate] 1 gm PO ACHS PRN 06/06/17 07/02/17 History traMADol HCl [Ultram] 50 mg PO Q6H PRN #60 tab 06/09/17 07/02/17 Rx Acetaminophen Tab [Tylenol Tab] 325 mg PO Q4H PRN 07/02/17 07/02/17 History Bisacodyl [Dulcolax] 10 mg RECTAL DAILY PRN 07/02/17 07/02/17 History Budesonide-Formot 160-4.5 Mcg 2 puff INHALATION RT-BID@0800,0 07/02/17 History [Symbicort 160-4.5 Mcg Inhaler] Ipratropium-Albuterol Nebulize 3 ml INHALATION RT-TID@08,,07/02/17 History [Duoneb 0.5 mg-3 mg/3 ml Soln] Lactose-Reduced Food [Ensure Plus] 0.5 can PO TID@0800,1200,1700 07/02/17 History Magnesium Hydroxide [Milk of 2,400 mg PO ONCE PRN 07/02/17 07/02/17 History Magnesia Concentrate] Na Phos,M-B/Na Phos,Di-Ba [Fleet 133 ml RECTAL ONCE 07/02/17 07/02/17 History Adult] Rivaroxaban [Xarelto] 10 mg PO DAILY@1700 07/02/17 07/02/17 History Sennosides [Senokot] 1 tab PO BID@0800,1700 07/02/17 07/02/17 History Tuberculin Ppd (Skin Test) 5 units INTRADERMA ONCE 07/02/17 07/02/17 History [Tubersol] amLODIPine [Norvasc] 5 mg PO DAILY@0800 07/02/17 07/02/17 History Allergies Allergy/AdvReac Type Severity Reaction Status Date / Time No Known Allergies Allergy Verified 07/02/17 15:42 Physical Exam Vitals: Vital Signs Temp Pulse Pulse Resp BP BP Pulse Ox 07/03/17 09:38 97.3 F L 85 16 135/62 97 07/03/17 09:28 97.3 F L 90 16 143/65 96 07/03/17 04:00 97.3 F L 106 H 18 116/57 95 07/02/17 21:30 97.8 F 90 18 143/67 96 07/02/17 21:03 97.8 F 90 18 143/67 96 07/02/17 18:39 98.8 F 86 16 165/70 97 07/02/17 17:55 98.0 F 89 20 150/65 97 07/02/17 15:51 97.8 F 85 14 151/68 99 Intake and Output 07/02/17 07/03/17 07/03/17 22:59 06:59 14:59 Intake Total 0 Output Total 250 500 Balance -250 -500 0 Intake: Blood Product 0 Rc As-1 Unit 0 [id number] Output: Urine 250 500 Other: # Voids 1 2 Weight 68.039 kg 67.6 kg General appearance: The patient is alert, oriented, in no acute distress. HET: Head is normocephalic and atraumatic. Conjunctivae pink, sclerae not icteric. Pupils are equal and reactive. Oropharynx is clear without lesions. Neck: Supple without lymphadenopathy. Trachea midline. Heart: S1 S2. Regular rate and rhythm. Lungs: No crackles or wheezes are heard. Abdomen: Soft, nondistended bowel sounds present. No peritoneal signs. No palpable organomegaly or masses. Extremities: Normal skin color and turgor. No cyanosis, rash, ulceration, clubbing, or edema. Radial and pedal pulses are 2/4 bilaterally. Neurological: No focal deficits. Strength and sensation are grossly intact. Results CBC & Chem 7: 07/04/17 05:35 07/04/17 05:35 Labs: Abnormal Lab Results - Last 24 Hours (Table) 07/02/17 07/02/17 07/02/17 Range/Units 15:40 15:40 15:40 RBC 2.44 L (4.30-5.90) m/uL Hgb 8.0 L (13.0-17.5) gm/dL Hct 24.9 L (39.0-53.0) % MCV 101.9 H (80.0-100.0) fL RDW 18.8 H (11.5-15.5) % Neutrophils # 8.1 H (1.3-7.7) k/uL Lymphocytes # 0.7 L (1.0-4.8) k/uL APTT (22.0-30.0) sec Sodium 146 H (137-145) mmol/L Chloride (98-107) mmol/L BUN 25 H (9-20) mg/dL Creatinine (0.66-1.25) mg/dL Glucose 105 H (74-99) mg/dL Calcium (8.4-10.2) mg/dL AST (17-59) U/L ALT 13 L (21-72) U/L Total Creatine Kinase 45 L (55-170) U/L Troponin I 0.036 H* (0.000-0.034) ng/mL Total Protein (6.3-8.2) g/dL Albumin 3.2 L (3.5-5.0) g/dL Crossmatch 07/02/17 07/02/17 07/03/17 Range/Units 15:40 15:40 06:03 RBC 2.13 L (4.30-5.90) m/uL Hgb 6.9 L* (13.0-17.5) gm/dL Hct 22.3 L (39.0-53.0) % MCV 105.1 H (80.0-100.0) fL RDW 19.0 H (11.5-15.5) % Neutrophils # (1.3-7.7) k/uL Lymphocytes # 0.5 L (1.0-4.8) k/uL APTT 21.3 L (22.0-30.0) sec Sodium (137-145) mmol/L Chloride (98-107) mmol/L BUN (9-20) mg/dL Creatinine (0.66-1.25) mg/dL Glucose (74-99) mg/dL Calcium (8.4-10.2) mg/dL AST (17-59) U/L ALT (21-72) U/L Total Creatine Kinase (55-170) U/L Troponin I (0.000-0.034) ng/mL Total Protein (6.3-8.2) g/dL Albumin (3.5-5.0) g/dL Crossmatch See Detail 07/03/17 Range/Units 06:03 RBC (4.30-5.90) m/uL Hgb (13.0-17.5) gm/dL Hct (39.0-53.0) % MCV (80.0-100.0) fL RDW (11.5-15.5) % Neutrophils # (1.3-7.7) k/uL Lymphocytes # (1.0-4.8) k/uL APTT (22.0-30.0) sec Sodium (137-145) mmol/L Chloride 108 H (98-107) mmol/L BUN (9-20) mg/dL Creatinine 0.63 L (0.66-1.25) mg/dL Glucose (74-99) mg/dL Calcium 8.2 L (8.4-10.2) mg/dL AST 16 L (17-59) U/L ALT 20 L (21-72) U/L Total Creatine Kinase (55-170) U/L Troponin I (0.000-0.034) ng/mL Total Protein 5.4 L (6.3-8.2) g/dL Albumin 2.5 L (3.5-5.0) g/dL Crossmatch Assessment and Plan Assessment: Anemia likely related to upper GI bleeding from gastritis while on Xarelto. Plan: Agree with your current management. I did not schedule an upper endoscopy at this time and this can be kept as a contingency based on his course over the next 24-48 hours and his repeat blood counts. I will discuss with you and follow with you with interest.
--- NOTE | 2017-07-04 14:57 | P.PN ---
Subjective 78-year-old gentleman came in with the upper GI bleed no more dark stools patient had one bowel movement which is normal patient's anti-correlation is on hold. Will monitor 1 more day if she doesn't have any more GI bleed patient can be discharged home patient came in from senior care completed his physical therapy and ambulating okay. Constitutional: Denied any fatigue denied any fever. Cardio vascular: denied any chest pain, palpitations Gastrointestinal denied any nausea vomiting Pulmonary: Denied any shortness of breath cough Neurologic denied any new focal deficits Objective - Vital Signs Vital signs: Vital Signs Temp 96.3 F L 07/04/17 08:50 Pulse 85 07/04/17 08:50 Resp 16 07/04/17 11:54 BP 147/68 07/04/17 08:50 Pulse Ox 97 07/04/17 08:50 Intake & Output 07/03/17 07/04/17 07/04/17 18:59 06:59 18:59 Intake Total 310 237 Output Total 500 1050 Balance -190 -1050 237 Weight 66.2 kg Intake: Oral 237 Blood Product 310 Rc As-1 Unit 310 [id number] Output: Urine 500 1050 Other: # Voids 1 1 1 # Bowel Movements 1 - Exam PHYSICAL EXAMINATION: GENERAL: The patient is alert and oriented x3, not in any acute distress. Well developed, well nourished. HEENT: Pupils are round and equally reacting to light. EOMI. No scleral icterus. He does have conjunctival pallor. Normocephalic, atraumatic. No pharyngeal erythema. No thyromegaly. CARDIOVASCULAR: S1 and S2 present. No murmurs, rubs, or gallops. PULMONARY: Chest is clear to auscultation, no wheezing or crackles. ABDOMEN: Soft, nontender, nondistended, normoactive bowel sounds. No palpable organomegaly. MUSCULOSKELETAL: No joint swelling or deformity. EXTREMITIES: No cyanosis, clubbing, or pedal edema. NEUROLOGICAL: Gross neurological examination did not reveal any focal deficits. SKIN: No rashes. - Labs CBC & Chem 7: 07/04/17 05:35 07/04/17 05:35 Labs: Abnormal Lab Results - Last 24 Hours (Table) 07/03/17 07/04/17 Range/Units 06:03 05:35 RBC 2.51 L (4.30-5.90) m/uL Hgb 7.9 L (13.0-17.5) gm/dL Hct 25.4 L (39.0-53.0) % MCV 101.0 H (80.0-100.0) fL RDW 19.1 H (11.5-15.5) % Magnesium 1.5 L (1.6-2.3) mg/dL Assessment and Plan Plan: -Possible acute blood loss anemia possibility of upper GI bleed from possibly a peptic ulcer disease-history and no more GI bleed will monitor 1 more day but doesn't have any GI bleed will be discharged home tomorrow. Before discharge we may need to completely discontinue anticoagulation as he completed a 3 weeks off anticoagulations for hip surgery. (Recommended for 4 weeks) -Recent hip surgery: Depending on the recommendations from gastro-enterology will decide on further anticoagulation for recent hip surgery. -COPD with a possible minimal exacerbation will not require any systemic steroids continue on inhalational steroids, improved with inhalational steroids -Hyperlipidemia -Gastric esophageal reflux disease next and-due to prophylaxis with SCDs because of acute GI bleed -Peripheral vascular disease
[2017-07-04] MEDS: PANTOPRAZOLE 40 MG TABLET PO SCH (17:46)
[2017-07-05 03:12] VITALS: RESP 20
[2017-07-05 07:19] VITALS: BP 133/68; TEMP 97.4
[2017-07-05] MEDS: IPRATROPIUM-ALBUTEROL 3 ML NEB INHALATION SCH ×2 (07:28→13:41)
[2017-07-05] MEDS: SYMBICORT 160-4.5 MCG INHALER INHALATION SCH (07:28)
[2017-07-05 07:42] VITALS: PULSE 84
[2017-07-05 08:59] LABS: Anisocytosis Slight; HGB 8.8 gm/dL (13.0-17.5); Hypochromasia Slight; MCH 32.7 pg (25.0-35.0); MCHC 32.5 g/dL (31.0-37.0); MCV 100.4 fL (80.0-100.0); Macrocytosis Moderate; Mean Platelet Volume 8.1; Platelet Count 239 k/uL (150-450); RBC 2.69 m/uL (4.30-5.90); RDW 19.5 % (11.5-15.5)
[2017-07-05] MEDS: PANTOPRAZOLE 40 MG TABLET PO SCH (09:06)
[2017-07-05] MEDS: amLODIPine 5 MG TAB PO SCH (09:06)
[2017-07-05 09:13] LABS: Anion Gap 11 mmol/L; Blood Urea Nitrogen 14 mg/dL (9-20); Calcium 8.3 mg/dL (8.4-10.2); Carbon Dioxide 27 mmol/L (22-30); Chloride 106 mmol/L (98-107); Glucose 80 mg/dL (74-99); Potassium 3.7 mmol/L (3.5-5.1); Sodium 144 mmol/L (137-145)
--- NOTE | 2017-07-05 10:44 | P.PN ---
Subjective Progress Note Date: 07/05/17 Principal diagnosis: Upper GI bleed dark-colored bowel movements. 81-year-old male admitted with suspected upper GI bleed with dark colored bowel movements receiving anticoagulation previous hip surgery. Presently denies abdominal pain. No reports of hematemesis medicated melena. Hemoglobin improving 8.8 today. Tolerating diet. Objective - Vital Signs Vital signs: Vital Signs Temp 97.4 F L 07/05/17 07:00 Pulse 84 07/05/17 07:42 Resp 20 07/05/17 07:00 BP 133/68 07/05/17 07:00 Pulse Ox 95 07/05/17 07:00 Intake & Output 07/04/17 07/05/17 07/05/17 18:59 06:59 18:59 Intake Total 237 300 Balance 237 300 Intake: Oral 237 300 Other: # Voids 1 1 - Exam General appearance: The patient is alert, oriented, in no acute distress. HET: Head is normocephalic and atraumatic. Pupils are equal and reactive. Oropharynx is clear without lesions. Neck: Supple without lymphadenopathy. Trachea midline. Heart: S1 S2. Regular rate and rhythm. Lungs: No crackles or wheezes are heard. Abdomen: Soft, nontender, nondistended with bowel sounds. No peritoneal signs. No palpable organomegaly or masses. Extremities: Normal skin color and turgor. No cyanosis, rash, ulceration, clubbing, or edema. Radial and pedal pulses are 2/4 bilaterally. Neurological: No focal deficits. Strength and sensation are grossly intact. - Labs CBC & Chem 7: 07/05/17 07:56 07/05/17 07:56 Labs: Abnormal Lab Results - Last 24 Hours (Table) 07/05/17 07/05/17 Range/Units 07:56 07:56 RBC 2.69 L (4.30-5.90) m/uL Hgb 8.8 L (13.0-17.5) gm/dL Hct 27.0 L (39.0-53.0) % MCV 100.4 H (80.0-100.0) fL RDW 19.5 H (11.5-15.5) % Calcium 8.3 L (8.4-10.2) mg/dL Assessment and Plan (1) GI bleed Narrative/Plan: Suspect acute upper GI bleeding possible gastritis possible peptic ulcer disease exacerbated by anticoagulation secondary to recent hip surgery. Presently without bleeding stable hemoglobin 8.8. Current Visit: Yes Status: Acute Code(s): K92.2 - GASTROINTESTINAL HEMORRHAGE, UNSPECIFIED SNOMED Code(s): 89635873 (2) Acute blood loss anemia Current Visit: Yes Status: Acute Code(s): D62 - ACUTE POSTHEMORRHAGIC ANEMIA SNOMED Code(s): 416060142 Plan: 1. Recommend continuing Prilosec 20 mg daily and Carafate as needed on discharge. Inpatient EGD is not planned at this time. Diet as tolerated. Discharge per medicine. CBC 3-5 days. Assessment and plan of care discussed with Dr. Vick
--- NOTE | 2017-07-05 19:55 | DS ---
DISCHARGE SUMMARY DATE OF ADMISSION: 07/02/2017. DATE OF DISCHARGE: July 05, 2017. FINAL DIAGNOSES: 1. Acute gastrointestinal bleed in a patient who had been on Xarelto. 2. Chronic colonic diverticulosis. 3. Peripheral artery disease. 4. Chronic obstructive pulmonary disease in an ex-smoker. 5. Essential hypertension. 6. Benign forgetfulness of the elderly. 7. 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 HOSPITAL COURSE: Patient presented with a GI bleed. Did drop his hemoglobin down to 6.9. The patient was transfused a unit of blood. Hemoglobin did come up to 8.8. Suspect this is an upper GI bleed as patient had been on Xarelto until very recently. Per Dr. Vick, the patient could go home. The patient is very keen to go home, feeling rather well. I did speak at length with the patient and his . They will follow up with a CBC. Very keen to go home. EXAM: Lungs decreased breath sounds. Cardiovascular: 1st and 2nd sounds normal. Hemoglobin was 8.8. CONSULTATION: Dr. Vick from Gastroenterology. DISCHARGE MEDICATIONS: 1. Vitamin D3 1000 units p.o. daily. 2. Iron 325 p.o. b.i.d. 3. Prilosec 20 mg p.o. daily. 4. Tylenol 325 p.o. q.4 p.r.n. 5. Symbicort 160/4.5, 2 puffs b.i.d. 6. DuoNeb t.i.d. 7. Ensure Plus half a can 3 times a day. 8. Senokot 1 tab p.o. b.i.d. 9. Norvasc 5 mg p.o. daily. Follow up with Dr. Rubio on July 12, 2017. CBC in 3 days. Care was discussed the patient and . Copy to Dr. Rubio. MMODL / IJN: [id number] /
== END 2017-07-05 14:41 | disposition home health service (06) | DRG 378 ==
LOC: EC 15:30 → 6SEL 17:34 → 4MS4W 07-04 09:50
PROVIDERS: ADMIT Hospitalist; ATTEND Hospitalist
PROC: 30233N1 Transfusion of Nonautologous Red Blood Cells into Peripheral Vein, Percutaneous Approach (ICD-10-PCS; principal; 2017-07-03)
DX: K29.71 Gastritis, unspecified, with bleeding (principal); D62 Acute posthemorrhagic anemia; E78.5 Hyperlipidemia, unspecified; I73.9 Peripheral vascular disease, unspecified; J44.9 Chronic obstructive pulmonary disease, unspecified; F32.9 Major depressive disorder, single episode, unspecified; I10 Essential (primary) hypertension; K57.30 Diverticulosis of large intestine without perforation or abscess without bleeding; K21.9 Gastro-esophageal reflux disease without esophagitis; F03.90 Unspecified dementia, unspecified severity, without behavioral disturbance, psychotic disturbance, mood disturbance, and anxiety; Z79.899 Other long term (current) drug therapy; Z79.51 Long term (current) use of inhaled steroids; Z79.01 Long term (current) use of anticoagulants; Z83.3 Family history of diabetes mellitus; Z83.2 Family history of diseases of the blood and blood-forming organs and certain disorders involving the immune mechanism; Z87.891 Personal history of nicotine dependence; Z90.89 Acquired absence of other organs; Z85.118 Personal history of other malignant neoplasm of bronchus and lung; Z92.3 Personal history of irradiation; Z87.11 Personal history of peptic ulcer disease
CPT/HCPCS: 36415; 80048; 80053; 82272; 82550; 82553; 82607; 83735; 84132; 84484; 85025; 85027; 85610; 85730; 86850; 86900; 86901; 86920; 93005; 94640; 96374; 99285